=== PATIENT | female | born 1940 | race Hispanic/Latino ===

== ENCOUNTER 2018-02-18 05:11 | Emergency (ER) | payer OTHER ==
[2018-02-18 05:54] LABS: Absolute Lymphocytes (CBC) 2.6 K/uL (0.7-4.9); Absolute Monocytes 0.5 K/uL (0.1-1.3); Absolute Neutrophil 3.9 K/uL (1.8-8.0); Basophils % 0.2 % (0-1.3); Eosinophils % 3.9 % (0-4.4); Hematocrit 33.7 % (36.0-45.0); Lymphocytes % 35.8 % (15.3-44.8); MCV 85.7 fL (80-100); Monocytes % 6.2 % (3.3-12.3); RBC Red Blood Cell Count 3.93 M/uL (3.86-4.86)
[2018-02-18] MEDS ORDERED: NA CHLORIDE 0.9% 1,000 ML ONE ×3 (06:04→08:18)
[2018-02-18 06:11] LABS: Albumin 2.6 g/dL (3.4-5.0); Bilirubin Direct 0.1 mg/dL (0-0.2); Bilirubin Total 0.5 mg/dL (0.2-1.0); Protein, Total 6.5 g/dL (6.4-8.2)
[2018-02-18] MEDS ORDERED: METRONIDAZOLE 500mg IVPB 500 MG/100 ML BAG IV ONE (08:18)
[2018-02-18] MEDS ORDERED: CIPROFLOXACIN 400mg IV 400 MG/200 ML BAG IV ONE (08:18)
[2018-02-18 08:41] LABS: Protime INR 1.24
--- NOTE | 2018-02-18 08:41 | EDPHYS ---
Physician Documentation [facility] Name: Mackenzie Cutler Age: 77 yrs Sex: Female : 1940 Arrival Date: 02/18/2018 Time: 05:11 Bed 7 Private MD: ED Physician Corey Mccullough HPI: 02/18 06:03 This 77 yrs old Female presents to ER via EMS with complaints of Rectal kb Bleeding, Syncope. 06:03 The patient presents to the emergency department with bleeding from the rectum/anus, kb that is moderate. Onset: The symptoms/episode began/occurred this morning, at 01:00. Context: the patient has no known special context relating to the rectal area complaint(s). Modifying factors: The symptoms are alleviated by nothing, The symptoms are aggravated by bowel movement. Associate signs and symptoms: Pertinent positives: lower GI bleeding, bright red, Pertinent negatives: abdominal pain, constipation, diarrhea, dysuria, fever, vomiting. The patient has experienced a previous episode. The patient has not recently seen a physician. Pt states she has had 4 bowel movements since 0100 with bright red blood in the toilet afterwards. Sees Dr Granados for GI. PCP is Grzegorz. Historical: - Allergies: 05:27 No Known Allergies; tl2 - Home Meds: 05:34 lisinopril 20 mg Oral tab 1 tab once daily [Active]; aspirin 81 mg Oral TbEC 1 tab once bb daily [Active]; Boniva oral oral [Active]; - PMHx: 05:27 Hypertension; Osteoporosis; tl2 - PSHx: 05:34 Cholecystectomy; Hysterectomy; "vaginal mesh"; bb - Immunization history:: Adult Immunizations up to date. - Social history:: Smoking status: Patient/guardian denies using tobacco. - Ebola Screening: : No symptoms or risks identified at this time. ROS: 06:05 Constitutional: Negative for fever, chills, and weight loss, Cardiovascular: Negative kb for chest pain, palpitations, and edema, Respiratory: Negative for shortness of breath, cough, wheezing, and pleuritic chest pain, MS/Extremity: Negative for injury and deformity, Skin: Negative for injury, rash, and discoloration, Neuro: Negative for headache, weakness, numbness, tingling, and seizure. 06:05 Abdomen/GI: Positive for rectal bleeding, Negative for abdominal pain, nausea, vomiting, and diarrhea, constipation, abdominal cramps, abdominal distension, anorexia. Exam: 06:05 Constitutional: This is a well developed, well nourished patient who is awake, alert, kb and in no acute distress. Head/Face: Normocephalic, atraumatic. Chest/axilla: Normal chest wall appearance and motion. Nontender with no deformity. No lesions are appreciated. Cardiovascular: Regular rate and rhythm with a normal S1 and S2. No gallops, murmurs, or rubs. Normal PMI, no JVD. No pulse deficits. Respiratory: Lungs have equal breath sounds bilaterally, clear to auscultation and percussion. No rales, rhonchi or wheezes noted. No increased work of breathing, no retractions or nasal flaring. Abdomen/GI: Soft, non-tender, with normal bowel sounds. No distension or tympany. No guarding or rebound. No evidence of tenderness throughout. Skin: Warm, dry with normal turgor. Normal color with no rashes, no lesions, and no evidence of cellulitis. MS/ Extremity: Pulses equal, no cyanosis. Neurovascular intact. Full, normal range of motion. Neuro: Awake and alert, GCS 15, oriented to person, place, time, and situation. Cranial nerves II-XII grossly intact. Motor strength 5/5 in all extremities. Sensory grossly intact. Cerebellar exam normal. Normal gait. 06:13 Abdomen/GI: gross blood noted . kb Vital Signs: 05:27 BP 116 / 49; Pulse 75; Resp 16; Temp 97.8(O); Pulse Ox 97% on R/A; Weight 70.31 kg; tl2 Height 5 ft. 2 in. (157.48 cm); Pain 0/10; 06:03 BP 105 / 51 Supine; Pulse 72; Resp 18; bb 06:04 BP 111 / 54; Pulse 73; bb 06:06 BP 96 / 44; Pulse 76; bb 07:54 BP 98 / 40; Pulse 78; Resp 18; Pulse Ox 98% on R/A; jb1 08:39 BP 140 / 67; Pulse 87; Resp 16; Pulse Ox 98% ; jl7 09:14 BP 122 / 67; Pulse 83; Resp 17; Pulse Ox 100% on R/A; jb1 10:15 BP 118 / 56; Pulse 87; Resp 16; Pulse Ox 97% ; jl7 11:15 BP 109 / 53; Pulse 78; Resp 16; Pulse Ox 97% ; jl7 12:36 BP 104 / 84; Pulse 79; Resp 16; Pulse Ox 97% ; jl7 05:27 Body Mass Index 28.35 (70.31 kg, 157.48 cm) tl2 MDM: 05:59 Patient medically screened. kb 06:05 Data reviewed: vital signs, nurses notes. Data interpreted: Pulse oximetry: on room air kb is 97 %. Interpretation: normal. 06:15 ED course: Pt became lightheaded upon standing for orthostatic blood pressure. kb Orthostatic positive. 08:02 Physician consultation: Song Granados MD was called at 07:50, left message . kb 08:22 Physician consultation: Song Granados MD Called at 0805 and 0820 with no answer. Will kb initiate transfer. 08:40 Counseling: I had a detailed discussion with the patient and/or guardian regarding: the kb historical points, exam findings, and any diagnostic results supporting the discharge/admit diagnosis, lab results, radiology results, the need to transfer to another facility, [facility] does not immediately have the required specialist. 02/18 05:39 Order name: Amylase, Serum; Complete Time: 06:12 bb 02/18 05:39 Order name: Basic Metabolic Panel; Complete Time: 06:12 bb 02/18 05:39 Order name: CBC with Diff; Complete Time: 05:59 bb 02/18 05:39 Order name: Creatinine for Radiology; Complete Time: 06:12 bb 02/18 05:39 Order name: Hepatic Function; Complete Time: 06:12 bb 02/18 05:39 Order name: Lipase; Complete Time: 06:12 bb 02/18 05:39 Order name: Type And Screen; Complete Time: 10:39 bb 02/18 08:08 Order name: Bb Add On bd 02/18 08:09 Order name: PT-INR; Complete Time: 08:51 kb 02/18 08:09 Order name: Ptt, Activated; Complete Time: 08:51 kb 02/18 08:09 Order name: Troponin (emerg Dept Use Only); Complete Time: 08:51 kb 02/18 08:24 Order name: ABO rpt EDMS 02/18 05:39 Order name: IV Saline Lock; Complete Time: 05:39 bb 02/18 05:39 Order name: Labs collected and sent; Complete Time: 05:39 bb 02/18 07:43 Order name: Vital Signs; Complete Time: 08:39 kb 02/18 08:09 Order name: Cardiac monitoring; Complete Time: 08:38 kb 02/18 08:09 Order name: EKG; Complete Time: 08:09 kb 02/18 08:09 Order name: EKG - Nurse/Tech; Complete Time: 10:11 kb Administered Medications: 06:14 Drug: NS 0.9% 1000 ml Route: IV; Rate: 1000 ml; Site: right antecubital; bb 07:15 Follow up: IV Status: Completed infusion jl7 08:25 Drug: Cipro 400 mg Volume: 200 ml; Route: IVPB; Infused Over: 60 mins; Site: right jl7 antecubital; 09:25 Follow up: Response: No adverse reaction; IV Status: Completed infusion jl7 08:30 Drug: NS 0.9% 1000 ml Route: IV; Rate: 125 ml/hr; Site: right antecubital; jl7 12:39 Follow up: IV Status: Infusion continued upon transfer jl7 08:38 Drug: Flagyl 500 mg Volume: 100 ml; Route: IVPB; Rate: 200 ml/hr; Infused Over: 30 jl7 mins; Site: right antecubital; 09:08 Follow up: Response: No adverse reaction; IV Status: Completed infusion jl7 Disposition: 02/18/18 08:41 Transfer ordered to [facility]. Diagnosis is Gastrointestinal hemorrhage, unspecified. - Reason for transfer: Higher level of care. - Accepting physician is Mary. - Condition is Stable. - Problem is new. - Symptoms are unchanged. Addendum: 03/05/2018 19:00 Co-signature as Attending Physician, Corey Mccullough MD. lindsey frazier Signatures: Dispatcher [employer] EDNasrin Cabrales, CURRENCY EXAMINER-C CURRENCY EXAMINER-Corey Brewster MD MD pkl Ballard, Brenda, RN RN Taylor Villarreal, RN RN tl2 Tigre Pisano RN RN jl7 Corrections: (The following items were deleted from the chart) 02/18 06:12 06:03 Pt states she has had 4 bowel movements since 0100 with bright red blood in the kb toilet afterwards. . kb 06:41 06:03 Pt states she has had 4 bowel movements since 0100 with bright red blood in the kb toilet afterwards. Sees Dr Granados for GI. kb 10:31 08:24 Packed RBCs (Additional Unit) ordered. EDMS EDMS 12:38 08:41 02/18/2018 08:41 Transfer ordered to [facility]. Diagnosis is jl7 Gastrointestinal hemorrhage, unspecified. Reason for transfer: Higher level of care. Accepting physician is Mary. Condition is Stable. Problem is new. Symptoms are unchanged. kb
--- NOTE | 2018-02-18 08:41 | ER ---
Nurse's Notes [facility] Name: Mackenzie Cutler Age: 77 yrs Sex: Female : 1940 Arrival Date: 02/18/2018 Time: 05:11 Bed 7 Private MD: Diagnosis: Gastrointestinal hemorrhage, unspecified Presentation: 02/18 05:25 Presenting complaint: Patient states: woke up this morning and had 4-5 episodes of tl2 bright red stool. Pt reports feeling dizzy and weak. Transition of care: patient was not received from another setting of care. Onset of symptoms was February 18, 2018 at 04:30. Risk Assessment: Do you want to hurt yourself or someone else? Patient reports no desire to harm self or others. Initial Sepsis Screen: Does the patient meet any 2 criteria? No. Patient's initial sepsis screen is negative. Does the patient have a suspected source of infection? No. Patient's initial sepsis screen is negative. Care prior to arrival: None. 05:25 Method Of Arrival: EMS: [facility] tl2 05:25 Acuity: KAREN 3 tl2 Historical: - Allergies: 05:27 No Known Allergies; tl2 - Home Meds: 05:34 lisinopril 20 mg Oral tab 1 tab once daily [Active]; aspirin 81 mg Oral TbEC 1 tab once bb daily [Active]; Boniva oral oral [Active]; - PMHx: 05:27 Hypertension; Osteoporosis; tl2 - PSHx: 05:34 Cholecystectomy; Hysterectomy; "vaginal mesh"; bb - Immunization history:: Adult Immunizations up to date. - Social history:: Smoking status: Patient/guardian denies using tobacco. - Ebola Screening: : No symptoms or risks identified at this time. Screenin:28 Abuse screen: Denies threats or abuse. Nutritional screening: No deficits noted. tl2 Tuberculosis screening: No symptoms or risk factors identified. Fall Risk Gait- Weak (10 pts.). Assessment: 05:36 General: Appears in no apparent distress. Behavior is calm, cooperative. Pain: Denies bb pain. Neuro: Level of Consciousness is awake, alert, obeys commands, Oriented to person, place, time, situation. Cardiovascular: Heart tones S1 S2 present Capillary refill < 3 seconds Patient's skin is warm and dry. Pulses are all present. Edema is absent. Rhythm is sinus rhythm. Respiratory: Respiratory effort is even, unlabored, Respiratory pattern is regular, Breath sounds are clear bilaterally. GI: Abdomen is non-distended, Bowel sounds present X 4 quads. Abd is soft and non tender X 4 quads. Reports rectal bleeding. : No signs and/or symptoms were reported regarding the genitourinary system. Derm: Skin is dry, Skin is normal, Skin temperature is warm. Musculoskeletal: Circulation, motion, and sensation intact. 06:25 Reassessment: Patient and/or family updated on plan of care and expected duration. Pain bb level reassessed. Patient is alert, oriented x 3, equal unlabored respirations, skin warm/dry/pink. 07:30 Reassessment: Patient and/or family updated on plan of care and expected duration. Pain jl7 level reassessed. Patient is alert, oriented x 3, equal unlabored respirations, skin warm/dry/pink. 08:30 Reassessment: Patient and/or family updated on plan of care and expected duration. Pain jl7 level reassessed. Patient is alert, oriented x 3, equal unlabored respirations, skin warm/dry/pink. ERP at bedside discussing plan of care. 08:59 Reassessment: ERIK Galvez at [facility] is unable to take report at this jl7 time and will call to get report. 09:30 Reassessment: Report given to ERIK Galvez. jl 10:30 Reassessment: Awaiting EMS transportation to return from another transfer, Pt and jl7 family updated. 11:30 Reassessment: Patient and/or family updated on plan of care and expected duration. Pain jl7 level reassessed. Patient is alert, oriented x 3, equal unlabored respirations, skin warm/dry/pink. 12:37 Reassessment: [facility] at bedside to transfer pt. jl7 Vital Signs: 05:27 BP 116 / 49; Pulse 75; Resp 16; Temp 97.8(O); Pulse Ox 97% on R/A; Weight 70.31 kg; tl2 Height 5 ft. 2 in. (157.48 cm); Pain 0/10; 06:03 BP 105 / 51 Supine; Pulse 72; Resp 18; bb 06:04 BP 111 / 54; Pulse 73; bb 06:06 BP 96 / 44; Pulse 76; bb 07:54 BP 98 / 40; Pulse 78; Resp 18; Pulse Ox 98% on R/A; jb1 08:39 BP 140 / 67; Pulse 87; Resp 16; Pulse Ox 98% ; jl7 09:14 BP 122 / 67; Pulse 83; Resp 17; Pulse Ox 100% on R/A; jb1 10:15 BP 118 / 56; Pulse 87; Resp 16; Pulse Ox 97% ; jl7 11:15 BP 109 / 53; Pulse 78; Resp 16; Pulse Ox 97% ; jl7 12:36 BP 104 / 84; Pulse 79; Resp 16; Pulse Ox 97% ; jl7 05:27 Body Mass Index 28.35 (70.31 kg, 157.48 cm) tl2 ED Course: 05:11 Patient arrived in ED. ds1 05:26 Triage completed. tl2 05:27 Arm band placed on right wrist. tl2 05:28 Patient has correct armband on for positive identification. Placed in gown. Bed in low tl2 position. Call light in reach. Side rails up X2. 05:28 Inserted saline lock: 20 gauge in right antecubital area, using aseptic technique. tl2 Blood collected. placed by ERIK Galeana. 05:36 Warm blanket given. bb 05:45 Initial lab(s) drawn, by [facility], sent to lab. T\\T\\S collected, blood band applied to patient. bb 05:51 Susana Mota RN is Primary Nurse. ea 05:58 Nasrin Matos FNP-C is PHCP. kb 05:58 Croey Mccullough MD is Attending Physician. kb 08:30 Inserted saline lock: 20 gauge in left forearm, using aseptic technique. jl7 08:30 No provider procedures requiring assistance completed. Patient transferred, IV remains jl7 in place. intact, No redness/swelling at site. 08:39 Primary Nurse role handed off by Susana Mota RN jl7 08:39 Tigre Pisano RN is Primary Nurse. jl7 09:45 Assisted to bedside commode. jl7 11:00 transfer transportation to receiving facility. jl7 11:53 Assisted to bedside commode. jl7 Administered Medications: 06:14 Drug: NS 0.9% 1000 ml Route: IV; Rate: 1000 ml; Site: right antecubital; bb 07:15 Follow up: IV Status: Completed infusion jl7 08:25 Drug: Cipro 400 mg Volume: 200 ml; Route: IVPB; Infused Over: 60 mins; Site: right jl7 antecubital; 09:25 Follow up: Response: No adverse reaction; IV Status: Completed infusion jl7 08:30 Drug: NS 0.9% 1000 ml Route: IV; Rate: 125 ml/hr; Site: right antecubital; jl7 12:39 Follow up: IV Status: Infusion continued upon transfer jl7 08:38 Drug: Flagyl 500 mg Volume: 100 ml; Route: IVPB; Rate: 200 ml/hr; Infused Over: 30 jl7 mins; Site: right antecubital; 09:08 Follow up: Response: No adverse reaction; IV Status: Completed infusion jl7 Outcome: 08:41 ER care complete, transfer ordered by MD. muhammad 12:35 Transferred by ground EMS to [facility], Transfer form completed. jl7 X-rays sent w/ patient. 12:35 Condition: stable 12:35 Discharge instructions given to patient, family, Instructed on the need for transfer, Demonstrated understanding of instructions. 12:38 Patient left the ED. jl7 Signatures: Chucky Atwood1 Nasrin Matos, COMMUNITY SPECIALIST-C COMMUNITY SPECIALIST-Britney Carlton ds1 Lissett Tomas RN RN bb Taylor Mendez RN RN tl2 Tigre Pisano RN RN jl7 Susana Mota RN RN ea
--- NOTE | 2018-02-19 07:51 | EKG ---
Test Date: 2018-02-18 Test Time: 10:07:15 Parking Lot Spotter: COLT MEASUREMENT RESULTS: Intervals: Rate: 86 KS: 172 QRSD: 86 QT: 414 QTc: 495 [place]: P: 55 KS: 172 QRS: 58 T: 35 INTERPRETIVE STATEMENTS: Normal sinus rhythm Prolonged QT Abnormal ECG Compared to ECG 08/22/2017 23:03:32 Prolonged QT interval now present ST (T wave) deviation no longer present Electronically Signed On 02-19-18 07:50:41 CDT by Enrico Morocho
== END 2018-02-18 12:38 | disposition short-term general hospital (02) ==
LOC: ER 05:11
DX: K92.2 Gastrointestinal hemorrhage, unspecified (principal); I10 Essential (primary) hypertension; M81.0 Age-related osteoporosis without current pathological fracture
CPT/HCPCS: 36415; 80048; 80076; 82150; 83690; 84484; 85025; 85610; 85730; 86850; 86900; 86901; 93005; J0744; J7030 ×3; 96361; 96365; 99285

== ENCOUNTER 2019-07-14 12:58 | Emergency (ER) | payer OTHER ==
--- OUTSIDE RECORDS SUMMARY | 2019-07-14 13:00 | XMS REPORT ---
:1940 [facility] Address [address] [place] [address] Care Team Providers Name Role Phone RACHELLE BURT Unavailable Unavailable Problems This patient has no known problems. Allergies, Adverse Reactions, Alerts This patient has no known allergies or adverse reactions. Medications This patient has no known medications. 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 Signing Pathologist Direct Phone Line: [phone] signed by Shashank Francis MD on 02/20/2018 at 3:34 [id number] bleedingA. Appendiceal orifice polyp. B. Hepatic flexure polyp. C. Sigmoid colon polyp Specimen A: Received in formalin labeled "polyp", description "appendiceal orifice polyp" are three fragments measuring 0.6 x 0.6 x 0.1 cm in aggregate. Specimen is entirely submitted in A1. Specimen B: Received in formalin labeled "polyp, colon hepatic flexure" is a single fragment measuring 0.5 cm in greatest dimension. Specimen is entirely submitted in B1.Specimen C: Received in formalin labeled "polyp, colon sigmoid" is a single fragment measuring 0.5 cm in greatest dimension. Specimen is entirely submitted in C1. DB/ew PERFORMED. FERRITIN 2018-02-20 13:42:00 Test Item Value Reference Range Comments FERRITIN (BEAKER) (test wsyo=533) 23 ng/mL 5-275 IRON, TIBC, % SAT. (WITHOUT FERRITIN)2018-02-20 13:22:00 Test Item Value Reference Range Comments IRON (BEAKER) (test ggly=186) 22 ug/dL 40-160 TOTAL IRON BINDING CAPACITY (BEAKER) (test 263 ug/dL 250-450 kzpc=550) IRON % SATURATION (2) (BEAKER) (test aljg=8649) 8 % 20-55 HEMOGLOBIN AND [id number] 12:16:00 Test Item Value Reference Range Comments HEMOGLOBIN (BEAKER) (test jvtn=317) 7.3 GM/DL 11.2-15.7 HEMATOCRIT (BEAKER) (test vjhc=029) 22.7 % 34.1-44.9 HEMOGLOBIN AND [id number] 04:48:00 Test Item Value Reference Range Comments HEMOGLOBIN (BEAKER) (test gfvx=317) 7.4 GM/DL 11.2-15.7 HEMATOCRIT (BEAKER) (test bmvz=379) 22.7 % 34.1-44.9 HEMOGLOBIN AND [id number] 18:18:00 Test Item Value Reference Range Comments HEMOGLOBIN (BEAKER) (test mpap=550) 8.9 GM/DL 11.2-15.7 HEMATOCRIT (BEAKER) (test fysc=542) 27.8 % 34.1-44.9 HEMOGLOBIN AND [id number] 12:13:00 Test Item Value Reference Range Comments HEMOGLOBIN (BEAKER) (test jgzm=944) 6.5 GM/DL 11.2-15.7 HEMATOCRIT (BEAKER) (test bggt=393) 20.2 % 34.1-44.9 [id number] 03:43:00 Test Item Value Reference Range Comments MAGNESIUM (BEAKER) (test ohrl=492) 2.2 mg/dL 1.6-2.6 BASIC METABOLIC [id number] 03:43:00 Test Item Value Reference Range Comments SODIUM (BEAKER) (test 141 meq/L 136-145 scni=224) POTASSIUM (BEAKER) (test 3.9 meq/L 3.5-5.1 vfuu=564) CHLORIDE (BEAKER) (test 113 meq/L 98-107 khfq=058) CO2 (BEAKER) (test 22 meq/L 22-29 wyvb=217) BLOOD UREA NITROGEN 29 mg/dL 7-21 (BEAKER) (test eahw=733) CREATININE (BEAKER) (test 0.77 mg/dL 0.57-1.25 anpj=058) GLUCOSE RANDOM (BEAKER) 147 mg/dL 70-105 (test dozb=856) CALCIUM (BEAKER) (test 8.5 mg/dL 8.4-10.2 zbfa=364) EGFR (BEAKER) (test 73 mL/min/1.73 sq m ESTIMATED GFR IS NOT qhhw=8997) ACCURATE CREATININE CLEARANCE IN PREDICTING GLOMERULAR FILTRATION RATE. ESTIMATED GFR IS NOT APPLICABLE FOR DIALYSIS PATIENTS. HEMOGLOBIN AND [id number] 03:24:00 Test Item Value Reference Range Comments HEMOGLOBIN (BEAKER) (test dbud=376) 7.5 GM/DL 11.2-15.7 HEMATOCRIT (BEAKER) (test mtga=344) 23.6 % 34.1-44.9 CBC W/PLT COUNT & AUTO [id number] 03:24:00 Test Item Value Reference Range Comments WHITE BLOOD CELL COUNT (BEAKER) (test qaxi=408) 8.7 K/ L 3.5-10.5 RED BLOOD CELL COUNT (BEAKER) (test jsbz=540) 2.65 M/ L 3.93-5.22 HEMOGLOBIN (BEAKER) (test uvoe=658) 7.5 GM/DL 11.2-15.7 HEMATOCRIT (BEAKER) (test abeq=420) 23.6 % 34.1-44.9 MEAN CORPUSCULAR VOLUME (BEAKER) (test vrhm=064) 89.1 fL 79.4-94.8 MEAN CORPUSCULAR HEMOGLOBIN (BEAKER) (test 28.3 pg 25.6-32.2 ynjb=737) MEAN CORPUSCULAR HEMOGLOBIN CONC (BEAKER) (test 31.8 GM/DL 32.2-35.5 txtv=142) RED CELL DISTRIBUTION WIDTH (BEAKER) (test 15.4 % 11.7-14.4 gmid=408) PLATELET COUNT (BEAKER) (test pzwv=383) 126 K/CU MM 150-450 MEAN PLATELET VOLUME (BEAKER) (test pavd=681) 11.8 fL 9.4-12.3 NUCLEATED RED BLOOD CELLS (BEAKER) (test 0 /100 WBC 0-0 kzkf=187) NEUTROPHILS RELATIVE PERCENT (BEAKER) (test 68 % petn=181) LYMPHOCYTES RELATIVE PERCENT (BEAKER) (test 24 % ntdc=802) MONOCYTES RELATIVE PERCENT (BEAKER) (test 6 % lzeu=133) EOSINOPHILS RELATIVE PERCENT (BEAKER) (test 1 % ufoy=369) BASOPHILS RELATIVE PERCENT (BEAKER) (test 0 % oygb=969) NEUTROPHILS ABSOLUTE COUNT (BEAKER) (test 5.95 K/ L 1.56-6.13 brue=189) LYMPHOCYTES ABSOLUTE COUNT (BEAKER) (test 2.13 K/ L 1.18-3.74 ydis=761) MONOCYTES ABSOLUTE COUNT (BEAKER) (test 0.53 K/ L 0.24-0.36 dnyk=546) EOSINOPHILS ABSOLUTE COUNT (BEAKER) (test 0.04 K/ L 0.04-0.36 bppq=234) BASOPHILS ABSOLUTE COUNT (BEAKER) (test 0.01 K/ L 0.01-0.08 bafz=722) IMMATURE GRANULOCYTES-RELATIVE PERCENT (BEAKER) 1 % 0-1 (test rdsn=3946) HEMOGLOBIN AND [id number] 23:21:00 Test Item Value Reference Range Comments HEMOGLOBIN (BEAKER) (test jais=043) 8.0 GM/DL 11.2-15.7 HEMATOCRIT (BEAKER) (test ycyt=006) 24.6 % 34.1-44.9 [id number] 18:18:00 Test Item Value Reference Range Comments MAGNESIUM (BEAKER) (test aozz=469) 1.6 mg/dL 1.6-2.6 BASIC METABOLIC [id number] 18:18:00 Test Item Value Reference Range Comments SODIUM (BEAKER) (test 139 meq/L 136-145 gnnp=705) POTASSIUM (BEAKER) (test 4.1 meq/L 3.5-5.1 yojq=262) CHLORIDE (BEAKER) (test 112 meq/L 98-107 yffy=867) CO2 (BEAKER) (test 24 meq/L 22-29 eafo=279) BLOOD UREA NITROGEN 27 mg/dL 7-21 (BEAKER) (test rjpn=066) CREATININE (BEAKER) (test 0.73 mg/dL 0.57-1.25 tcev=271) GLUCOSE RANDOM (BEAKER) 119 mg/dL 70-105 (test ycok=810) CALCIUM (BEAKER) (test 8.8 mg/dL 8.4-10.2 guvz=405) EGFR (BEAKER) (test 77 mL/min/1.73 sq m ESTIMATED GFR IS NOT tstb=8875) ACCURATE CREATININE CLEARANCE IN PREDICTING GLOMERULAR FILTRATION RATE. ESTIMATED GFR IS NOT APPLICABLE FOR DIALYSIS PATIENTS. [id number] 18:06:00 Test Item Value Reference Range Comments PROTIME (BEAKER) (test doai=057) 17.5 seconds 11.7-14.7 INR (BEAKER) (test ilok=988) 1.4 <=5.9 PARTIAL THROMBOPLASTIN TIME (BEAKER) (test 34.1 seconds 22.5-36.0 offf=388) RECOMMENDED COUMADIN/WARFARIN INR THERAPY RANGESSTANDARD DOSE: 2.0 - 3.0 Includes: PROPHYLAXIS forvenous thrombosis, systemic embolization; TREATMENT for venous thrombosis and/or pulmonary embolus.HIGH RISK: Target INR is 2.5-3.5 for patients with mechanical heart valves.CBC W/PLT COUNT & AUTO [id number] 17:58:00 Test Item Value Reference Range Comments WHITE BLOOD CELL COUNT (BEAKER) (test ouey=952) 8.5 K/ L 3.5-10.5 RED BLOOD CELL COUNT (BEAKER) (test jeus=034) 3.09 M/ L 3.93-5.22 HEMOGLOBIN (BEAKER) (test djty=968) 8.8 GM/DL 11.2-15.7 HEMATOCRIT (BEAKER) (test sjnx=433) 27.5 % 34.1-44.9 MEAN CORPUSCULAR VOLUME (BEAKER) (test xsck=577) 89.0 fL 79.4-94.8 MEAN CORPUSCULAR HEMOGLOBIN (BEAKER) (test 28.5 pg 25.6-32.2 emsk=301) MEAN CORPUSCULAR HEMOGLOBIN CONC (BEAKER) (test 32.0 GM/DL 32.2-35.5 khcr=896) RED CELL DISTRIBUTION WIDTH (BEAKER) (test 15.0 % 11.7-14.4 ktri=519) PLATELET COUNT (BEAKER) (test kfps=517) 122 K/CU MM 150-450 MEAN PLATELET VOLUME (BEAKER) (test leyx=250) 11.2 fL 9.4-12.3 NUCLEATED RED BLOOD CELLS (BEAKER) (test 0 /100 WBC 0-0 cgba=331) NEUTROPHILS RELATIVE PERCENT (BEAKER) (test 66 % rqqi=571) LYMPHOCYTES RELATIVE PERCENT (BEAKER) (test 26 % acwl=579) MONOCYTES RELATIVE PERCENT (BEAKER) (test 7 % tlze=614) EOSINOPHILS RELATIVE PERCENT (BEAKER) (test 1 % tiqb=610) BASOPHILS RELATIVE PERCENT (BEAKER) (test 0 % jpjd=520) NEUTROPHILS ABSOLUTE COUNT (BEAKER) (test 5.60 K/ L 1.56-6.13 mqie=720) LYMPHOCYTES ABSOLUTE COUNT (BEAKER) (test 2.18 K/ L 1.18-3.74 dwnr=871) MONOCYTES ABSOLUTE COUNT (BEAKER) (test 0.58 K/ L 0.24-0.36 kbgy=218) EOSINOPHILS ABSOLUTE COUNT (BEAKER) (test 0.06 K/ L 0.04-0.36 uxvv=452) BASOPHILS ABSOLUTE COUNT (BEAKER) (test 0.02 K/ L 0.01-0.08 rlhk=572) IMMATURE GRANULOCYTES-RELATIVE PERCENT (BEAKER) 0 % 0-1 (test ntas=5626) RAD, CHEST, 1 VIEW, NON [id number] 17:41:00Reason for exam:->coughShould this be performed at the bedside?->YesFINAL REPORT Comparison: None TECHNIQUE: Single view of the chest FINDINGS: There is atelectasis in the lung bases. Otherwise lungs are clear. Cardiac silhouette is within normallimits. Aortic calcifications are seen. No acute skeletal abnormality. Signed: Antonella Tomlinson Verified Date/Time: 02/18/2018 17:41: 25 Reading Location: [address] Reading Room
[2019-07-14] MEDS ORDERED: HYDROCODONE/APAP 5/325 MG TAB ONE (14:10)
[2019-07-14 14:28] LABS: Absolute Lymphocytes (CBC) 1.7 K/uL (0.7-4.9); Basophils % 0.5 % (0-1.3); Hematocrit 43.2 % (36.0-45.0); MPV 10.5 fL (7.6-11.3); RBC Red Blood Cell Count 4.78 M/uL (3.86-4.86)
[2019-07-14 14:41] LABS: BUN Blood Urea Nitrogen 17 mg/dL (7-18); Bicarbonate 28 mmol/L (21-32); Glucose Level 122 mg/dL (74-106); Potassium 3.8 mmol/L (3.5-5.1); Sodium Level 144 mmol/L (136-145); Troponin (Emerg Dept Use Only) < 0.02 ng/mL (0.0-0.045)
--- NOTE | 2019-07-14 15:16 | RAD REPORT ---
EXAM DESCRIPTION: RAD - Chest Single View - 07/14/2019 2:08 pm CLINICAL HISTORY: mid scapular pain Chest pain. COMPARISON: Chest Single View dated 08/22/2017 FINDINGS: Portable technique limits examination quality. The lungs are grossly clear. The heart is mildly enlarged in size. Chronic blunting the left costophr enic angle noted. IMPRESSION: Stable chest since 08/22/2017.
--- NOTE | 2019-07-14 15:52 | RAD REPORT ---
EXAM DESCRIPTION: CT - Angio Aorta For Dissection - 07/14/2019 3:37 pm CLINICAL HISTORY: Chest pain radiating to the back. HTN, mid scapular pain COMPARISON: LUMBAR SPINE 3 VIEWS dated 08/27/2015 TECHNIQUE: CT angiography of the aorta was performed with MIPs. All CT scans are performed using dose optimization technique as appropriate and may include automated exposure control or mA/KV adjustment according to patient size. FINDINGS: A left aortic arch is present with bovine branching pattern of the great vessels.No aortic dissection is seen. A small infrarenal abdominal aortic aneurysm is present measuring 3.2 cm in ante rior-posterior dimension. No flow-limiting stenosis. The celiac axis, SMA, SAÚL and renal arteries ar e patent with prominent atherosclerosis noted. Moderate soft plaque is present narrowing the SMA mode rately. . No evidence of pulmonary embolism. Linear atelectasis is present in both lung bases. No focal infiltrate is evident. Mild liver cirrhosis pattern is seen with nodular contour. Small hiatal hernia. Spleen is mildly enla rged.Pancreas, adrenal glands and kidneys show no acute process. No bowel obstruction, free fluid or abscess.Prominent sigmoid diverticulosis coli without diverticuli tis. The appendix is normal.No pathologic enlarged lymphadenopathy identified.Small bilateral fat con taining inguinal hernia. High-grade T11 compression fractures seen, likely chronic. IMPRESSION: No acute aortic finding is demonstrated. Mild cirrhosis. Prominent diverticulosis coli involving the sigmoid colon without diverticulitis.
--- NOTE | 2019-07-14 16:07 | ER ---
Nurse's Notes [facility] Name: Mackenzie Cutler Age: 78 yrs Sex: Female : 1940 Arrival Date: 07/14/2019 Time: 13:00 Bed 7 Private MD: Diagnosis: Muscle spasm of back;Abdominal aortic aneurysm, without rupture Presentation: 07/14 13:07 Presenting complaint: Child states: "This morning at 5:30 they called EMS because her aj1 blood pressure was really high but she didn't want to come in. But now her blood pressure was 201/95 and she has chest pressure that goes all the way to her back". Transition of care: patient was not received from another setting of care. Onset of symptoms was July 14, 2019. Risk Assessment: Do you want to hurt yourself or someone else? Patient reports no desire to harm self or others. Initial Sepsis Screen: Does the patient meet any 2 criteria? No. Patient's initial sepsis screen is negative. Does the patient have a suspected source of infection? No. Patient's initial sepsis screen is negative. Care prior to arrival: None. 13:07 Method Of Arrival: Ambulatory aj 13:07 Acuity: KAREN 3 aj1 Triage Assessment: 13:09 General: Appears in no apparent distress. comfortable, Behavior is calm, cooperative, aj1 appropriate for age. Pain: Complains of pain in chest Pain radiates to back Pain currently is 8 out of 10 on a pain scale. Neuro: Level of Consciousness is awake, alert, obeys commands. Cardiovascular: Patient's skin is warm and dry. Respiratory: Airway is patent Respiratory effort is even, unlabored, Respiratory pattern is regular, symmetrical. Historical: - Allergies: 13:09 No Known Allergies; aj1 - Home Meds: 13:09 lisinopril 20 mg Oral tab 1 tab once daily [Active]; aj1 - PMHx: 13:09 Hypertension; Osteoporosis; aj1 - Immunization history:: Flu vaccine is up to date. - Social history:: Smoking status: Patient/guardian denies using tobacco. - Ebola Screening: : Patient denies travel to an Ebola-affected area in the 21 days before illness onset. - Family history:: not pertinent. - Hospitalizations: : No recent hospitalization is reported. Assessment: 13:30 General: Appears in no apparent distress. well groomed, well developed, well nourished, sg Behavior is calm, cooperative, appropriate for age. Pain: Complains of pain in back Quality of pain is described as aching, dull. Neuro: Level of Consciousness is awake, alert, obeys commands, Oriented to person, place, time, Barber Tool Sharpener are equal bilaterally Moves all extremities. Speech is normal, Facial symmetry appears normal. Cardiovascular: Capillary refill is brisk in bilateral fingers Patient's skin is warm and dry. Chest pain is denied. Respiratory: Airway is patent Respiratory effort is even, unlabored, Respiratory pattern is regular, symmetrical. GI: Abdomen is round non-distended, Reports normal bowel habits, tolerance of fluids, tolerance of food. : No signs and/or symptoms were reported regarding the genitourinary system. EENT: No signs and/or symptoms were reported regarding the EENT system. Derm: Skin is pink, warm \\T\\ dry. Musculoskeletal: Circulation, motion, and sensation intact. Range of motion: intact in all extremities. Vital Signs: 13:09 BP 150 / 83; Pulse 86; Resp 18; Temp 98.2; Pulse Ox 98% on R/A; Weight 68.04 kg (R); aj1 Height 5 ft. 2 in. (157.48 cm) (R); 14:59 Pulse 72; Resp 17 S; Temp 98.2; Pulse Ox 96% on R/A; sg 14:59 BP 153 / 70; sg 13:09 Body Mass Index 27.44 (68.04 kg, 157.48 cm) aj1 ED Course: 13:00 Patient arrived in ED. as 13:08 Triage completed. aj1 13:09 Arm band placed on Patient placed in an exam room. aj1 13:13 Marcus Leon, RN is Primary Nurse. sg 13:21 Linden Díaz MD is Attending Physician. rn 14:08 XRAY Chest (1 view) In Process Unspecified. EDMS 14:16 Initial lab(s) drawn, by me, sent to lab. Inserted saline lock: 20 gauge in right em1 antecubital area, using aseptic technique. Blood collected. 15:37 CT Aorta for Dissection In Process Unspecified. EDMS 15:37 CT completed. Patient tolerated procedure well. Patient moved back from CT. bq Administered Medications: 14:19 Drug: [place] 5 mg-325 mg 1 tabs Route: PO; 15:01 Follow up: Response: No adverse reaction sg Outcome: 16:06 Discharge ordered by MD. ponce 16:31 Patient left the ED. sg Signatures: Dispatcher [employer] EDIwona Flowers RN RN aj1 Marcus Leon RN RN sg Quilty, Betty bq Martinez, Amelia as Nieto, Roman, MD MD rn Martinez, Mat 1
--- NOTE | 2019-07-14 16:07 | EDPHYS ---
Physician Documentation [facility] Name: Mackenzie Cutler Age: 78 yrs Sex: Female : 1940 Arrival Date: 07/14/2019 Time: 13:00 Bed 7 Private MD: ED Physician Linden Díaz HPI: 07/14 13:43 This 78 yrs old Female presents to ER via Ambulatory with complaints of High rn Blood Pressure. 13:43 This 78 yrs old Female presents to ER via Ambulatory with complaints of High rn Blood Pressure, back pain. 13:43 The patient has elevated blood pressure and discovered this at home. rn 13:44 The patient presents with pain that is acute. The symptoms are located in the mid rn scapular pain. Onset: The symptoms/episode began/occurred today. The pain does not radiate. Associated signs and symptoms: The patient has no apparent associated signs or symptoms, Pertinent negatives: chest pain, fever, hematuria, incontinence, nausea, numbness, tingling, urinary retention, vomiting, weakness. Modifying factors: The patient symptoms are alleviated by nothing, the patient symptoms are aggravated by movement. Severity of symptoms: At their worst the symptoms were mild, in the emergency department the symptoms are unchanged. The patient has not experienced similar symptoms in the past. Reports has been climbing up and down to take down lucrecia decorations, now having mid scapular pain that comes and goes, lasts only for seconds, no radiation, no direct trauma. No fever/cough/sob. Seen earlier by EMS and cleared, so stayed home.. Historical: - Allergies: 13:09 No Known Allergies; aj1 - Home Meds: 13:09 lisinopril 20 mg Oral tab 1 tab once daily [Active]; aj1 - PMHx: 13:09 Hypertension; Osteoporosis; aj1 - Immunization history:: Flu vaccine is up to date. - Social history:: Smoking status: Patient/guardian denies using tobacco. - Ebola Screening: : Patient denies travel to an Ebola-affected area in the 21 days before illness onset. - Family history:: not pertinent. - Hospitalizations: : No recent hospitalization is reported. ROS: 13:44 Constitutional: Negative for fever, chills, and weight loss, Eyes: Negative for injury, rn pain, redness, and discharge, Neck: Negative for injury, pain, and swelling, Cardiovascular: Negative for chest pain, palpitations, and edema, Respiratory: Negative for shortness of breath, cough, wheezing, and pleuritic chest pain, Abdomen/GI: Negative for abdominal pain, nausea, vomiting, diarrhea, and constipation, Back: + mid scapular pain MS/Extremity: Negative for injury and deformity, Skin: Negative for injury, rash, and discoloration, Neuro: Negative for headache, weakness, numbness, tingling, and seizure. Exam: 13:44 Constitutional: This is a well developed, well nourished patient who is awake, alert, rn and in no acute distress. Sitting on edge of bed. Neck: Trachea midline, no thyromegaly or masses palpated, and no cervical lymphadenopathy. Supple, full range of motion without nuchal rigidity, or vertebral point tenderness. No Meningismus. Cardiovascular: Regular rate and rhythm. No pulse deficits. Respiratory: No increased work of breathing, no retractions or nasal flaring. Abdomen/GI: soft, non-tender Back: No spinal tenderness, + midscapular reproducible pain with palpation MS/ Extremity: Pulses equal, no cyanosis. Neurovascular intact. Full, normal range of motion. Equal circumference. Neuro: Awake and alert, GCS 15, oriented to person, place, time, and situation. Cranial nerves II-XII grossly intact. Motor strength 5/5 in all extremities. Sensory grossly intact. Cerebellar exam normal. Normal gait. Vital Signs: 13:09 BP 150 / 83; Pulse 86; Resp 18; Temp 98.2; Pulse Ox 98% on R/A; Weight 68.04 kg (R); aj1 Height 5 ft. 2 in. (157.48 cm) (R); 14:59 Pulse 72; Resp 17 S; Temp 98.2; Pulse Ox 96% on R/A; sg 14:59 BP 153 / 70; sg 13:09 Body Mass Index 27.44 (68.04 kg, 157.48 cm) aj1 MDM: 13:21 Patient medically screened. rn 16:02 Differential diagnosis: arthritis, muscle spasm, aortic aneurysm, cardiac radiation. rn Data reviewed: vital signs, nurses notes, lab test result(s), EKG, radiologic studies, CT scan, plain films, and as a result, I will discharge patient. Counseling: I had a detailed discussion with the patient and/or guardian regarding: the historical points, exam findings, and any diagnostic results supporting the discharge/admit diagnosis, lab results, radiology results, the need for outpatient follow up, to return to the emergency department if symptoms worsen or persist or if there are any questions or concerns that arise at home. Response to treatment: the patient's symptoms have mildly improved after treatment, and as a result, I will discharge patient. Special discussion: I discussed with the patient/guardian in detail that at this point there is no indication for admission to the hospital. It is understood, however, that if the symptoms persist or worsen the patient needs to return immediately for re-evaluation. ED course: No acute findings, neg trop, no aortic dissection, found incidental possible cirrhosis, AAA, and old compression fracture of T11. Pt will f/u with GI, and told her to f/u with pcp for good BP control and serial u/s and evaluation of AAA. Knows about old compression fracture.. 07/14 13:42 Order name: CBC with Diff; Complete Time: 15:01 rn 07/14 13:42 Order name: Basic Metabolic Panel; Complete Time: 15:01 rn 07/14 13:42 Order name: Troponin (emerg Dept Use Only); Complete Time: 15:01 rn 07/14 13:42 Order name: XRAY Chest (1 view); Complete Time: 15:54 rn 07/14 15:03 Order name: CT Aorta for Dissection; Complete Time: 15:54 rn 07/14 13:42 Order name: IV Start; Complete Time: 14:16 rn 07/14 13:42 Order name: EKG - Nurse/Tech; Complete Time: 14:32 rn Administered Medications: 14:19 Drug: [place] 5 mg-325 mg 1 tabs Route: PO; sg 15:01 Follow up: Response: No adverse reaction sg Disposition: 07/14/19 16:06 Discharged to Home. Impression: Muscle spasm of back, Abdominal aortic aneurysm, without rupture. - Condition is Stable. - Discharge Instructions: Abdominal Aortic Aneurysm, Muscle Cramps and Spasms, Back Exercises, Vwce-vt-[id number], Heat Therapy. - Prescriptions for Cyclobenzaprine 10 mg Oral Tablet - take 1 tablet by ORAL route every 8 hours As needed; 20 tablet. - Medication Reconciliation Form, Thank You Letter, Antibiotic Education, Prescription Opioid Use form. - Follow up: Private Physician; When: As needed; Reason: Recheck today's complaints, Re-evaluation by your physician. - Problem is new. - Symptoms have improved. Signatures: Dispatcher [employer] EDIwona Flowers RN RN aj1 Macrus Leon RN RN sg Linden Díaz MD MD furniture servicer: (The following items were deleted from the chart) 16:31 16:06 07/14/2019 16:06 Discharged to Home. Impression: Muscle spasm of back; Abdominal sg aortic aneurysm, without rupture. Condition is Stable. Forms are Medication Reconciliation Form, Thank You Letter, Antibiotic Education, Prescription Opioid Use. Follow up: Private Physician; When: As needed; Reason: Recheck today's complaints, Re-evaluation by your physician. Problem is new. Symptoms have improved. rn
[2019-07-14 17:14] VITALS: TEMP 98.2
[2019-07-14 17:15] VITALS: BP 153/70; O2SAT 96
== END 2019-07-14 16:31 | disposition home or self-care (01) ==
LOC: ER 12:58
DX: M62.830 Muscle spasm of back (principal); I71.4 Abdominal aortic aneurysm, without rupture; I10 Essential (primary) hypertension
CPT/HCPCS: 85025; 80048; 36415; 84484; 71275; 74175; 71045; 99284; Q9967

== ENCOUNTER 2019-07-25 02:34 | Inpatient (IN) | payer OTHER ==
--- OUTSIDE RECORDS SUMMARY | 2019-07-25 02:38 | XMS REPORT ---
:1940 Author Organization [facility] Address [address] [place] [address] Care Team Providers Name Role Phone RACHELLE BURT Unavailable Unavailable Problems This patient has no known problems. Allergies, Adverse Reactions, Alerts This patient has no known allergies or adverse reactions. Medications This patient has no known medications. Results Test Description Test Time Test Comments Text Results Atomic Results Result Comments TISSUE EXAM 2018-02-20 15:34:00 Surgical Pathology Report Case: [id number] Authorizing Provider: Lay Elizalde MD Collected: 02/19/2018 1637 Ordering Location: [address] Received: 02/20/2018 0812 Service Pathologist: Shashank [...] BIOPSY:TUBULAR ADENOMA. Signing Pathologist Direct Phone Line: [phone] signed by Shashank Francis MD on 02/20/2018 at 3:34 [id number] bleedingA. Appendiceal orifice polyp. B. Hepatic flexure [...] Value Reference Range Comments FERRITIN (BEAKER) (test pwio=035) 23 ng/mL 5-275 IRON, TIBC, % SAT. (WITHOUT FERRITIN)2018-02-20 13:22:00 Test Item Value Reference Range Comments IRON (BEAKER) (test zsrr=123) 22 ug/dL 40-160 TOTAL IRON BINDING CAPACITY (BEAKER) (test 263 ug/dL 250-450 feff=769) IRON % SATURATION (2) (BEAKER) (test swve=3147) 8 % 20-55 HEMOGLOBIN AND [id number] 12:16:00 Test Item Value Reference Range Comments HEMOGLOBIN (BEAKER) (test aepl=593) 7.3 GM/DL 11.2-15.7 HEMATOCRIT (BEAKER) (test sxph=775) 22.7 % 34.1-44.9 HEMOGLOBIN AND [id number] 04:48:00 Test Item Value Reference Range Comments HEMOGLOBIN (BEAKER) (test htkb=319) 7.4 GM/DL 11.2-15.7 HEMATOCRIT (BEAKER) (test przp=074) 22.7 % 34.1-44.9 HEMOGLOBIN AND [id number] 18:18:00 Test Item Value Reference Range Comments HEMOGLOBIN (BEAKER) (test sqok=016) 8.9 GM/DL 11.2-15.7 HEMATOCRIT (BEAKER) (test ludx=844) 27.8 % 34.1-44.9 HEMOGLOBIN AND [id number] 12:13:00 Test Item Value Reference Range Comments HEMOGLOBIN (BEAKER) (test vfzh=648) 6.5 GM/DL 11.2-15.7 HEMATOCRIT (BEAKER) (test tjob=245) 20.2 % 34.1-44.9 [id number] 03:43:00 Test Item Value Reference Range Comments MAGNESIUM (BEAKER) (test hghd=661) 2.2 mg/dL 1.6-2.6 BASIC METABOLIC [id number] 03:43:00 Test Item Value Reference Range Comments SODIUM (BEAKER) (test 141 meq/L 136-145 cxno=672) POTASSIUM (BEAKER) (test 3.9 meq/L 3.5-5.1 nktm=950) CHLORIDE (BEAKER) (test 113 meq/L 98-107 cuaw=818) CO2 (BEAKER) (test 22 meq/L 22-29 rrfv=640) BLOOD UREA NITROGEN 29 mg/dL 7-21 (BEAKER) (test ybsx=609) CREATININE (BEAKER) (test 0.77 mg/dL 0.57-1.25 vtib=770) GLUCOSE RANDOM (BEAKER) 147 mg/dL 70-105 (test gpsc=723) CALCIUM (BEAKER) (test 8.5 mg/dL 8.4-10.2 ofdx=643) EGFR (BEAKER) (test 73 mL/min/1.73 sq m ESTIMATED GFR IS NOT ibly=0283) ACCURATE CREATININE CLEARANCE IN PREDICTING GLOMERULAR FILTRATION RATE. ESTIMATED GFR IS NOT APPLICABLE FOR DIALYSIS PATIENTS. HEMOGLOBIN AND [id number] 03:24:00 Test Item Value Reference Range Comments HEMOGLOBIN (BEAKER) (test ppdf=540) 7.5 GM/DL 11.2-15.7 HEMATOCRIT (BEAKER) (test vlea=510) 23.6 % 34.1-44.9 CBC W/PLT COUNT & AUTO [id number] 03:24:00 Test Item Value Reference Range Comments WHITE BLOOD CELL COUNT (BEAKER) (test irzr=047) 8.7 K/ L 3.5-10.5 RED BLOOD CELL COUNT (BEAKER) (test foug=821) 2.65 M/ L 3.93-5.22 HEMOGLOBIN (BEAKER) (test eflf=386) 7.5 GM/DL 11.2-15.7 HEMATOCRIT (BEAKER) (test bpef=300) 23.6 % 34.1-44.9 MEAN CORPUSCULAR VOLUME (BEAKER) (test fjdf=316) 89.1 fL 79.4-94.8 MEAN CORPUSCULAR HEMOGLOBIN (BEAKER) (test 28.3 pg 25.6-32.2 ncyv=118) MEAN CORPUSCULAR HEMOGLOBIN CONC (BEAKER) (test 31.8 GM/DL 32.2-35.5 fhop=990) RED CELL DISTRIBUTION WIDTH (BEAKER) (test 15.4 % 11.7-14.4 hlib=495) PLATELET COUNT (BEAKER) (test terk=246) 126 K/CU MM 150-450 MEAN PLATELET VOLUME (BEAKER) (test zqho=944) 11.8 fL 9.4-12.3 NUCLEATED RED BLOOD CELLS (BEAKER) (test 0 /100 WBC 0-0 gune=921) NEUTROPHILS RELATIVE PERCENT (BEAKER) (test 68 % ikys=016) LYMPHOCYTES RELATIVE PERCENT (BEAKER) (test 24 % bcgc=931) MONOCYTES RELATIVE PERCENT (BEAKER) (test 6 % ebby=496) EOSINOPHILS RELATIVE PERCENT (BEAKER) (test 1 % rwrj=810) BASOPHILS RELATIVE PERCENT (BEAKER) (test 0 % wows=124) NEUTROPHILS ABSOLUTE COUNT (BEAKER) (test 5.95 K/ L 1.56-6.13 tkit=373) LYMPHOCYTES ABSOLUTE COUNT (BEAKER) (test 2.13 K/ L 1.18-3.74 bzyo=153) MONOCYTES ABSOLUTE COUNT (BEAKER) (test 0.53 K/ L 0.24-0.36 vmph=784) EOSINOPHILS ABSOLUTE COUNT (BEAKER) (test 0.04 K/ L 0.04-0.36 jxrp=572) BASOPHILS ABSOLUTE COUNT (BEAKER) (test 0.01 K/ L 0.01-0.08 gkpr=591) IMMATURE GRANULOCYTES-RELATIVE PERCENT (BEAKER) 1 % 0-1 (test ergy=7645) HEMOGLOBIN AND [id number] 23:21:00 Test Item Value Reference Range Comments HEMOGLOBIN (BEAKER) (test kjlx=103) 8.0 GM/DL 11.2-15.7 HEMATOCRIT (BEAKER) (test mgkw=153) 24.6 % 34.1-44.9 [id number] 18:18:00 Test Item Value Reference Range Comments MAGNESIUM (BEAKER) (test dsls=242) 1.6 mg/dL 1.6-2.6 BASIC METABOLIC [id number] 18:18:00 Test Item Value Reference Range Comments SODIUM (BEAKER) (test 139 meq/L 136-145 jodm=627) POTASSIUM (BEAKER) (test 4.1 meq/L 3.5-5.1 zmra=805) CHLORIDE (BEAKER) (test 112 meq/L 98-107 jwjj=857) CO2 (BEAKER) (test 24 meq/L 22-29 qxoy=067) BLOOD UREA NITROGEN 27 mg/dL 7-21 (BEAKER) (test epmg=344) CREATININE (BEAKER) (test 0.73 mg/dL 0.57-1.25 gypv=036) GLUCOSE RANDOM (BEAKER) 119 mg/dL 70-105 (test unxg=865) CALCIUM (BEAKER) (test 8.8 mg/dL 8.4-10.2 zlln=576) EGFR (BEAKER) (test 77 mL/min/1.73 sq m ESTIMATED GFR IS NOT holi=7060) ACCURATE CREATININE CLEARANCE IN PREDICTING GLOMERULAR FILTRATION RATE. ESTIMATED GFR IS NOT APPLICABLE FOR DIALYSIS PATIENTS. [id number] 18:06:00 Test Item Value Reference Range Comments PROTIME (BEAKER) (test xfpq=895) 17.5 seconds 11.7-14.7 INR (BEAKER) (test dmrs=297) 1.4 <=5.9 PARTIAL THROMBOPLASTIN TIME (BEAKER) (test 34.1 seconds 22.5-36.0 lpid=547) RECOMMENDED COUMADIN/WARFARIN INR THERAPY RANGESSTANDARD DOSE: 2.0 - 3.0 Includes: PROPHYLAXIS forvenous thrombosis, systemic embolization; TREATMENT for venous thrombosis and/or pulmonary embolus.HIGH RISK: Target INR is 2.5-3.5 for patients with mechanical heart valves.CBC W/PLT COUNT & AUTO [id number] 17:58:00 Test Item Value Reference Range Comments WHITE BLOOD CELL COUNT (BEAKER) (test arxl=220) 8.5 K/ L 3.5-10.5 RED BLOOD CELL COUNT (BEAKER) (test mwap=010) 3.09 M/ L 3.93-5.22 HEMOGLOBIN (BEAKER) (test rxkj=431) 8.8 GM/DL 11.2-15.7 HEMATOCRIT (BEAKER) (test dssn=080) 27.5 % 34.1-44.9 MEAN CORPUSCULAR VOLUME (BEAKER) (test jvem=426) 89.0 fL 79.4-94.8 MEAN CORPUSCULAR HEMOGLOBIN (BEAKER) (test 28.5 pg 25.6-32.2 szje=978) MEAN CORPUSCULAR HEMOGLOBIN CONC (BEAKER) (test 32.0 GM/DL 32.2-35.5 srvy=343) RED CELL DISTRIBUTION WIDTH (BEAKER) (test 15.0 % 11.7-14.4 qjml=912) PLATELET COUNT (BEAKER) (test vfnc=488) 122 K/CU MM 150-450 MEAN PLATELET VOLUME (BEAKER) (test hmtp=453) 11.2 fL 9.4-12.3 NUCLEATED RED BLOOD CELLS (BEAKER) (test 0 /100 WBC 0-0 lazb=696) NEUTROPHILS RELATIVE PERCENT (BEAKER) (test 66 % ckvi=194) LYMPHOCYTES RELATIVE PERCENT (BEAKER) (test 26 % atwd=465) MONOCYTES RELATIVE PERCENT (BEAKER) (test 7 % yzyx=073) EOSINOPHILS RELATIVE PERCENT (BEAKER) (test 1 % pucs=973) BASOPHILS RELATIVE PERCENT (BEAKER) (test 0 % yqmq=444) NEUTROPHILS ABSOLUTE COUNT (BEAKER) (test 5.60 K/ L 1.56-6.13 fjay=331) LYMPHOCYTES ABSOLUTE COUNT (BEAKER) (test 2.18 K/ L 1.18-3.74 pvdq=544) MONOCYTES ABSOLUTE COUNT (BEAKER) (test 0.58 K/ L 0.24-0.36 ywnh=555) EOSINOPHILS ABSOLUTE COUNT (BEAKER) (test 0.06 K/ L 0.04-0.36 mtky=449) BASOPHILS ABSOLUTE COUNT (BEAKER) (test 0.02 K/ L 0.01-0.08 fmti=564) IMMATURE GRANULOCYTES-RELATIVE PERCENT (BEAKER) 0 % 0-1 (test qxnt=0222) RAD, CHEST, 1 VIEW, NON [id number] 17:41:00Reason for exam:->coughShould this be performed at the bedside?->YesFINAL REPORT Comparison: None TECHNIQUE: Single view of the chest FINDINGS: There is atelectasis in the lung bases. Otherwise lungs are clear. Cardiac silhouette is within normallimits. Aortic calcifications are seen. No acute skeletal abnormality. Signed: Antonella Tomlinson Verified Date/Time: 02/18/2018 17:41: 25 Reading Location: [address] Reading Room
[2019-07-25 03:39] LABS: Absolute Lymphocytes (CBC) 2.1 K/uL (0.7-4.9); Basophils % 0.6 % (0-1.3); Hematocrit 40.8 % (36.0-45.0); Lymphocytes % 44.8 % (15.3-44.8); MPV 10.9 fL (7.6-11.3); RBC Red Blood Cell Count 4.42 M/uL (3.86-4.86)
[2019-07-25 03:40] LABS: Protime INR 1.22
[2019-07-25 04:11] LABS: Albumin 2.8 g/dL (3.4-5.0); Bilirubin Direct 0.2 mg/dL (0-0.2); Bilirubin Total 0.5 mg/dL (0.2-1.0); Potassium 4.4 mmol/L (3.5-5.1); Protein, Total 6.8 g/dL (6.4-8.2)
--- NOTE | 2019-07-25 04:23 | EDPHYS ---
Physician Documentation [facility] Name: Mackenzie Cutler Age: 78 yrs Sex: Female : 1940 Arrival Date: 07/25/2019 Time: 02:38 Bed 18 Private MD: ED Physician Vick Aquino HPI: 07/25 04:23 This 78 yrs old Female presents to ER via Ambulatory with complaints of Rectal tw4 Bleeding. 04:23 The patient presents to the emergency department with bleeding from the rectum/anus, tw4 that is moderate. Onset: The symptoms/episode began/occurred this morning. Context: the patient has no known special context relating to the rectal area complaint(s). Modifying factors: The symptoms are alleviated by nothing, The symptoms are aggravated by nothing. Associate signs and symptoms: The patient has no apparent associated signs or symptoms. The patient has not experienced similar symptoms in the past. Historical: - Allergies: 03:12 No Known Allergies; ea - Home Meds: 03:12 lisinopril 20 mg Oral tab 1 tab once daily [Active]; ea - PMHx: 03:12 Osteoporosis; Hypertension; ea - PSHx: 03:12 rectal surgery 3 years ago; ea - Immunization history:: Adult Immunizations up to date. - Social history:: Smoking status: Patient denies any tobacco usage or history of. - Ebola Screening: : No symptoms or risks identified at this time. ROS: 04:23 Constitutional: Negative for fever, chills, and weight loss, Eyes: Negative for injury, tw4 pain, redness, and discharge, Cardiovascular: Negative for chest pain, palpitations, and edema, Respiratory: Negative for shortness of breath, cough, wheezing, and pleuritic chest pain. 04:23 Back: Negative for injury and pain, MS/Extremity: Negative for injury and deformity, Skin: Negative for injury, rash, and discoloration. 04:23 Abdomen/GI: Positive for rectal bleeding, Negative for abdominal pain, nausea and vomiting, nausea, vomiting, and diarrhea, nausea, vomiting, diarrhea, constipation, abdominal cramps, abdominal distension, anorexia, dysphagia. Exam: 04:23 Constitutional: This is a well developed, well nourished patient who is awake, alert, tw4 and in no acute distress. Head/Face: Normocephalic, atraumatic. Chest/axilla: Normal chest wall appearance and motion. Nontender with no deformity. No lesions are appreciated. Cardiovascular: Regular rate and rhythm with a normal S1 and S2. No gallops, murmurs, or rubs. Normal PMI, no JVD. No pulse deficits. Respiratory: Lungs have equal breath sounds bilaterally, clear to auscultation and percussion. No rales, rhonchi or wheezes noted. No increased work of breathing, no retractions or nasal flaring. Back: No spinal tenderness. No costovertebral tenderness. Full range of motion. Skin: Warm, dry with normal turgor. Normal color with no rashes, no lesions, and no evidence of cellulitis. MS/ Extremity: Pulses equal, no cyanosis. Neurovascular intact. Full, normal range of motion. Neuro: Awake and alert, GCS 15, oriented to person, place, time, and situation. Cranial nerves II-XII grossly intact. Motor strength 5/5 in all extremities. Sensory grossly intact. Cerebellar exam normal. Normal gait. 04:23 Abdomen/GI: Inspection: abdomen appears normal, Bowel sounds: normal, Palpation: abdomen is soft and non-tender, Rectal exam: Stool: grossly bloody, hemorrhoid(s), internal, without bleeding, without inflammation, without thrombosis. Vital Signs: 02:55 BP 126 / 78; Pulse 90; Resp 18; Temp 97.6; Pulse Ox 96% on R/A; Weight 65.77 kg; Height ea 5 ft. 3 in. (160.02 cm); 04:20 BP 143 / 65; Pulse 77; Resp 18; Pulse Ox 97% on R/A; ea 04:35 BP 130 / 72; Pulse 81; Resp 18; Pulse Ox 99% on R/A; ea 06:20 BP 156 / 76; Pulse 82; Resp 18; Temp 97.8; Pulse Ox 99% on R/A; ea 02:55 Body Mass Index 25.69 (65.77 kg, 160.02 cm) ea MDM: 02:44 Patient medically screened. tw4 04:23 Differential diagnosis: hemorrhoids. Data reviewed: vital signs, nurses notes. Data tw4 interpreted: Pulse oximetry: Interpretation: normal. Counseling: I had a detailed discussion with the patient and/or guardian regarding: the historical points, exam findings, and any diagnostic results supporting the discharge/admit diagnosis. Physician consultation: Gali Mac MD was contacted at 04:20, regarding admission, to the telemetry unit. patient's condition, and will see patient in ED. 04:26 Other consultation: D/W Dr Geller [phone] from will see in the am agrees with treatment plan and admission. 07/25 02:52 Order name: Basic Metabolic Panel; Complete Time: 04:13 07/25 04:13 Interpretation: Normal except: CL 113; BUN 20; GFR 58; GLUC 134. 07/25 02:52 Order name: CBC with Diff 07/25 04:13 Interpretation: Normal except: PLT 127. 07/25 02:52 Order name: Creatinine for Radiology; Complete Time: 04:13 07/25 04:13 Interpretation: Within normal limits: CRE 0.87. 07/25 02:52 Order name: Hepatic Function; Complete Time: 04:13 07/25 04:13 Interpretation: Normal except: AST 47; ALB 2.8; GLOB 4.0; A/G 0.7. 07/25 02:52 Order name: Lipase; Complete Time: 04:13 07/25 04:13 Interpretation: Within normal limits: LIP 147. 07/25 02:52 Order name: PT-INR; Complete Time: 04:13 07/25 04:13 Interpretation: Normal except: PT 14.3. 07/25 02:52 Order name: Ptt, Activated; Complete Time: 04:13 07/25 04:13 Interpretation: Within normal limits: PTT 35.7. 07/25 03:41 Order name: Manual Differential EDAL 07/25 05:25 Order name: Vitamin B12 Level EDAL 07/25 05:25 Order name: Ferritin EDAL 07/25 05:25 Order name: Folic Acid, RBC EDAL 07/25 05:25 Order name: Haptoglobin EDAL 07/25 05:25 Order name: Hemoglobin A1c [facility] 07/25 05:25 Order name: Iron [facility] 07/25 02:52 Order name: IV Saline Lock; Complete Time: 03:13 07/25 02:52 Order name: Labs collected and sent; Complete Time: 03:13 07/25 05:06 Order name: CT Abd/Pelvis - IV Contrast Only tw4 07/25 05:25 Order name: CONS Pharmacy Consult EDMS 07/25 05:25 Order name: NPO EDMS 07/25 05:25 Order name: Lactic Dehydrogenase EDMS 07/25 05:25 Order name: Retic Count EDMS 07/25 05:25 Order name: Type and Screen EDMS 07/25 05:25 Order name: Thyroid Stimulating Hormone EDMS 07/25 05:25 Order name: CBC with Automated Diff EDMS 07/25 05:26 Order name: Hemoglobin EDMS 07/25 05:26 Order name: Hemoglobin EDMS 07/25 05:26 Order name: Hemoglobin EDMS Administered Medications: No medications were administered Disposition: 07/25/19 04:23 Hospitalization ordered by Gali Mac for Inpatient Admission. Preliminary diagnosis are Gastrointestinal hemorrhage, unspecified, Thrombocytopenia, unspecified. - Bed requested for Telemetry/MedSurg (Inpatient). - Status is Inpatient Admission. ea - Condition is Stable. - Problem is new. - Symptoms have improved. UTI on Admission? No Signatures: Dispatcher [employer] EDAL Jennifer Hoyt RN RN tl1 Susana Mota RN RN ea Vick Aquino MD MD tw4 Corrections: (The following items were deleted from the chart) 05:38 04:23 Hospitalization Ordered by Gali Mac MD for Inpatient Admission. Preliminary tl1 diagnosis is Gastrointestinal hemorrhage, unspecified; Thrombocytopenia, unspecified. Bed requested for Telemetry/MedSurg (Inpatient). Status is Inpatient Admission. Condition is Stable. Problem is new. Symptoms have improved. UTI on Admission? No. tw4 06:20 05:38 07/25/2019 04:23 Hospitalization Ordered by Gali Mac MD for Inpatient ea Admission. Preliminary diagnosis is Gastrointestinal hemorrhage, unspecified; Thrombocytopenia, unspecified. Bed requested for Telemetry/MedSurg (Inpatient). Status is Inpatient Admission. Condition is Stable. Problem is new. Symptoms have improved. UTI on Admission? No. tl1
--- NOTE | 2019-07-25 04:23 | ER ---
Nurse's Notes [facility] Name: Mackenzie Cutler Age: 78 yrs Sex: Female : 1940 Arrival Date: 07/25/2019 Time: 02:38 Bed 18 Private MD: Diagnosis: Gastrointestinal hemorrhage, unspecified;Thrombocytopenia, unspecified Presentation: 07/25 02:52 Presenting complaint: Patient states: Reports rectal bleeding that started tonight, ea denies pain, constipation,n/v/d. Reports she is also feeling dizzy since the bleeding started. Daughter states "she has had colon tears in the past and had colon surgery at [facility] in the [facility]". Transition of care: patient was not received from another setting of care. Onset of symptoms was July 25, 2019. Risk Assessment: Do you want to hurt yourself or someone else? Patient reports no desire to harm self or others. Initial Sepsis Screen: Does the patient meet any 2 criteria? No. Patient's initial sepsis screen is negative. Does the patient have a suspected source of infection? No. Patient's initial sepsis screen is negative. Care prior to arrival: None. 02:52 Method Of Arrival: Ambulatory ea 02:52 Acuity: KAREN 3 ea Historical: - Allergies: 03:12 No Known Allergies; ea - Home Meds: 03:12 lisinopril 20 mg Oral tab 1 tab once daily [Active]; ea - PMHx: 03:12 Osteoporosis; Hypertension; ea - PSHx: 03:12 rectal surgery 3 years ago; ea - Immunization history:: Adult Immunizations up to date. - Social history:: Smoking status: Patient denies any tobacco usage or history of. - Ebola Screening: : No symptoms or risks identified at this time. Screenin:11 Abuse screen: Denies threats or abuse. Nutritional screening: No deficits noted. ea Tuberculosis screening: No symptoms or risk factors identified. Fall Risk IV access (20 points). Assessment: 03:13 General: Appears uncomfortable, Behavior is appropriate for age. Pain: Complains of ea pain in abdomen. Neuro: Level of Consciousness is awake, alert, obeys commands, Oriented to person, place, time, situation. Cardiovascular: Patient's skin is warm and dry. Respiratory: Airway is patent Respiratory effort is even, unlabored, Respiratory pattern is regular, symmetrical. GI: Parent/caregiver reports the patient having rectal bleeding x 1 this AM. Derm: Skin is pink, warm \\T\\ dry. 04:20 Reassessment: Patient and/or family updated on plan of care and expected duration. Pain ea level reassessed. Patient is alert, oriented x 3, equal unlabored respirations, skin warm/dry/pink. 05:50 Reassessment: Patient and/or family updated on plan of care and expected duration. Pain ea level reassessed. Patient is alert, oriented x 3, equal unlabored respirations, skin warm/dry/pink. Report called to receiving nurse on fourth floor. 06:19 Reassessment: Patient and/or family updated on plan of care and expected duration. Pain ea level reassessed. Patient is alert, oriented x 3, equal unlabored respirations, skin warm/dry/pink. Pt admitted to fourth floor. Left ED via wheelchair per tech, pt tolerating well. No s/s of pain or discomfort noted at this time. Vital Signs: 02:55 BP 126 / 78; Pulse 90; Resp 18; Temp 97.6; Pulse Ox 96% on R/A; Weight 65.77 kg; Height ea 5 ft. 3 in. (160.02 cm); 04:20 BP 143 / 65; Pulse 77; Resp 18; Pulse Ox 97% on R/A; ea 04:35 BP 130 / 72; Pulse 81; Resp 18; Pulse Ox 99% on R/A; ea 06:20 BP 156 / 76; Pulse 82; Resp 18; Temp 97.8; Pulse Ox 99% on R/A; ea 02:55 Body Mass Index 25.69 (65.77 kg, 160.02 cm) ea ED Course: 02:38 Patient arrived in ED. cf2 02:44 Vick Aquino MD is Attending Physician. tw4 02:52 Susana Mota, ERIK is Primary Nurse. ea 02:55 Triage completed. ea 03:06 Arm band placed on right wrist. Patient placed in an exam room, on a stretcher, on ea pulse oximetry. 03:11 Inserted saline lock: 20 gauge in right antecubital area, using aseptic technique. ea Blood collected. 03:12 Patient has correct armband on for positive identification. Bed in low position. Call ea light in reach. Side rails up X2. Adult w/ patient. 04:22 Gali Mac MD is Hospitalizing Provider. tw4 05:53 No provider procedures requiring assistance completed. Patient admitted, IV remains in ea place. 05:56 CT completed. Patient tolerated procedure well. Patient moved to CT via stretcher. Patient moved back from CT. 06:04 CT Abd/Pelvis - IV Contrast Only In Process Unspecified. EDMS Administered Medications: No medications were administered Outcome: 04:23 Decision to Hospitalize by Provider. tw4 06:18 Admitted to Med/surg accompanied by tech, room 428, Report called to Receiving nurse ea on fourth floor 06:18 Condition: stable 06:18 Instructed on the need for admit, Demonstrated understanding of instructions. 06:20 Patient left the ED. ea Signatures: Dispatcher [employer] EDJohn Martinez Elena, RN RN Vick Spears MD MD tw4 Trinidad Rodriges 2
[2019-07-25 05:22] LABS: Blood Morphology Comment NOT SEEN (NOT SEEN); Platelet Estimate ADEQ
[2019-07-25] MEDS ORDERED: ONDANSETRON 4 MG/2 ML VIAL IV PRN (05:23)
[2019-07-25] MEDS ORDERED: CIPROFLOXACIN 400mg IV 400 MG/200 ML BAG IV ONE (05:23)
--- NOTE | 2019-07-25 05:36 | P.HP ---
Certification for Inpatient Patient admitted to: Inpatient With expected LOS: >2 Midnights Practitioner: I am a practitioner with admitting privileges, knowledge of patient current condition, hospital course, and medical plan of care. Services: Services provided to patient in accordance with Admission requirements found in Title 42 Section 412.3 of the Code of Federal Regulations Patient History Date of Service: 07/25/19 History of Present Illness: ronnie gamboa is a 78yoF w/ pmhx of HTN who presents to the ED w/ bright red blood per rectum. she reports hx of GIB 3 years ago where she was diagnosed w/ intestinal tear resulting in surgical repair. she was recently seen in the ED 2 weeks ago for CP and had a CTA w/ noted liver cirrhosis and diverticulosis. in the ED she has HTN no tachycardia and a bloody BM in the ER. she reports waking up to use the restroom with the urge to defecate and noting blood in the toilet. she reports associated dizziness but no syncopal episodes. she denies fever, chills, DOTSON, cp, sob, n/v, abd pain, LE swelling, bloating. Allergies NKDA Allergy (Uncoded 08/14/15 12:29) Unknown No Known Allergies Allergy (Uncoded 08/23/17 00:08) Unknown Home Medications: levoFLOXacin [Levaquin] 500 mg PO DAILY #14 tab 08/14/15 - Past Medical/Surgical History Diabetic: No -: HTN -: hysterectomy -: cholecystectomy -: bladder sx - Family History Brother -: Diabetes - Social History Alcohol use: No CD- Drugs: No Caffeine use: Yes Review of Systems General: Malaise Eyes: Unremarkable ENT: Unremarkable Respiratory: Unremarkable Cardiovascular: Unremarkable Gastrointestinal: Hematochezia Genitourinary: Unremarkable Musculoskeletal: Unremarkable Integumentary: Unremarkable Neurological: Weakness, Other (dizziness), As per HPI Physical Examination - Physical Exam General: Alert, In no apparent distress, Oriented x3, Cooperative, Cachectic, Other (tinted skin) HEENT: Atraumatic Neck: Supple Respiratory: Clear to auscultation bilaterally, Normal air movement Cardiovascular: No edema, Normal pulses, Regular rate/rhythm, No murmurs Capillary refill: <2 Seconds Gastrointestinal: Soft and benign, Non-distended, No tenderness, No guarding, Hyperactive Musculoskeletal: No clubbing Integumentary: No rashes, No breakdown, No significant lesion Neurological: Normal speech External genitalia: Deferred Rectal: Deferred - Studies Laboratory Data (last 24 hrs) 07/25/19 03:05: PT 14.3 H, INR 1.22, APTT 35.7 07/25/19 03:05: Creatinine 0.87 07/25/19 03:05: WBC 4.7, Hgb 13.7, Hct 40.8, Plt Count 127 L 07/25/19 03:05: Sodium 144, Potassium 4.4, BUN 20 H, Creatinine 0.94, Glucose 134 H, Total Bilirubin 0.5, AST 47 H, ALT 36, Alkaline Phosphatase 98, Lipase 147 Assessment and Plan - Plan 78yoF admitted w/ Lower GI bleed w/ BRBPR - 2nd episode will start on tele obtain a1c and tsh start IVF, start on broad spectrum abx GI consulted from the ED trend H/H keep NPO w/ ice chips anemia - likely 2/2 chronic disease anemia w/u, type and screen trend H/H mild cirrhosis - per CT scan on 07/14 - pt denies any hx of liver abnormalities- cirrhosis not noted in CT in 2016 will obtain hepatitis w/u f/u w/ GI eval HTN - currently elevated will monitor and add PRN antiHTN meds as needed dvt ppx - SCD 2/2 bleeding - Advance Directives Does patient have a Living Will: No Does patient have a Durable POA for Healthcare: No
[2019-07-25] MEDS ORDERED: NA CHLORIDE 0.9% 250 ML IV SCH (06:00)
[2019-07-25 06:39] VITALS: BMI 28.5
[2019-07-25 06:45] LABS: RBC Red Blood Cell Count 4.47 M/uL (3.86-4.86)
[2019-07-25 07:24] LABS: Ferritin 24.6 ng/mL (8-388); Thyroid Stimulating Hormone 1.03 uIU/mL (0.360-3.740)
[2019-07-25] MEDS: METRONIDAZOLE 500mg IVPB 500 MG/100 ML BAG IV SCH ×2 (07:39→16:04)
[2019-07-25] MEDS: NA CHLORIDE 0.9% 1,000 ML IV SCH ×2 (07:39→16:00)
--- NOTE | 2019-07-25 10:01 | RAD REPORT ---
EXAM DESCRIPTION: CT - Abdomen Pelvis W Contrast - 07/25/2019 7:02 am CLINICAL HISTORY: 78-year-old female with rectal bleeding TECHNIQUE: Axial CT imaging of the abdomen and pelvis was performed following the administration of intravenous contrast.. Sagittal and coronal reconstructed images were then performed. The CT stud y is performed according to ALARA (as low as reasonably achievable) or ALARA/IMAGE GENTLY, with autom atic adjustment of mA and/or kV according to patient size. Performed on: 07/25/2019 at 5:53 AM. COMPARISON: Prior CT angiogram of the aorta performed on 07/14/2019 FINDINGS: Lung bases: The lung bases are clear. There is minimal bibasilar atelectasis and/or fibros is. Liver: The liver is top normal in size. No focal hepatic abnormalities are identified. There is a mil dly nodular contour of the liver which could indicate underlying cirrhosis. Liver attenuation is with in normal limits. Spleen: The spleen is top normal in size. No focal splenic abnormalities are identified. There are pr ominent splenorenal varices. Gallbladder and bile duct: The gallbladder is surgically absent. There is a dilated common bile fausto t which is likely physiologic in nature following a cholecystectomy. Pancreas: The pancreas is grossly normal in size and configuration. Adrenal Glands: The adrenal glands are normal in size and configuration. Kidneys: The kidneys are normal in size and configuration. There is no evidence of hydronephrosis. Th ere is no evidence of nephrolithiasis. No definite solid or cystic renal mass lesions are identified. Stomach: The stomach is grossly normal. There is no definite hiatal hernia. Bowel: The bowel gas pattern is non specific and non obstructive. Again demonstrated is colonic diver ticulosis. No definite acute diverticulitis is appreciated. Appendix: The appendix is normal. Free air: There is no evidence of free air. Free fluid: There is no evidence of free fluid. Vasculature: There are atherosclerotic calcifications along the abdominal aorta which demonstrates mi ld tortuosity. The inferior vena cava is grossly unremarkable. Lymphadenopathy: No pathologic lymphadenopathy is identified. Bladder: The bladder is well distended and smooth in contour. There are mildly prominent varices martín g the anterior surface of the bladder. Reproductive: The uterus is surgically absent. Bones: No acute osseous abnormalities are identified. There is a chronic moderate to severe compressi on fracture of T11. There are degenerative changes throughout the visualized thoracolumbar spine. Soft tissues: There are fat-containing bilateral inguinal hernias as noted previously. IMPRESSION: 1. Colonic diverticulosis without definite acute diverticulitis. 2. No evidence of bowel obstruction. 3. Borderline hepatosplenomegaly. There are prominent splenorenal varices in the left upper quadrant. Nodular contour of the liver which could indicate underlying cirrhosis. 4. Remote cholecystectomy and hysterectomy. There is dilatation of the common bile duct likely physio logic in nature following cholecystectomy. 5. There are mildly prominent varices along the anterior surface of the bladder. 6. Grossly stable bilateral fat-containing inguinal hernias. Electronically signed by: Sagrario Leger DO 07/25/2019 6:31 AM COMPUTER PROGRAMMING SUPERVISOR Due to temporary technical issues with the PACS/Fluency reporting system, reports are being signed by the in house radiologist as a courtesy to ensure prompt reporting. The interpreting radiologist is f ully responsible for the content of the report.
[2019-07-25] MEDS ORDERED: NA CHLORIDE 0.9% 500 ML IV ONE (11:42)
[2019-07-25] MEDS: MORPHINE 2 MG/ML SYR IV PRN (19:35)
[2019-07-26] MEDS: METRONIDAZOLE 500mg IVPB 500 MG/100 ML BAG IV SCH ×3 (01:33→16:54)
[2019-07-26] MEDS: NA CHLORIDE 0.9% 1,000 ML IV SCH ×4 (01:33→21:03)
[2019-07-26 06:06] LABS: Protime INR 1.33
[2019-07-26 06:30] LABS: Absolute Lymphocytes (CBC) 1.8 K/uL (0.7-4.9); Basophils % 0.3 % (0-1.3); Hematocrit 32.5 % (36.0-45.0); Lymphocytes % 38.1 % (15.3-44.8); MPV 10.9 fL (7.6-11.3); RBC Red Blood Cell Count 3.54 M/uL (3.86-4.86)
[2019-07-26 07:36] LABS: Albumin 2.5 g/dL (3.4-5.0); Bilirubin Total 0.5 mg/dL (0.2-1.0); Ferritin 21.4 ng/mL (8-388); Potassium 3.9 mmol/L (3.5-5.1); Protein, Total 5.6 g/dL (6.4-8.2)
[2019-07-26 09:31] LABS: Hematocrit 32.4 % (36.0-45.0)
[2019-07-26] MEDS: MORPHINE 2 MG/ML SYR IV PRN (10:11)
[2019-07-26] MEDS ORDERED: GOLYTELY 4000 ML PO SCH ×2 (10:44→11:00)
[2019-07-26] MEDS ORDERED: ONDANSETRON 4 MG/2 ML VIAL IV ONE (13:18)
--- NOTE | 2019-07-26 14:09 | CON ---
Reason For Consultation: Lower GI bleed. History Of Presenting Illness: The patient is a 78-year-old woman with past medical history of hyper tension, came to the ER with rectal bleeding. She does have a history of rectal bleeding in 2018, wh en she was transferred to [facility], but unclear what the colonoscopy had shown. Due to that, there w as some polyps also removed. Imaging had revealed evidence of cirrhosis. GI consultation was reques derian. The patient denies any history of any liver disease, that was known. Did have some dizziness, but no syncope during last episode of bleeding, but she had 6 bowel movements with blood and after th at, none further. Allergies: NO KNOWN DRUG ALLERGIES. Home Medications: As in the chart. Past Medical History: Hypertension. Past Surgical History: History of hysterectomy, cholecystectomy, bladder surgery. Family History: Noncontributory. Social History: Denies toxic habits. No history of alcohol use. Review of Systems: GI: As in HPI. Otherwise, negative. Remainder of 10-point review of systems is negative. Physical Examination: HEENT: Head is atraumatic, normocephalic. Pupils equally reactive. Neck: Supple. Chest: Clear to auscultation bilaterally. Abdomen: Soft, nontender, nondistended. Bowel sounds present. Extremities: No pedal edema. Laboratory Data: Reviewed. Hemoglobin of around 12.6, platelets of 127. INR 1.2. Chemistry panel revealed mild elevation of AST. Imaging Data: Reviewed. As mentioned above, evidence of cirrhosis and multiple varices in various p arts of the abdomen, diverticulosis. Impression: A 78-year-old woman with several episodes of bright red bleeding per rectum. Given the presentation may be related to diverticular bleed as such they wound anticipate the hemoglobin to mc p further; however, she seems to have stopped bleeding at this time, which we will continue to monito r. Additionally, evidence of cirrhosis. The differential is broad including nonalcoholic steatohepa titis, viral hepatitis with autoimmune liver disease. Plan: Continue current management. We will start her on clear liquid diet, advance as tolerated. M onitor H and H. Obtain her record of last colonoscopy from 2018. There is no persistent drop in H a nd H. The patient probably will be able to be discharged and follow up with GI as an outpatient for this at which time we will follow up with on the labs for the liver workup that has been requested. However, there is recurrence of the skin bleeding, may need inpatient workup. US/MODL Voice ID: [id number] Report ID: [id number]
--- NOTE | 2019-07-26 14:29 | P.PN ---
Subjective Date of Service: 07/26/19 Large BM this morning with bright red blood. Total of 8 episodes of significant hematochezia. Family at bedside. Physical Examination - Vital Signs Temperature: 97.7 F Blood Pressure: 156/70 Pulse: 87 Respirations: 16 Pulse Ox (%): 95 - Physical Exam General: Alert, In no apparent distress, Other (weak) HEENT: Atraumatic, PERRLA, EOMI Neck: Supple, JVD not distended Respiratory: Clear to auscultation bilaterally, Normal air movement Cardiovascular: Regular rate/rhythm, Normal S1 S2 Gastrointestinal: Normal bowel sounds, Tenderness Musculoskeletal: No tenderness Integumentary: No rashes Neurological: Normal speech, Normal tone, Normal affect Lymphatics: No axilla or inguinal lymphadenopathy Assessment And Plan - Plan 78 yoF admitted w/ #Hematochezia - total of 8 episodes. Likely diverticular bleed. rule out other etiologies. -Bleeding continues, dw GI. Plan for EGD and colonscopy today. Will keep npo. golytely ordered. -continue telemonitoring -H&H trending down, will continue serial monitoring and transfuse prbc if hgb<8 or if HD unstable. -prior h/o GI bleedin. -on abx empirically #Acute on chronic anemia - due to acute blood loss anemia -type and screen -close monting. #Mild cirrhosis - per CT scan on 07/14 - pt denies any hx of liver abnormalities - cirrhosis not noted in CT in 2016 -Thorough evaluation per GI on going. Planned for EGD today as well. -Thrombocytopenia. -Monitor for stigmata of disease. #HTN- currently elevated; hold long acting antihypertension will monitor and utilize PRN antiHTN meds dvt ppx - SCD 2/2 bleeding
[2019-07-26] MEDS ORDERED: Ringers Lactate 1,000 ML IV ONE (15:04)
[2019-07-26] MEDS ORDERED: EPINEPHRINE/PF 1 MG/ML AMP ONE (15:04)
[2019-07-26] MEDS ORDERED: propofoL 200 MG/20 ML VIAL IV ONE (15:07)
[2019-07-26] MEDS ORDERED: LIDOCAINE 1% MPF 2 ML AMPULE ONE (15:08)
[2019-07-26] MEDS ORDERED: SODIUM CHLORIDE 0.9% 10ML INJ IV PRN (16:27)
[2019-07-26] MEDS: PANTOPRAZOLE 40 MG INJ IVP SCH ×2 (16:56→21:00)
[2019-07-26] MEDS ORDERED: CIPROFLOXACIN 400mg IV 400 MG/200 ML BAG IV SCH (21:00)
[2019-07-27] MEDS: METRONIDAZOLE 500mg IVPB 500 MG/100 ML BAG IV SCH (00:17)
[2019-07-27 01:02] VITALS: O2SAT 94
--- NOTE | 2019-07-27 02:18 | OP ---
Surgeon: Chencho Geller MD Procedure Performed: Esophagogastroduodenoscopy and colonoscopy. Indication For Procedure: GI bleed. Plan For Anesthesia: Monitored anesthesia care. Complexity: High due to nature of the procedure. Technique: After obtaining informed consent from the patient and explaining risks and complications which include, but are not limited to bleeding, infection, perforation, anesthesia complications, pat ient was placed in a left lateral position. Sedation was given and endoscopy was performed. Scope w as inserted into the mouth and carefully guided up until the second portion of the duodenum. No evid ence of active bleeding was seen. Then the scope was gradually withdrawn while carefully examining t he mucosa. Findings: Esophagus: No gross lesions seen in the esophagus, small hiatal hernia. Stomach: Mild patchy erythema seen. A small angiodysplasia was seen. This was ablated. Duodenum: Duodenum was normal. Subsequently the patient was turned and colonoscopy was performed. The exam revealed fresh blood in the rectum. Scope was inserted into the rectum and carefully was guided up until the terminal ilium. Subsequently scope withdrawal while carefully examining the colon as much as possible. Scope withd sandro time was 12 minutes initially and then 7 minutes in the subsequent reinsertion. Quality of pre p was inadequate. This was due to presence of fresh blood and clots in the whole length of the colon . Findings: In the terminal ileum, no fresh blood was seen. Altered blood and clots were seen in the whole colon, but primarily on the left side, several polyps were seen scattered throughout the colon, but were not removed. A lipoma was also seen in the ascending colon. In regard to the bleeding, we washed and suctioned blood off the borders starting from the cecum and proceeding distally up until we reached the rectum. Numerous small to medium-sized diverticula were seen in the whole colon, but most of them were concentrated in the sigmoid and descending. I could not make out if there was any active bleeding from 1 particular diverticula, however, after the first pass I reinserted the scope t o reach to the cecum again, this time around there did not seem to be any collection or pooling of ne w blood, but it was difficult to evaluate given the numerous diverticula. I suspect the bleeding is coming from either the sigmoid or the descending colon diverticula. Retroflexion revealed grade 1 to 2 internal hemorrhoids. No significant lesion was found in the rectum. Complications: None. Tolerance To Anesthesia: Excellent. Postoperative Diagnosis: For the endoscopy; small hiatal hernia, gastritis, gastric AVM status post ablation. For the colon; numerous diverticula likely source of bleeding, colonic polyps, colon lipoma. Plan: Await pathology result, PPI. In regard to the diverticular bleed I did have a brief discussio n with General Surgery. The next step would be interventional radiology for possible IR embolization , however, it is difficult to evaluate if there is ongoing bleeding right now. If her hemoglobin con tinues to drop or there appears to be continuation of the bleeding, she would immediately need to be transferred to a higher level of care. If not, we can still initiate the process right now as we wou ld not want to delay in case of further bleeding or even if the bleeding has been consistent. /BILLIE Voice ID: [id number] Report ID: [id number]
[2019-07-27 02:19] VITALS: BP 139/60; TEMP 97.3
[2019-07-31 19:44] LABS: HBsAG Nonreactive (Nonreactive)
[2019-07-31 20:37] LABS: Alpha Fetoprotein-Tumor Marker 2.4 ng/mL (<6.1)
== END 2019-07-27 01:45 | disposition short-term general hospital (02) | DRG 378 ==
LOC: ER 02:34 → 4TH 06:10
PROVIDERS: ADMIT Internal Medicine; ATTEND Internal Medicine
PROC: 0DJD8ZZ Inspection of Lower Intestinal Tract, Via Natural or Artificial Opening Endoscopic (ICD-10-PCS; principal; 2019-07-26 15:00)
PROC: 0DB68ZX Excision of Stomach, Via Natural or Artificial Opening Endoscopic, Diagnostic (ICD-10-PCS; 2019-07-26 15:00)
DX: K57.31 Diverticulosis of large intestine without perforation or abscess with bleeding (principal); D62 Acute posthemorrhagic anemia; Q27.39 Arteriovenous malformation, other site; K31.811 Angiodysplasia of stomach and duodenum with bleeding; K29.71 Gastritis, unspecified, with bleeding; K92.1 Melena; K74.60 Unspecified cirrhosis of liver; I10 Essential (primary) hypertension; K44.9 Diaphragmatic hernia without obstruction or gangrene; K63.5 Polyp of colon; D17.79 Benign lipomatous neoplasm of other sites; K64.8 Other hemorrhoids
CPT/HCPCS: 36415; 74177; 80048; 80053; 80061; 80074; 80076; 82103; 82105; 82390; 82607; 82728; 82747; 83010; 83036; 83540; 83615; 83690; 83735; 84443; 84466; 85014; 85018; 85025; 85044; 85610; 85730; 86038; 86255; 86850; 86900; 86901; 88305; 88312; 99285; C9113; J0171; J0744; J2001; J2270; J2405; J2704; J7030; J7040; J7120; Q9967

== ENCOUNTER 2021-03-23 22:46 | Emergency (ER) | payer OTHER ==
[2021-03-24] MEDS ORDERED: AMLODIPINE 10 MG TAB ONE (00:22)
[2021-03-24] MEDS ORDERED: LOSARTAN POTASSIUM 50 MG TABLET ONE (00:22)
[2021-03-24 01:09] LABS: Absolute Lymphocytes (CBC) 1.7 K/uL (0.7-4.9); Basophils % 1.1 % (0-1.3); Hematocrit 35.1 % (36.0-45.0); Lymphocytes % 35.3 % (15.3-44.8); MPV 9.7 fL (7.6-11.3); Protime INR 1.26; RBC Red Blood Cell Count 3.97 M/uL (3.86-4.86)
[2021-03-24 01:26] LABS: ALT/SGPT 24 U/L (12-78); AST/SGOT 36 U/L (15-37); Albumin 2.7 g/dL (3.4-5.0); Alkaline Phosphatase 165 U/L (45-117); BUN Blood Urea Nitrogen 11 mg/dL (7-18); Bicarbonate 28 mmol/L (21-32); Bilirubin Direct 0.2 mg/dL (0-0.2); Bilirubin Total 0.5 mg/dL (0.2-1.0); Glucose Level 114 mg/dL (74-106); Magnesium 2.2 mg/dL (1.8-2.4); NT PRO-BNP 331 pg/mL (<450); Potassium 3.9 mmol/L (3.5-5.1); Protein, Total 7.4 g/dL (6.4-8.2); Sodium Level 145 mmol/L (136-145); Troponin (Emerg Dept Use Only) < 0.02 ng/mL (0.0-0.045)
--- NOTE | 2021-03-24 01:51 | ER ---
Nurse's Notes [facility] Name: Mackenzie Cutler Age: 80 yrs Sex: Female : 1940 Arrival Date: 03/23/2021 Time: 23:02 Bed 27 Private MD: Diagnosis: Essential (primary) hypertension Presentation: 03/23 22:45 Coronavirus screen: Vaccine status: Patient reports receiving the 2nd dose of the covid cc4 vaccine. Date October 01, 2020 Client denies travel out of the [place] in the last 14 days. The client reports previous COVID testing was negative. Date of collection: March 03, 2021. 22:45 Method Of Arrival: EMS cc4 22:45 Acuity: KAREN 4 cc4 22:45 Ebola Screen: Patient negative for fever greater than or equal to 101.5 degrees cc4 Fahrenheit, and additional compatible Ebola Virus Disease symptoms. Initial Sepsis Screen: Does the patient meet any 2 criteria? No. Patient's initial sepsis screen is negative. Risk Assessment: Do you want to hurt yourself or someone else? Patient reports no desire to harm self or others. Onset of symptoms was March 23, 2021. 22:45 Chief complaint: Patient states: States, "my granddaughter sent me here for my blood cc4 pressure"; reports having had surgery of left hip fracture 3 weeks ago; small amount edema noted left lower leg; hpertensive. 03/24 02:00 Initial Sepsis Screen: Does the patient have a suspected source of infection?. Initial dc2 Sepsis Screen: Does the patient have a suspected source of infection? No. Patient's initial sepsis screen is negative. Triage Assessment: 03/23 23:21 General: Appears in no apparent distress. General: Behavior is calm, cooperative. Pain: cc4 Denies pain. Neuro: No deficits noted. Level of Consciousness is awake, alert, obeys commands, Oriented to person, place, time, situation. - Immunization history:: Adult Immunizations up to date, Client reports receiving the 2nd dose of the Covid vaccine, Pneumococcal vaccine is up to date. - Social history:: Patient/guardian denies using alcohol, street drugs, Smoking status: unknown. - Family history:: not pertinent. Screenin:45 Abuse screen: Denies threats or abuse. cc4 22:45 Nutritional screening: No deficits noted. Tuberculosis screening: No symptoms or risk cc4 factors identified. Fall Risk Fall in past 12 months (25 points). Assessment: 03/24 00:30 Reassessment: #22 Gauge IV inserted to Left AC. Pt tolerate well. Labs drawn and sent dc2 to lab at this time. VSS. 01:50 Reassessment: Patient appears in no apparent distress at this time. Patient states cc4 feeling better. Patient states symptoms have improved. Vital Signs: 03/23 22:45 BP 200 / 97; Pulse 90; Resp 16; Temp 98.4; Pulse Ox 95% on R/A; cc4 22:45 BP 200 / 97; Pulse 90; Resp 16; Temp 98.4(O); Pulse Ox 95% on R/A; cc4 03/24 00:00 BP 192 / 85; Pulse 88; Resp 20; Pulse Ox 100% on R/A; cc4 01:50 BP 158 / 70; Pulse 84; Resp 20; Temp 98.7(O); cc4 ED Course: 03/23 22:45 Arm band placed on. cc4 22:45 Patient has correct armband on for positive identification. Side rails up X2. Adult w/ cc4 patient. enterprise solutions architect on. Pulse ox on. NIBP on. 23:02 Patient arrived in ED. mw2 23:02 Filomena Green is Primary Nurse. cc4 23:14 Hawk Alberts MD is Attending Physician. dariel 23:21 Triage completed. cc4 23:43 X-ray completed. Portable x-ray completed in exam room. md1 23:46 XRAY Chest (1 view) In Process Unspecified. EDMS 03/24 00:30 Inserted saline lock: 22 gauge in left antecubital area, using aseptic technique. Blood dc2 collected. 01:37 Basic Metabolic Panel Sent. dc2 01:38 CBC with Diff Sent. dc2 01:38 LFT's Sent. dc2 01:50 Dominick Giron MD is Referral Physician. dariel 02:00 No provider procedures requiring assistance completed. IV discontinued, intact, dc2 bleeding controlled, No redness/swelling at site. Pressure dressing applied. Administered Medications: 03/23 23:53 Drug: Norvasc (amlodipine) 10 mg Route: PO; cc4 03/24 03:19 Follow up: Response: No adverse reaction; Blood pressure is lowered [facility] 03/23 23:53 Drug: Losartan 50 mg Route: PO; 4 03/24 03:19 Follow up: Response: No adverse reaction; Blood pressure is lowered [facility] Outcome: 03/23 22:45 Condition: stable [facility] 03/24 01:50 Discharge ordered by . dariel 02:00 Discharged to home via wheelchair. dc2 02:00 Condition: stable 02:00 Discharge instructions given to patient, family. 02:50 Patient left the ED. 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 [facility]
--- NOTE | 2021-03-24 01:51 | EDPHYS ---
Physician Documentation [facility] Name: Mackenzie Cutler Age: 80 yrs Sex: Female : 1940 Arrival Date: 03/23/2021 Time: 23:02 Bed 27 Private MD: ED Physician Hawk Alberts HPI: 03/24 00:06 This 80 yrs old Female presents to ER via EMS with complaints of high bloood dariel pressure. 00:06 no cp, no sob , no symptoms. Onset: The symptoms/episode began/occurred 2 day(s) ago. dariel Severity of symptoms: At their worst the symptoms were mild in the emergency department the symptoms are unchanged. The patient has experienced similar episodes in the past, a few times. - Immunization history:: Adult Immunizations up to date, Client reports receiving the 2nd dose of the Covid vaccine, Pneumococcal vaccine is up to date. - Social history:: Patient/guardian denies using alcohol, street drugs, Smoking status: unknown. - Family history:: not pertinent. ROS: 00:06 Constitutional: Negative for fever, chills, and weight loss, Eyes: Negative for injury, dariel pain, redness, and discharge, ENT: Negative for injury, pain, and discharge, Neck: Negative for injury, pain, and swelling, Cardiovascular: Negative for chest pain, palpitations, and edema, Respiratory: Negative for shortness of breath, cough, wheezing, and pleuritic chest pain, Abdomen/GI: Negative for abdominal pain, nausea, vomiting, diarrhea, and constipation, Back: Negative for injury and pain, : Negative for injury, bleeding, discharge, and swelling, MS/Extremity: Negative for injury and deformity, Skin: Negative for injury, rash, and discoloration, Neuro: Negative for headache, weakness, numbness, tingling, and seizure, Psych: Negative for depression, anxiety, suicide ideation, homicidal ideation, and hallucinations, Allergy/Immunology: Negative for hives, rash, and allergies, Endocrine: Negative for neck swelling, polydipsia, polyuria, polyphagia, and marked weight changes, Hematologic/Lymphatic: Negative for swollen nodes, abnormal bleeding, and unusual bruising. Exam: 00:06 Constitutional: This is a well developed, well nourished patient who is awake, alert, dariel and in no acute distress. Head/Face: Normocephalic, atraumatic. Eyes: Pupils equal round and reactive to light, extra-ocular motions intact. Lids and lashes normal. Conjunctiva and sclera are non-icteric and not injected. Cornea within normal limits. Periorbital areas with no swelling, redness, or edema. ENT: Nares patent. No nasal discharge, no septal abnormalities noted. Tympanic membranes are normal and external auditory canals are clear. Oropharynx with no redness, swelling, or masses, exudates, or evidence of obstruction, uvula midline. Mucous membranes moist. Neck: Trachea midline, no thyromegaly or masses palpated, and no cervical lymphadenopathy. Supple, full range of motion without nuchal rigidity, or vertebral point tenderness. No Meningismus. Chest/axilla: Normal chest wall appearance and motion. Nontender with no deformity. No lesions are appreciated. Cardiovascular: Regular rate and rhythm with a normal S1 and S2. No gallops, murmurs, or rubs. Normal PMI, no JVD. No pulse deficits. Respiratory: Lungs have equal breath sounds bilaterally, clear to auscultation and percussion. No rales, rhonchi or wheezes noted. No increased work of breathing, no retractions or nasal flaring. Abdomen/GI: Soft, non-tender, with normal bowel sounds. No distension or tympany. No guarding or rebound. No evidence of tenderness throughout. Back: No spinal tenderness. No costovertebral tenderness. Full range of motion. Female : Normal external genitalia. Skin: Warm, dry with normal turgor. Normal color with no rashes, no lesions, and no evidence of cellulitis. MS/ Extremity: Pulses equal, no cyanosis. Neurovascular intact. Full, normal range of motion. Neuro: Awake and alert, GCS 15, oriented to person, place, time, and situation. Cranial nerves II-XII grossly intact. Motor strength 5/5 in all extremities. Sensory grossly intact. Cerebellar exam normal. Normal gait. Psych: Awake, alert, with orientation to person, place and time. Behavior, mood, and affect are within normal limits. 00:16 ECG was reviewed by the Attending Physician. [facility] Vital Signs: 03/23 22:45 BP 200 / 97; Pulse 90; Resp 16; Temp 98.4; Pulse Ox 95% on R/A; cc4 22:45 BP 200 / 97; Pulse 90; Resp 16; Temp 98.4(O); Pulse Ox 95% on R/A; cc4 03/24 00:00 BP 192 / 85; Pulse 88; Resp 20; Pulse Ox 100% on R/A; cc4 01:50 BP 158 / 70; Pulse 84; Resp 20; Temp 98.7(O); cc4 MDM: 03/23 23:14 Patient medically screened. [facility] 03/24 00:08 Data reviewed: vital signs, nurses notes, lab test result(s), EKG, radiologic studies, dariel plain films. Data interpreted: threat monitoring analyst: rate is 90 beats/min, rhythm is regular, Pulse oximetry: on room air is 95 %. Test interpretation: by ED physician or midlevel provider: ECG, plain radiologic studies. Counseling: I had a detailed discussion with the patient and/or guardian regarding: the historical points, exam findings, and any diagnostic results supporting the discharge/admit diagnosis, lab results, radiology results, the need for further work-up and treatment in the hospital. 03/23 23:16 Order name: Basic Metabolic Panel [facility] 03/23 23:16 Order name: CBC with Diff [facility] 03/23 23:16 Order name: LFT's [facility] 03/23 23:16 Order name: Magnesium; Complete Time: 01:50 [facility] 03/23 23:16 Order name: NT PRO-BNP; Complete Time: 01:50 [facility] 03/23 23:16 Order name: PT-INR; Complete Time: 01:50 [facility] 03/23 23:16 Order name: Troponin (emerg Dept Use Only); Complete Time: 01:50 [facility] 03/23 23:16 Order name: XRAY Chest (1 view) [facility] 03/23 23:16 Order name: EKG; Complete Time: 23:17 [facility] 03/23 23:17 Order name: Basic Metabolic Panel; Complete Time: 01:50 [facility] 03/23 23:17 Order name: CBC with Automated Diff; Complete Time: 01:50 [facility] 03/23 23:17 Order name: Liver (Hepatic) Function; Complete Time: 01:50 [facility] 03/23 23:16 Order name: Cardiac monitoring [facility] 03/23 23:16 Order name: EKG - Nurse/Tech; Complete Time: 01:37 [facility] 03/23 23:16 Order name: IV Saline Lock; Complete Time: 01:37 [facility] 03/23 23:16 Order name: Labs collected and sent; Complete Time: : [facility] 03/23 23:16 Order name: O2 Per Protocol; Complete Time: [facility] 03/23 23:16 Order name: O2 Sat Monitoring; Complete Time: : [facility] EC:16 Rate is 86 beats/min. Rhythm is regular. QRS [place] is Normal. [place] interval is normal. QRS dariel interval is normal. QT interval is normal. No Q waves. T waves are Normal. No ST changes noted. Clinical impression: NSR w/ Non-specific ST/T Changes and No evidence of ischemia. Interpreted by me. Reviewed by me. Administered Medications: 03/23 23:53 Drug: Norvasc (amlodipine) 10 mg Route: PO; cc4 03/24 03:19 Follow up: Response: No adverse reaction; Blood pressure is lowered cc4 03/23 23:53 Drug: Losartan 50 mg Route: PO; cc4 03/24 03:19 Follow up: Response: No adverse reaction; Blood pressure is lowered cc4 Disposition Summary: 03/24/21 01:50 Discharge Ordered Location: Home dariel Problem: new dariel Symptoms: have improved dariel Condition: Stable dariel Diagnosis - Essential (primary) hypertension dariel Followup: dariel - With: Private Physician - When: 2 - 3 days - Reason: Recheck today's complaints, Continuance of care, Re-evaluation by your physician Followup: dariel - With: - When: 2 - 3 days - Reason: Recheck today's complaints, Re-evaluation by your physician Discharge Instructions: - Discharge Summary Sheet darile - Hypertension, Adult dariel - Hypertension, Adult, [id number] dariel - How to Take Your Blood Pressure, [id number] dariel - Aspirin and Your Heart dariel - Managing Your Hypertension dariel Forms: - Medication Reconciliation Form dariel - Thank You Letter dariel - Antibiotic Education dariel - Prescription Opioid Use dariel Prescriptions: - losartan 50 mg Oral tablet - take 1 tablet by ORAL route once daily; 30 tablet; Refills: 0, Product dariel Selection Permitted - Norvasc 5 mg Oral Tablet - take 1 tablet by ORAL route once daily; 20 tablet; Refills: 0, Product dariel Selection Permitted Signatures: Dispatcher [employer] Hawk Ivy MD MD cha Cooper, Christie cc4 Allison Bauer, RN RN dc2 Corrections: (The following items were deleted from the chart) 03/23 23:16 22:45 PMHx: Hypertension; cc4 cc4 22:45 PMHx: Osteoporosis; cc4 cc4
[2021-03-24 04:34] VITALS: BP 192/85; O2SAT 100
--- NOTE | 2021-03-24 08:39 | RAD REPORT ---
EXAM DESCRIPTION: RAD - Chest Single View - 03/23/2021 11:46 pm CLINICAL HISTORY: CHEST PAIN Chest pain. COMPARISON: Chest Single View dated 07/14/2019; Chest Single View dated 08/22/2017 FINDINGS: Portable technique limits examination quality. Mild interstitial pulmonary edema seen. The heart is moderately enlarged in size with a tortuous thor acic aorta. No displaced fractures. IMPRESSION: Mild CHF.
--- NOTE | 2021-03-24 12:42 | EKG ---
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
== END 2021-03-24 02:50 | disposition home or self-care (01) ==
LOC: ER 22:46
DX: I10 Essential (primary) hypertension (principal)
CPT/HCPCS: 36415; 71045; 80048; 80076; 83735; 83880; 84484; 85025; 85610; 93005; 99284

== ENCOUNTER 2021-06-15 15:03 | Inpatient (IN) | payer OTHER ==
--- OUTSIDE RECORDS SUMMARY | 2021-06-15 15:08 | XMS REPORT | Continuity of Care Document ---
:1940 Author Organization [facility] t Address [address] [place] [address] Care Team Providers Name Role Phone Veronica Pruitt Primary Care Physician James Merchant MD Attending Clinician Gogo GOLDMAN Attending Clinician Unavailable Susi DAVIS, S Attending Clinician COLT ALBA Attending Clinician Unavailable Delia BURT Attending Clinician Unavailable GREG Admitting Clinician Unavailable Delia BURT Admitting Clinician Unavailable Payers Payer Name Policy Type Policy Number Effective Date Expiration Date S ource Problems Condition Condition Condition Status Onset Resolution Last Treating Co mments Source Name Details Category Date Date Treatment Clinician Date Dizziness Dizziness Disease Active Uni vers 8-16 ity of 00:00: [address] Essential Essential Disease Active Uni vers hypertensi hypertensi 8-16 it y of on on 00:00: [address] UTI UTI Disease Active Univers (urinary (urinary 8-16 ity of tract tract 00:00: [place] infection) infection) 00 Me dical Branch Closed Closed Disease Active Univers left hip left hip 8-15 ity of fracture, fracture, 00:00: [place] initial initial 00 Medical encounter encounter Chacorta cardoza Allergies, Adverse Reactions, Alerts Allergy Allergy Status Severity Reaction(s) Onset Inactive Treating Comm ents Source Name Type Date Date Clinician NO KNOWN Drug Active Univers ALLERGIE Class ity of S [facility] NO KNOWN Allergy Active [facility] ALLERGCONRAD S Social History Social Habit Start Date Stop Date Quantity Comments Source Exposure to Not sure [facility]-CoV-2 [facility] (event) Branch Alcohol intake 2021-04-05 2021-04-[address] [facility] 00:00:00 00:00:00 (finding) [facility] Tobacco use and 2021-02-14 2021-02-14 Never used Universit y of exposure 00:00:00 00:00:00 [facility] Sex Assigned At [birth year] Universit y of 00:00:00 00:00:00 [facility] Smoking Status Start Date Stop Date Source Never smoker [facility] Medications Ordered Filled Start Stop Current Ordering Indication Dosage Frequency Signature Comments Components Source Medication Medication Date Date Medication? Clinician (SIG) Name Name memantine Yes 10mg Take 10 mg Un deborah 10 mg 8-18 by mouth 2 ity of tablet 18:23: (two) [place] [id number] times Medical daily. Branch losartan 50 Yes 50mg Take 50 mg Univers mg tablet 8-18 by mouth ity of 18:23: daily. [address] PARoxetine Yes 10mg Take 10 mg U nivers 10 mg 8-18 by mouth ity of tablet 18:23: daily. [address] memantine Yes 10mg Take 10 mg Un deborah 10 mg 8-18 by mouth 2 ity of tablet 18:23: (two) [address] Medical daily. Branch losartan 50 Yes 50mg Take 50 mg Univers mg tablet 8-18 by mouth ity of 18:23: daily. [address] PARoxetine Yes 10mg Take 10 mg U nivers 10 mg 8-18 by mouth ity of tablet 18:23: daily. [address] memantine Yes 10mg Take 10 mg Un deborah 10 mg 8-18 by mouth 2 ity of tablet 18:23: (two) [address] Medical daily. Branch losartan 50 Yes 50mg Take 50 mg Univers mg tablet 8-18 by mouth ity of 18:23: daily. [address] PARoxetine Yes 10mg Take 10 mg U nivers 10 mg 8-18 by mouth ity of tablet 18:23: daily. [address] Vital Signs Vital Name Observation Time Observation Value Comments Source Body height 2021-04-05 19:30:00 160 cm [facility] Body weight 2021-04-05 19:30:00 75.751 kg [facility] BMI 2021-04-05 19:30:00 29.58 kg/m2 [facility] Procedures This patient has no known procedures. Encounters Start End Encounter Admission Attending Care Care Encounter Source Date/Time Date/Time Type Type Clinicians Facility Department ID 2021-04-19 2021-04-19 Telephone Shonda [facility] [id number] Univers 00:00:00 00:00:00 Boy Ramirez [employer] [id number] it y of [place] [id number] Forrest as Teodoro?Blea [id number] [place] eloydavid mejia [address] [place] [address] Medical Office [facility] 2021-04-05 2021-04-05 Outpatient Brea GOLDMAN [facility] [id number] Univers 16:15:00 16:15:00 MORIS [facility] 2021-04-05 2021-04-05 Office Boy Merchant [facility] [id number] Univers 14:14:04 15:04:03 Visit Moris Goldman [facility] [id number] ity of [place] [id number] Forrest as Teodoro?Blea [id number] [place] eloydavid mejia [address] [place] [address] Medical Office [facility] 2021-04-05 2021-04-05 Outpatient SUSI [facility] [id number] Univers 13:30:00 13:30:00 MORIS [id number] [facility] 2021-04-05 2021-04-05 Outpatient R SUSI [facility] [id number] Univers 13:30:00 13:30:00 MORIS [facility] 2021-04-05 2021-04-05 Telephone Shonda [facility] [id number] Univers 00:00:00 00:00:00 Boy [facility] [id number] it y of [place] [id number] Forrest as Teodoro?Blea [phone] N[place] dical kney [address] [place] [address] Building 2021-03-05 2021-03-05 Outpatient Brea GOLDMAN [facility] [id number] Univers 08:00:00 08:00:00 [facility] 2021-03-03 2021-03-03 Outpatient Brea GOLDMAN [facility] [id number] Univers 13:00:00 13:00:00 [facility] 2021-02-14 2021-02-14 Emergency X [facility] ERT [id number] Univers 15:57:00 15:57:00 [facility] 2019-09-09 2019-09-09 Outpatient [facility] [id number] [facility] 00:00:00 00:00:00 [id number] Results Test Description Test Time Test Comments Results Result Comments Source BLOOD CULTURE 2019-08-03 18:00:00 Test Item Value Reference Range Interpretation Comme nts CULTURE (BEAKER) (test code = 1095) No growth in 5 days BLOOD [id number] 18:00:00 Test Item Value Reference Range Interpretation Comments CULTURE (BEAKER) (test No growth in 5 days code = 1095) CBC W/PLT COUNT & AUTO [id number] 05:40:00 Test Item Value Reference Range Interpretation Comments WHITE BLOOD CELL COUNT (BEAKER) 4.2 K/ L 3.5-10.5 (test code = 775) RED BLOOD CELL COUNT (BEAKER) 2.74 M/ L 3.93-5.22 L (test code = 761) HEMOGLOBIN (BEAKER) (test code = 8.2 GM/DL 11.2-15.7 L 410) HEMATOCRIT (BEAKER) (test code = 25.2 % 34.1-44.9 L 411) MEAN CORPUSCULAR VOLUME (BEAKER) 92.0 fL 79.4-94.8 (test code = 753) MEAN CORPUSCULAR HEMOGLOBIN 29.9 pg 25.6-32.2 (BEAKER) (test code = 751) MEAN CORPUSCULAR HEMOGLOBIN CONC 32.5 GM/DL 32.2-35.5 (BEAKER) (test code = 752) RED CELL DISTRIBUTION WIDTH 16.8 % 11.7-14.4 H (BEAKER) (test code = 412) PLATELET COUNT (BEAKER) (test 131 K/CU MM 150-450 L code = 756) MEAN PLATELET VOLUME (BEAKER) 12.0 fL 9.4-12.3 (test code = 754) NUCLEATED RED BLOOD CELLS 0 /100 WBC 0-0 (BEAKER) (test code = 413) NEUTROPHILS RELATIVE PERCENT 47 % (BEAKER) (test code = 429) LYMPHOCYTES RELATIVE PERCENT 36 % (BEAKER) (test code = 430) MONOCYTES RELATIVE PERCENT 10 % (BEAKER) (test code = 431) EOSINOPHILS RELATIVE PERCENT 7 % (BEAKER) (test code = 432) BASOPHILS RELATIVE PERCENT 0 % (BEAKER) (test code = 437) NEUTROPHILS ABSOLUTE COUNT 1.96 K/ L 1.56-6.13 (BEAKER) (test code = 670) LYMPHOCYTES ABSOLUTE COUNT 1.50 K/ L 1.18-3.74 (BEAKER) (test code = 414) MONOCYTES ABSOLUTE COUNT (BEAKER) 0.43 K/ L 0.24-0.36 H (test code = 415) EOSINOPHILS ABSOLUTE COUNT 0.28 K/ L 0.04-0.36 (BEAKER) (test code = 416) BASOPHILS ABSOLUTE COUNT (BEAKER) 0.01 K/ L 0.01-0.08 (test code = 417) IMMATURE GRANULOCYTES-RELATIVE 0 % 0-1 PERCENT (BEAKER) (test code = 2801) RAD, CHEST, 1 VIEW, NON [id number] 13:49:00Reason for exam:->feverShould this be performed at the bedside?->YesFINAL REPORT RAD, CHEST, 1 VIEW, NON DEPT INDICATION: fever COMPARISON: February 18, 2018 FINDINGS: Portable frontal view of the chest. IMPRESSION: Support Lines: None. Lungs and pleura: Basilar subsegmental atelectasis. Trace left effusion. No pneumothorax.Heart and mediastinum: Stable contours. Additional findings: None. Signed: JR Walsh Robert MDReport Verified Date/Time: 07/30/2019 13:49:45 Reading Location: [facility] Radiology Reading Room Electronicallysigned by: DENISE WALSH on 07/30/2019 01:49 PMURINALYSIS W/ REFLEX URINE [id number] 09:47:00 Test Item Value Reference Range Interpretation Comments COLOR (BEAKER) (test code = 470) Yellow CLARITY (BEAKER) (test code = 469) Hazy SPECIFIC GRAVITY UA (BEAKER) (test 1.009 1.001-1.035 code = 468) PH UA (BEAKER) (test code = 467) 6.0 5.0-8.0 PROTEIN UA (BEAKER) (test code = Negative Negative 464) GLUCOSE UA (BEAKER) (test code = Negative Negative 365) KETONES UA (BEAKER) (test code = Negative Negative 371) BILIRUBIN UA (BEAKER) (test code = Negative Negative 462) BLOOD UA (BEAKER) (test code = Negative Negative 461) NITRITE UA (BEAKER) (test code = Negative Negative 465) LEUKOCYTE ESTERASE UA (BEAKER) Negative Negative (test code = 466) UROBILINOGEN UA (BEAKER) (test 0.2 mg/dL 0.2-1.0 code = 463) RBC UA (BEAKER) (test code = 519) 0 /HPF WBC UA (BEAKER) (test code = 520) 2 /HPF BACTERIA (BEAKER) (test code = Occasional 517) MUCUS (BEAKER) (test code = 1574) Few SQUAMOUS EPITHELIAL (BEAKER) (test 4 /HPF code = 516) SOURCE(BEAKER) (test code = 2795) Yarn Dumper ID - [auto]Yarn Dumper ID - hankHEMOGLOBIN AND [id number] 04:38:00 Test Item Value Reference Range Interpretation Comments HEMOGLOBIN (BEAKER) (test code = 7.1 GM/DL 11.2-15.7 L 410) HEMATOCRIT (BEAKER) (test code = 21.5 % 34.1-44.9 L 411) Yarn Dumper ID - [id number] W/PLT COUNT & AUTO [id number] 06:47:00 Test Item Value Reference Range Interpretation Comments WHITE BLOOD CELL COUNT (BEAKER) 5.0 K/ L 3.5-10.5 (test code = 775) RED BLOOD CELL COUNT (BEAKER) 2.31 M/ L 3.93-5.22 L (test code = 761) HEMOGLOBIN (BEAKER) (test code = 7.2 GM/DL 11.2-15.7 L 410) HEMATOCRIT (BEAKER) (test code = 22.1 % 34.1-44.9 L 411) MEAN CORPUSCULAR VOLUME (BEAKER) 95.7 fL 79.4-94.8 H (test code = 753) MEAN CORPUSCULAR HEMOGLOBIN 31.2 pg 25.6-32.2 (BEAKER) (test code = 751) MEAN CORPUSCULAR HEMOGLOBIN CONC 32.6 GM/DL 32.2-35.5 (BEAKER) (test code = 752) RED CELL DISTRIBUTION WIDTH 14.1 % 11.7-14.4 (BEAKER) (test code = 412) PLATELET COUNT (BEAKER) (test 104 K/CU MM 150-450 L code = 756) MEAN PLATELET VOLUME (BEAKER) 11.4 fL 9.4-12.3 (test code = 754) NUCLEATED RED BLOOD CELLS 0 /100 WBC 0-0 (BEAKER) (test code = 413) NEUTROPHILS RELATIVE PERCENT 44 % (BEAKER) (test code = 429) LYMPHOCYTES RELATIVE PERCENT 40 % (BEAKER) (test code = 430) MONOCYTES RELATIVE PERCENT 10 % (BEAKER) (test code = 431) EOSINOPHILS RELATIVE PERCENT 5 % (BEAKER) (test code = 432) BASOPHILS RELATIVE PERCENT 0 % (BEAKER) (test code = 437) NEUTROPHILS ABSOLUTE COUNT 2.21 K/ L 1.56-6.13 (BEAKER) (test code = 670) LYMPHOCYTES ABSOLUTE COUNT 2.00 K/ L 1.18-3.74 (BEAKER) (test code = 414) MONOCYTES ABSOLUTE COUNT (BEAKER) 0.48 K/ L 0.24-0.36 H (test code = 415) EOSINOPHILS ABSOLUTE COUNT 0.27 K/ L 0.04-0.36 (BEAKER) (test code = 416) BASOPHILS ABSOLUTE COUNT (BEAKER) 0.01 K/ L 0.01-0.08 (test code = 417) IMMATURE GRANULOCYTES-RELATIVE 0 % 0-1 PERCENT (BEAKER) (test code = 2801) HEPATIC FUNCTION [id number] 06:37:00 Test Item Value Reference Range Interpretation Comments TOTAL PROTEIN (BEAKER) (test code = 4.8 gm/dL 6.0-8.3 L 770) ALBUMIN (BEAKER) (test code = 1145) 2.4 g/dL 3.5-5.0 L BILIRUBIN TOTAL (BEAKER) (test code 0.5 mg/dL 0.2-1.2 = 377) BILIRUBIN DIRECT (BEAKER) (test 0.3 mg/dL 0.1-0.5 code = 706) ALKALINE PHOSPHATASE (BEAKER) (test 68 U/L 40-150 code = 346) AST (SGOT) (BEAKER) (test code = 28 U/L 5-34 353) ALT (SGPT) (BEAKER) (test code = 18 U/L 6-55 347) Yarn Dumper ID Jacky BENITEZ WBASIC METABOLIC [id number] 06:37:00 Test Item Value Reference Range Interpretation Comments SODIUM (BEAKER) 138 meq/L 136-145 (test code = 381) POTASSIUM (BEAKER) 3.8 meq/L 3.5-5.1 (test code = 379) CHLORIDE (BEAKER) 112 meq/L 98-107 H (test code = 382) CO2 (BEAKER) (test 25 meq/L 22-29 code = 355) BLOOD UREA NITROGEN 9 mg/dL 7-21 (BEAKER) (test code = 354) CREATININE (BEAKER) 0.72 mg/dL 0.57-1.25 (test code = 358) GLUCOSE RANDOM 98 mg/dL 70-105 (BEAKER) (test code = 652) CALCIUM (BEAKER) 8.3 mg/dL 8.4-10.2 L (test code = 697) EGFR (BEAKER) (test 78 mL/min/1.73 ESTIMA WANG GFR IS code = 1092) sq m NOT ACCURATE CREATININE CLEARANCE IN PREDICTING GLOMERULAR FILTRATION RATE . ESTIMATED GFR I S NOT APPLICABLE FOR DIALYSIS PATIEN TS. Yarn Dumper ID Jacky BENITEZ WHEPATIC FUNCTION [id number] 16:45:00 Test Item Value Reference Range Interpretation Comments TOTAL PROTEIN (BEAKER) (test code = 5.0 gm/dL 6.0-8.3 L 770) ALBUMIN (BEAKER) (test code = 1145) 2.4 g/dL 3.5-5.0 L BILIRUBIN TOTAL (BEAKER) (test code 0.4 mg/dL 0.2-1.2 = 377) BILIRUBIN DIRECT (BEAKER) (test 0.2 mg/dL 0.1-0.5 code = 706) ALKALINE PHOSPHATASE (BEAKER) (test 70 U/L 40-150 code = 346) AST (SGOT) (BEAKER) (test code = 37 U/L 5-34 H 353) ALT (SGPT) (BEAKER) (test code = 18 U/L 6-55 347) Yarn Dumper JOSE CARLOS FERNANDEZ WBASIC METABOLIC [id number] 16:45:00 Test Item Value Reference Range Interpretation Comments SODIUM (BEAKER) 139 meq/L 136-145 (test code = 381) POTASSIUM (BEAKER) 3.8 meq/L 3.5-5.1 (test code = 379) CHLORIDE (BEAKER) 113 meq/L 98-107 H (test code = 382) CO2 (BEAKER) (test 23 meq/L 22-29 code = 355) BLOOD UREA NITROGEN 10 mg/dL 7-21 (BEAKER) (test code = 354) CREATININE (BEAKER) 0.73 mg/dL 0.57-1.25 (test code = 358) GLUCOSE RANDOM 166 mg/dL 70-105 H (BEAKER) (test code = 652) CALCIUM (BEAKER) 8.4 mg/dL 8.4-10.2 (test code = 697) EGFR (BEAKER) (test 77 mL/min/1.73 ESTIMA WANG GFR IS code = 1092) sq m NOT ACCURATE CREATININE CLEARANCE IN PREDICTING GLOMERULAR FILTRATION RATE . ESTIMATED GFR I S NOT APPLICABLE FOR DIALYSIS PATIEN TS. Yarn Dumper JOSE CARLOS FERNANDEZ WCBC W/PLT COUNT & AUTO [id number] 16:21:00 Test Item Value Reference Range Interpretation Comments WHITE BLOOD CELL COUNT (BEAKER) 6.0 K/ L 3.5-10.5 (test code = 775) RED BLOOD CELL COUNT (BEAKER) 2.34 M/ L 3.93-5.22 L (test code = 761) HEMOGLOBIN (BEAKER) (test code = 7.2 GM/DL 11.2-15.7 L 410) HEMATOCRIT (BEAKER) (test code = 22.1 % 34.1-44.9 L 411) MEAN CORPUSCULAR VOLUME (BEAKER) 94.4 fL 79.4-94.8 (test code = 753) MEAN CORPUSCULAR HEMOGLOBIN 30.8 pg 25.6-32.2 (BEAKER) (test code = 751) MEAN CORPUSCULAR HEMOGLOBIN CONC 32.6 GM/DL 32.2-35.5 (BEAKER) (test code = 752) RED CELL DISTRIBUTION WIDTH 14.3 % 11.7-14.4 (BEAKER) (test code = 412) PLATELET COUNT (BEAKER) (test 114 K/CU MM 150-450 L code = 756) MEAN PLATELET VOLUME (BEAKER) 11.4 fL 9.4-12.3 (test code = 754) NUCLEATED RED BLOOD CELLS 0 /100 WBC 0-0 (BEAKER) (test code = 413) NEUTROPHILS RELATIVE PERCENT 46 % (BEAKER) (test code = 429) LYMPHOCYTES RELATIVE PERCENT 37 % (BEAKER) (test code = 430) MONOCYTES RELATIVE PERCENT 10 % (BEAKER) (test code = 431) EOSINOPHILS RELATIVE PERCENT 6 % (BEAKER) (test code = 432) BASOPHILS RELATIVE PERCENT 0 % (BEAKER) (test code = 437) NEUTROPHILS ABSOLUTE COUNT 2.75 K/ L 1.56-6.13 (BEAKER) (test code = 670) LYMPHOCYTES ABSOLUTE COUNT 2.22 K/ L 1.18-3.74 (BEAKER) (test code = 414) MONOCYTES ABSOLUTE COUNT (BEAKER) 0.61 K/ L 0.24-0.36 H (test code = 415) EOSINOPHILS ABSOLUTE COUNT 0.35 K/ L 0.04-0.36 (BEAKER) (test code = 416) BASOPHILS ABSOLUTE COUNT (BEAKER) 0.01 K/ L 0.01-0.08 (test code = 417) IMMATURE GRANULOCYTES-RELATIVE 1 % 0-1 PERCENT (BEAKER) (test code = 2801) HEMOGLOBIN AND [id number] 19:00:00 Test Item Value Reference Range Interpretation Comments HEMOGLOBIN (BEAKER) (test code = 8.5 GM/DL 11.2-15.7 L 410) HEMATOCRIT (BEAKER) (test code = 25.9 % 34.1-44.9 L 411) Yarn Dumper ID - [id number], CTA [id number] 18:32:00FINAL REPORT EXAM: CT, CTA of the abdomen and pelvis, with and without contrast CLINICAL HISTORY: GI bleed. TECHNIQUE: CTA of the abdomen and pelvis was performed with and without intravenous contrast administration utilizing a GI bleeding protocol. 2-D and 3-D reformats were obtained. This exam was performed according to our departmental dose optimization program which includes automated exposure control, adjustment of the mA and/or kV according to patient's size and/or use of iterative reconstructive technique. COMPARISON: None FINDINGS: LOWER CHEST: Mild cardiomegaly. Atheromatous changes of the descending thoracic aorta with ulcerations as well as calcified and noncalcified mural plaque. Small hiatal hernia. Mild bibasilar atelectatic changes.HEPATOBILIARY: Cirrhotic morphology of the liver. Mild hepatomegaly. Status post cholecystectomy. Mild intrahepatic biliary ductal dilatation, nonspecific cholecystectomy. Common duct measures up to 15 mm in caliber with distaltapering. Biliary ductal dilatation is nonspecific given patient age and postcholecystectomy state. No radiopaque biliary stones.PANCREAS: Within normal limits.SPLEEN: Mild splenomegaly.ADRENALS: Within normal limits.KIDNEYS/URETERS: Subcentimeter bilateral renal hypodensities too small to characterize. No hydroureteronephrosis or radiopaque stones. URINARY BLADDER: Mild diffuse mural thickening may be due to underdistention.REPRODUCTIVE ORGANS: Status post hysterectomy. No adnexal mass. BOWEL/MESENTERY: No CT evidence of active GI bleeding. Colonic diverticulosis (extensive in the sigmoid colon) without acute diverticulitis. 1.2 cm submucosal lipoma in the ascending colon. No bowel obstruction orabnormal wall thickening. Nonvisualization of the appendix. PERITONEUM/RETROPERITONEUM: No free air,free fluid or fluid collection. VESSELS: Perisplenic and paraesophageal varices, abdominal collateral vessels as well as recanalization of the paraumbilical vein in keeping with portal venous hypertension. Atheromatous changes of the aorta and branches with ulcerations as well as calcified and noncalcified mural plaque. Saccular aneurysm of the infrarenal abdominal aorta measuring approximately 1.5 x1.1 x 1.3 cm. Patent origin of the celiac artery, SMA and SAÚL. 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 LYMPH NODES: No abdominal or pelvic lymphadenopathy. SOFT TISSUES: Small fat-containing bilateral inguinal hernias.BONES: Age-indeterminate severe compression fracture deformity of T11 without paraspinal hematoma or retropulsion. Mild grade 1 anterolisthesis at L3/L4. Multilevel degenerative changes of the visualized spine. IMPRESSION: No CT evidence of activeGI bleeding. Colonic diverticulosis without acute diverticulitis. Small ascending colon submucosal lipoma. Cirrhosis and evidence of portal venous hypertension. 1.5 x 1.1 x 1.3 cm saccular infrarenal abdominal aortic aneurysm. Vascular consultation is recommended. 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 Mild diffuse mural thickening of the urinary bladder may be due to underdistention however correlate with urinalysis to exclude infection. Mild cardiomegaly. Signed: Rebeka Malhotra MDReport Verified Date/Time: 07/27/2019 18:32:58 VITAMIN B12 AND [id number] 15:39:00 Test Item Value Reference Range Interpretation Comments VITAMIN B12 (BEAKER) (test code = < pg/mL 213-816 L 774) FOLATE (BEAKER) (test code = 362) 16.1 ng/mL >=7.0 Yarn Dumper ID - KELLY [id number] 15:30:00 Test Item Value Reference Range Interpretation Comments FERRITIN (BEAKER) (test code = 361) 22 ng/mL 5-275 Yarn Dumper ID - KELLY JAH, TIBC, % SAT. (WITHOUT FERRITIN)[id number] 14:55:00 Test Item Value Reference Range Interpretation Comments IRON (BEAKER) (test code = 547) 56.0 ug/dL 40.0-160.0 TOTAL IRON BINDING CAPACITY 260 ug/dL 250-450 (BEAKER) (test code = 769) IRON % SATURATION (2) (BEAKER) 22 % 20-55 (test code = 2590) Yarn Dumper ID - KELLY MHEPATIC FUNCTION [id number] 06:41:00 Test Item Value Reference Range Interpretation Comments TOTAL PROTEIN (BEAKER) (test code = 5.0 gm/dL 6.0-8.3 L 770) ALBUMIN (BEAKER) (test code = 1145) 2.5 g/dL 3.5-5.0 L BILIRUBIN TOTAL (BEAKER) (test code 0.6 mg/dL 0.2-1.2 = 377) BILIRUBIN DIRECT (BEAKER) (test 0.3 mg/dL 0.1-0.5 code = 706) ALKALINE PHOSPHATASE (BEAKER) (test 74 U/L 40-150 code = 346) AST (SGOT) (BEAKER) (test code = 31 U/L 5-34 353) ALT (SGPT) (BEAKER) (test code = 22 U/L 6-55 347) Yarn Dumper ID - KELLY MBASIC METABOLIC [id number] 06:41:00 Test Item Value Reference Range Interpretation Comments SODIUM (BEAKER) 141 meq/L 136-145 (test code = 381) POTASSIUM (BEAKER) 3.7 meq/L 3.5-5.1 (test code = 379) CHLORIDE (BEAKER) 114 meq/L 98-107 H (test code = 382) CO2 (BEAKER) (test 23 meq/L 22-29 code = 355) BLOOD UREA NITROGEN 12 mg/dL 7-21 (BEAKER) (test code = 354) CREATININE (BEAKER) 0.74 mg/dL 0.57-1.25 (test code = 358) GLUCOSE RANDOM 117 mg/dL 70-105 H (BEAKER) (test code = 652) CALCIUM (BEAKER) 8.1 mg/dL 8.4-10.2 L (test code = 697) EGFR (BEAKER) (test 76 mL/min/1.73 ESTIMA WANG GFR IS code = 1092) sq m NOT ACCURATE CREATININE CLEARANCE IN PREDICTING GLOMERULAR FILTRATION RATE . ESTIMATED GFR I S NOT APPLICABLE FOR DIALYSIS PATIEN TS. Yarn Dumper ID Jacky MENDOZA MHEPATITIS PANEL, [id number] 06:27:00 Test Item Value Reference Range Interpretation Comments HEPATITIS A IGM ANTIBODY (BEAKER) Nonreactive Nonreactive (test code = 498) HEPATITIS B CORE IGM ANTIBODY Nonreactive Nonreactive (BEAKER) (test code = 645) HEPATITIS C ANTIBODY (BEAKER) Nonreactive Nonreactive (test code = 367) HEPATITIS B SURFACE ANTIGEN (2) Nonreactive Nonreactive (BEAKER) (test code = 2585) Yarn Dumper ID - KELLY MPROTHROMBIN [id number] 05:50:00 Test Item Value Reference Range Interpretation Comments PROTIME (BEAKER) (test code = 17.7 seconds 11.9-14.2 H 759) INR (BEAKER) (test code = 370) 1.5 <=5.9 Effective 11/28/2018: PT Reference Range ChangeNew: 11.9-14.2 Previous: 11.7- 14.7RECOMMENDED COUMADIN/WARFARIN INR THERAPY RANGESSTANDARD DOSE: 2.0-3.0 Includes: PROPHYLAXIS for venous thrombosis, systemic embolization; TREATMENT for venous thrombosis and/or pulmonary embolus.HIGH RISK: Target INR is2.5-3.5 for patients wiht mechanical heart valves.CBC W/PLT COUNT & AUTO [id number] 05:40:00 Test Item Value Reference Range Interpretation Comments WHITE BLOOD CELL COUNT (BEAKER) 5.8 K/ L 3.5-10.5 (test code = 775) RED BLOOD CELL COUNT (BEAKER) 2.77 M/ L 3.93-5.22 L (test code = 761) HEMOGLOBIN (BEAKER) (test code = 8.6 GM/DL 11.2-15.7 L 410) HEMATOCRIT (BEAKER) (test code = 26.0 % 34.1-44.9 L 411) MEAN CORPUSCULAR VOLUME (BEAKER) 93.9 fL 79.4-94.8 (test code = 753) MEAN CORPUSCULAR HEMOGLOBIN 31.0 pg 25.6-32.2 (BEAKER) (test code = 751) MEAN CORPUSCULAR HEMOGLOBIN CONC 33.1 GM/DL 32.2-35.5 (BEAKER) (test code = 752) RED CELL DISTRIBUTION WIDTH 13.8 % 11.7-14.4 (BEAKER) (test code = 412) PLATELET COUNT (BEAKER) (test 110 K/CU MM 150-450 L code = 756) MEAN PLATELET VOLUME (BEAKER) 11.8 fL 9.4-12.3 (test code = 754) NUCLEATED RED BLOOD CELLS 0 /100 WBC 0-0 (BEAKER) (test code = 413) NEUTROPHILS RELATIVE PERCENT 53 % (BEAKER) (test code = 429) LYMPHOCYTES RELATIVE PERCENT 35 % (BEAKER) (test code = 430) MONOCYTES RELATIVE PERCENT 8 % (BEAKER) (test code = 431) EOSINOPHILS RELATIVE PERCENT 4 % (BEAKER) (test code = 432) BASOPHILS RELATIVE PERCENT 0 % (BEAKER) (test code = 437) NEUTROPHILS ABSOLUTE COUNT 3.07 K/ L 1.56-6.13 (BEAKER) (test code = 670) LYMPHOCYTES ABSOLUTE COUNT 2.02 K/ L 1.18-3.74 (BEAKER) (test code = 414) MONOCYTES ABSOLUTE COUNT (BEAKER) 0.46 K/ L 0.24-0.36 H (test code = 415) EOSINOPHILS ABSOLUTE COUNT 0.24 K/ L 0.04-0.36 (BEAKER) (test code = 416) BASOPHILS ABSOLUTE COUNT (BEAKER) 0.01 K/ L 0.01-0.08 (test code = 417) IMMATURE GRANULOCYTES-RELATIVE 1 % 0-1 PERCENT (BEAKER) (test code = 2801) TISSUE [id number] 15:34:00Surgical Pathology Report Case: [id number] Authorizing Provider: Lay Elizalde MD Collected: 02/19/2018 1637 Ordering Location: [address] Received: 02/20/2018 0812 Service Pathologist: Shashank Francis MD Specimens: A) - Polyp, NOS, Appendeceal orifice polyp with hot snare and Duraclip x1 B) -Polyp, Colon - Hepatic Flexure, Hepatic flexure polyp C) - Polyp, Colon - Sigmoid, Sigmoid colon polyp with hot snare and Duraclipx1 PART A APPENDICEAL ORIFICE BIOPSY FOR 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 Signing Pathologist Direct Phone Line: [phone] signed by Shashank Francis MD on 02/20/2018 at 3:34 [id number] bleedingA. Appendiceal orifice polyp. B. Hepatic flexure [...] Specimen is entirely submitted in C1. DB/ew PERFORMED.[id number] 13:42:00 Test Item Value Reference Range Interpretation Comments FERRITIN (BEAKER) (test code = 361) 23 ng/mL 5-275 IRON, TIBC, % SAT. (WITHOUT FERRITIN)2018-02-20 13:22:00 Test Item Value Reference Range Interpretation Comments IRON (BEAKER) (test code = 547) 22 ug/dL 40-160 L TOTAL IRON BINDING CAPACITY 263 ug/dL 250-450 (BEAKER) (test code = 769) IRON % SATURATION (2) (BEAKER) 8 % 20-55 L (test code = 2590) HEMOGLOBIN AND [id number] 12:16:00 Test Item Value Reference Range Interpretation Comments HEMOGLOBIN (BEAKER) (test code = 7.3 GM/DL 11.2-15.7 L 410) HEMATOCRIT (BEAKER) (test code = 22.7 % 34.1-44.9 L 411) HEMOGLOBIN AND [id number] 04:48:00 Test Item Value Reference Range Interpretation Comments HEMOGLOBIN (BEAKER) (test code = 7.4 GM/DL 11.2-15.7 L 410) HEMATOCRIT (BEAKER) (test code = 22.7 % 34.1-44.9 L 411) HEMOGLOBIN AND [id number] 18:18:00 Test Item Value Reference Range Interpretation Comments HEMOGLOBIN (BEAKER) (test code = 8.9 GM/DL 11.2-15.7 L 410) HEMATOCRIT (BEAKER) (test code = 27.8 % 34.1-44.9 L 411) HEMOGLOBIN AND [id number] 12:13:00 Test Item Value Reference Range Interpretation Comments HEMOGLOBIN (BEAKER) (test code = 6.5 GM/DL 11.2-15.7 L 410) HEMATOCRIT (BEAKER) (test code = 20.2 % 34.1-44.9 L 411) [id number] 03:43:00 Test Item Value Reference Range Interpretation Comments MAGNESIUM (BEAKER) (test code = 2.2 mg/dL 1.6-2.6 627) BASIC METABOLIC [id number] 03:43:00 Test Item Value Reference Range Interpretation Comments SODIUM (BEAKER) 141 meq/L 136-145 (test code = 381) POTASSIUM (BEAKER) 3.9 meq/L 3.5-5.1 (test code = 379) CHLORIDE (BEAKER) 113 meq/L 98-107 H (test code = 382) CO2 (BEAKER) (test 22 meq/L 22-29 code = 355) BLOOD UREA NITROGEN 29 mg/dL 7-21 H (BEAKER) (test code = 354) CREATININE (BEAKER) 0.77 mg/dL 0.57-1.25 (test code = 358) GLUCOSE RANDOM 147 mg/dL 70-105 H (BEAKER) (test code = 652) CALCIUM (BEAKER) 8.5 mg/dL 8.4-10.2 (test code = 697) EGFR (BEAKER) (test 73 mL/min/1.73 ESTIMA WANG GFR IS code = 1092) sq m NOT ACCURATE CREATININE CLEARANCE IN PREDICTING GLOMERULAR FILTRATION RATE . ESTIMATED GFR I S NOT APPLICABLE FOR DIALYSIS PATIEN TS. HEMOGLOBIN AND [id number] 03:24:00 Test Item Value Reference Range Interpretation Comments HEMOGLOBIN (BEAKER) (test code = 7.5 GM/DL 11.2-15.7 L 410) HEMATOCRIT (BEAKER) (test code = 23.6 % 34.1-44.9 L 411) CBC W/PLT COUNT & AUTO [id number] 03:24:00 Test Item Value Reference Range Interpretation Comments WHITE BLOOD CELL COUNT (BEAKER) 8.7 K/ L 3.5-10.5 (test code = 775) RED BLOOD CELL COUNT (BEAKER) 2.65 M/ L 3.93-5.22 L (test code = 761) HEMOGLOBIN (BEAKER) (test code = 7.5 GM/DL 11.2-15.7 L 410) HEMATOCRIT (BEAKER) (test code = 23.6 % 34.1-44.9 L 411) MEAN CORPUSCULAR VOLUME (BEAKER) 89.1 fL 79.4-94.8 (test code = 753) MEAN CORPUSCULAR HEMOGLOBIN 28.3 pg 25.6-32.2 (BEAKER) (test code = 751) MEAN CORPUSCULAR HEMOGLOBIN CONC 31.8 GM/DL 32.2-35.5 L (BEAKER) (test code = 752) RED CELL DISTRIBUTION WIDTH 15.4 % 11.7-14.4 H (BEAKER) (test code = 412) PLATELET COUNT (BEAKER) (test 126 K/CU MM 150-450 L code = 756) MEAN PLATELET VOLUME (BEAKER) 11.8 fL 9.4-12.3 (test code = 754) NUCLEATED RED BLOOD CELLS 0 /100 WBC 0-0 (BEAKER) (test code = 413) NEUTROPHILS RELATIVE PERCENT 68 % (BEAKER) (test code = 429) LYMPHOCYTES RELATIVE PERCENT 24 % (BEAKER) (test code = 430) MONOCYTES RELATIVE PERCENT 6 % (BEAKER) (test code = 431) EOSINOPHILS RELATIVE PERCENT 1 % (BEAKER) (test code = 432) BASOPHILS RELATIVE PERCENT 0 % (BEAKER) (test code = 437) NEUTROPHILS ABSOLUTE COUNT 5.95 K/ L 1.56-6.13 (BEAKER) (test code = 670) LYMPHOCYTES ABSOLUTE COUNT 2.13 K/ L 1.18-3.74 (BEAKER) (test code = 414) MONOCYTES ABSOLUTE COUNT (BEAKER) 0.53 K/ L 0.24-0.36 H (test code = 415) EOSINOPHILS ABSOLUTE COUNT 0.04 K/ L 0.04-0.36 (BEAKER) (test code = 416) BASOPHILS ABSOLUTE COUNT (BEAKER) 0.01 K/ L 0.01-0.08 (test code = 417) IMMATURE GRANULOCYTES-RELATIVE 1 % 0-1 PERCENT (BEAKER) (test code = 2801) HEMOGLOBIN AND [id number] 23:21:00 Test Item Value Reference Range Interpretation Comments HEMOGLOBIN (BEAKER) (test code = 8.0 GM/DL 11.2-15.7 L 410) HEMATOCRIT (BEAKER) (test code = 24.6 % 34.1-44.9 L 411) [id number] 18:18:00 Test Item Value Reference Range Interpretation Comments MAGNESIUM (BEAKER) (test code = 1.6 mg/dL 1.6-2.6 627) BASIC METABOLIC [id number] 18:18:00 Test Item Value Reference Range Interpretation Comments SODIUM (BEAKER) 139 meq/L 136-145 (test code = 381) POTASSIUM (BEAKER) 4.1 meq/L 3.5-5.1 (test code = 379) CHLORIDE (BEAKER) 112 meq/L 98-107 H (test code = 382) CO2 (BEAKER) (test 24 meq/L 22-29 code = 355) BLOOD UREA NITROGEN 27 mg/dL 7-21 H (BEAKER) (test code = 354) CREATININE (BEAKER) 0.73 mg/dL 0.57-1.25 (test code = 358) GLUCOSE RANDOM 119 mg/dL 70-105 H (BEAKER) (test code = 652) CALCIUM (BEAKER) 8.8 mg/dL 8.4-10.2 (test code = 697) EGFR (BEAKER) (test 77 mL/min/1.73 ESTIMA WANG GFR IS code = 1092) sq m NOT ACCURATE CREATININE CLEARANCE IN PREDICTING GLOMERULAR FILTRATION RATE . ESTIMATED GFR I S NOT APPLICABLE FOR DIALYSIS PATIEN TS. [id number] 18:06:00 Test Item Value Reference Range Interpretation Comments PROTIME (BEAKER) (test code = 17.5 seconds 11.7-14.7 H 759) INR (BEAKER) (test code = 370) 1.4 <=5.9 PARTIAL THROMBOPLASTIN TIME 34.1 seconds 22.5-36.0 (BEAKER) (test code = 760) RECOMMENDED COUMADIN/WARFARIN INR THERAPY RANGESSTANDARD DOSE: 2.0 - 3.0 Includes: PROPHYLAXIS forvenous thrombosis, systemic embolization; TREATMENT for venous thrombosis and/or pulmonary embolus.HIGH RISK: Target INR is 2.5-3.5 for patients with mechanical heart valves.CBC W/PLT COUNT & AUTO DIFFERENTIAL 2018-02-18 17:58:00 Test Item Value Reference Range Interpretation Comments WHITE BLOOD CELL COUNT (BEAKER) 8.5 K/ L 3.5-10.5 (test code = 775) RED BLOOD CELL COUNT (BEAKER) 3.09 M/ L 3.93-5.22 L (test code = 761) HEMOGLOBIN (BEAKER) (test code = 8.8 GM/DL 11.2-15.7 L 410) HEMATOCRIT (BEAKER) (test code = 27.5 % 34.1-44.9 L 411) MEAN CORPUSCULAR VOLUME (BEAKER) 89.0 fL 79.4-94.8 (test code = 753) MEAN CORPUSCULAR HEMOGLOBIN 28.5 pg 25.6-32.2 (BEAKER) (test code = 751) MEAN CORPUSCULAR HEMOGLOBIN CONC 32.0 GM/DL 32.2-35.5 L (BEAKER) (test code = 752) RED CELL DISTRIBUTION WIDTH 15.0 % 11.7-14.4 H (BEAKER) (test code = 412) PLATELET COUNT (BEAKER) (test 122 K/CU MM 150-450 L code = 756) MEAN PLATELET VOLUME (BEAKER) 11.2 fL 9.4-12.3 (test code = 754) NUCLEATED RED BLOOD CELLS 0 /100 WBC 0-0 (BEAKER) (test code = 413) NEUTROPHILS RELATIVE PERCENT 66 % (BEAKER) (test code = 429) LYMPHOCYTES RELATIVE PERCENT 26 % (BEAKER) (test code = 430) MONOCYTES RELATIVE PERCENT 7 % (BEAKER) (test code = 431) EOSINOPHILS RELATIVE PERCENT 1 % (BEAKER) (test code = 432) BASOPHILS RELATIVE PERCENT 0 % (BEAKER) (test code = 437) NEUTROPHILS ABSOLUTE COUNT 5.60 K/ L 1.56-6.13 (BEAKER) (test code = 670) LYMPHOCYTES ABSOLUTE COUNT 2.18 K/ L 1.18-3.74 (BEAKER) (test code = 414) MONOCYTES ABSOLUTE COUNT (BEAKER) 0.58 K/ L 0.24-0.36 H (test code = 415) EOSINOPHILS ABSOLUTE COUNT 0.06 K/ L 0.04-0.36 (BEAKER) (test code = 416) BASOPHILS ABSOLUTE COUNT (BEAKER) 0.02 K/ L 0.01-0.08 (test code = 417) IMMATURE GRANULOCYTES-RELATIVE 0 % 0-1 PERCENT (BEAKER) (test code = 2801) RAD, CHEST, 1 VIEW, NON [id number] 17:41:00Reason for exam:->coughShould this be performed at the bedside?->YesFINAL REPORT Comparison: None TECHNIQUE: Single view of the chest FINDINGS: There is atelectasis in the lung bases. Otherwise lungs are clear. Cardiac silhouette is within normallimits. Aortic calcifications are seen. No acute skeletal abnormality. Signed: Mumtaz Reyes Verified Date/Time: 02/18/2018 17:41:25 Reading Location: [address] Reading Room
[2021-06-15 15:45] LABS: Absolute Lymphocytes (CBC) 1.2 K/uL (0.7-4.9); Basophils % 0.2 % (0-1.3); Lymphocytes % 10.2 % (15.3-44.8); MPV 9.2 fL (7.6-11.3)
[2021-06-15] MEDS ORDERED: ONDANSETRON 4 MG/2 ML VIAL ONE (15:56)
[2021-06-15] MEDS ORDERED: NA CHLORIDE 0.9% 1,000 ML ONE (15:56)
[2021-06-15 16:00] LABS: Albumin 2.7 g/dL (3.4-5.0); Bilirubin Direct 0.4 mg/dL (0-0.2); Bilirubin Total 1.3 mg/dL (0.2-1.0); Potassium 3.9 mmol/L (3.5-5.1); Protein, Total 7.6 g/dL (6.4-8.2)
[2021-06-15 16:52] LABS: SARS-COV-2 RT PCR NEGATIVE (NEGATIVE)
--- NOTE | 2021-06-15 17:10 | RAD REPORT ---
EXAM DESCRIPTION: CTAbdomen Pelvis W Contrast - 06/15/2021 4:36 pm CLINICAL HISTORY: Abdominal pain. vomiting/diarrhea;Abd pain COMPARISON: Abdomen Pelvis W Contrast dated 07/25/2019; CT ABD PELVIS W CONTRAST dated 08/13/2015 TECHNIQUE: Biphasic CT imaging of the abdomen and pelvis was performed with 100 ml non-ionic IV cont rast. All CT scans are performed using dose optimization technique as appropriate and may include automated exposure control or mA/KV adjustment according to patient size. FINDINGS: Moderate opacities in both posterior lung bases compatible with atelectasis. Nodular appearance to the liver parenchyma is seen suggesting moderate cirrhosis. There is mild intra hepatic and common bile duct dilatation noted. The gallbladder appears absent. The spleen, pancreas and adrenal glands are within normal limits. The kidneys demonstrate no mass or hydronephrosis. Sever al left upper quadrant portal collaterals are present. Moderate fat containing ventral hernia. There is significant thickening of the colon wall present win suring up to 12 mm. Multiple diverticula are also present. There is moderate surrounding inflammation about the colon in the left upper quadrant and descending colon region. The appendix is normal. Mode rate fat containing inguinal hernias bilaterally. No evidence of significant lymphadenopathy. Hardware is noted in the proximal left femur. IMPRESSION: Significant colonic wall thickening and inflammation is present particularly in the left upper quadrant and descending colon compatible with moderate to severe colitis. Liver cirrhosis.
--- NOTE | 2021-06-15 17:11 | RAD REPORT ---
EXAM DESCRIPTION: RAD - Hip Left 2 View - 06/15/2021 5:06 pm CLINICAL HISTORY: PAIN COMPARISON: <Comparisons> FINDINGS: Prominent diffuse osteopenia is seen. Hardware is present in the proximal left femur witho ut evidence of loosening. No fracture evident.
--- NOTE | 2021-06-15 17:20 | EDPHYS ---
Physician Documentation [facility] Name: Mackenzie Cutler Age: 80 yrs Sex: Female : 1940 Arrival Date: 06/15/2021 Time: 15:08 Bed 6 Private MD: ED Physician Linden Díaz HPI: 06/15 16:04 This 80 yrs old Female presents to ER via EMS with complaints of abd pain, rn nausea/vomiting/diarrhea. 16:04 The patient presents to the emergency department with nausea, vomiting, diarrhea, rn abdominal pain. Onset: The symptoms/episode began/occurred 3 day(s) ago. Possible causes: unknown. The symptoms are aggravated by nothing. The symptoms are alleviated by nothing. Associated signs and symptoms: Pertinent positives: abdominal pain, diarrhea, nausea, vomiting, Pertinent negatives: fever. Severity of symptoms: At their worst the symptoms were moderate in the emergency department the symptoms are unchanged. The patient has not experienced similar symptoms in the past. The patient has not recently seen a physician. Family reports a few days of nausea vomiting and diarrhea, diffuse abdominal pain, went to the bathroom today and had large bowel movement, when stood up had syncopal episode. Reports pain to the abdomen and left hip region. Status post left hip surgery a few months ago. No fever. No sick contacts. Does have a history of diverticulitis.. Historical: - Allergies: 15:29 No Known Allergies; mk - Home Meds: 15:29 Myrbetriq 50 mg oral Tb24 1 tab once daily for bladder hyperactivity [Active]; quetiapine 50 mg oral tab 1 tab daily [Active]; amlodipine 10 mg tab 1 tab once daily for hypertension [Active]; memantine 10 mg oral tab 1 tab 2 times per day [Active]; oxybutynin chloride 5 mg/5 mL Oral syrp 5 mL 2 times per day [Active]; losartan 50 mg oral tab 2 tabs once daily [Active]; Vitamin D Oral 1.25 mg daily [Active]; - PMHx: 15:29 Hypertensive disorder; Diabetes mellitus; Dementia; mk - Immunization history:: Adult Immunizations up to date, . - Social history:: Smoking status: Patient denies any tobacco usage or history of. - Family history:: not pertinent. - Hospitalizations: : No recent hospitalization is reported. ROS: 16:04 Constitutional: Negative for fever, chills, and weight loss, Eyes: Negative for injury, rn pain, redness, and discharge, Neck: Negative for injury, pain, and swelling, Cardiovascular: Negative for chest pain, palpitations, and edema, Respiratory: Negative for shortness of breath, cough, wheezing, and pleuritic chest pain, Abdomen/GI: + abd pain, + nausea/vomiting Back: Negative for injury and pain, : Negative for injury, bleeding, discharge, and swelling, MS/Extremity: Negative for injury and deformity, Skin: Negative for injury, rash, and discoloration, Neuro: Negative for headache, numbness, tingling, and seizure. Exam: 16:04 Constitutional: This is a well developed, well nourished patient who is awake, alert, rn appears weak and dehydrated Head/Face: Normocephalic, atraumatic. Eyes: Periorbital areas with no swelling, redness, or edema. Cardiovascular: Regular rate and rhythm. No pulse deficits. Respiratory: No increased work of breathing, no retractions or nasal flaring. Abdomen/GI: soft, + tender LLQ/suprapubic/RLQ. Skin: Warm, dry MS/ Extremity: Pulses equal, no cyanosis. Neuro: Awake and alert, GCS 15, oriented to person, place, time, and situation. Cranial nerves II-XII grossly intact. Motor strength 4/5 in all extremities. Sensory grossly intact. Vital Signs: 15:19 BP 116 / 49; Pulse 99; Resp 16; Temp 98.4; Pulse Ox 99% on R/A; mk 16:02 BP 111 / 47; Pulse 97; Resp 18; Pulse Ox 97% on R/A; mk 16:30 BP 111 / 47; Pulse 68; Resp 18; Pulse Ox 98% on R/A; mk 17:02 BP 136 / 79; Pulse 78; Resp 18; Pulse Ox 99% on R/A; mk 17:30 BP 109 / 54; Pulse 74; Resp 18; Pulse Ox 99% on R/A; mk NIH Stroke Scale Scores: 16:38 NIHSS Score: 1 Judy Coma Score: 16:02 Eye Response: to voice(3). Verbal Response: confused(4). Motor Response: obeys commands(6). Total: 13. 16:30 Eye Response: spontaneous(4). Verbal Response: confused(4). Motor Response: obeys mk commands(6). Total: 14. 17:02 Eye Response: spontaneous(4). Verbal Response: confused(4). Motor Response: obeys mk commands(6). Total: 14. 17:30 Eye Response: spontaneous(4). Verbal Response: confused(4). Motor Response: obeys mk commands(6). Total: 14. MDM: 15:12 Patient medically screened. rn 17:17 Differential diagnosis: Nonspecific abd pain, diverticulitis, viral gastroenteritis, rn gastroenteritis, colitis, dehydration. Data reviewed: vital signs, nurses notes, lab test result(s), radiologic studies, CT scan, and as a result, I will admit patient. Counseling: I had a detailed discussion with the patient and/or guardian regarding: the historical points, exam findings, and any diagnostic results supporting the discharge/admit diagnosis, lab results, radiology results, the need for further work-up and treatment in the hospital. Response to treatment: the patient's symptoms have markedly improved after treatment, and as a result, I will admit patient. Admission orders: after a detailed discussion of the patient's condition and case, the admit orders are written by me. ED course: Pt with mod-severe colitis, much better after fluids, will admit to Dr. Martin. Hemoccult trace positive 2/2 inflammation but no gross blood and normal hemoglobin. Abx ordered. . 06/15 15:23 Order name: Basic Metabolic Panel; Complete Time: 16:09 rn 06/15 15:23 Order name: CBC with Diff; Complete Time: 16:09 rn 06/15 15:23 Order name: Hepatic Function; Complete Time: 16:09 rn 06/15 15:23 Order name: Lipase; Complete Time: 16:09 rn 06/15 15:23 Order name: CT Abd/Pelvis - IV Contrast Only; Complete Time: 17:14 rn 06/15 15:58 Order name: COVID-19/FLU A+B; Complete Time: 17:14 EDAK 06/15 16:20 Order name: XRAY Hip LEFT 2 view; Complete Time: 17:14 rn 06/15 15:23 Order name: IV Saline Lock; Complete Time: 15:52 rn 06/15 15:23 Order name: Labs collected and sent; Complete Time: 15:52 rn Administered Medications: 15:58 Drug: NS 0.9% 1000 ml Route: IV; Rate: 1000 ml; Site: right antecubital; vg1 17:44 Follow up: IV Status: Completed infusion; IV Intake: 1000ml 15:58 Drug: Zofran (Ondansetron) 4 mg Route: IVP; Site: right antecubital; vg1 17:43 Follow up: Response: No adverse reaction 17:32 Not Given (Duplicate Order): Flagyl (metroNIDAZOLE) 500 mg 100 ml IVPB at 200 ml/hr rn once over 30 mins 17:43 Drug: Cipro (ciprofloxacin) 400 mg Volume: 200 ml; Route: IVPB; Infused Over: 60 mins; Site: right antecubital; 17:43 Drug: Flagyl (metroNIDAZOLE) 500 mg Route: PO; Disposition Summary: 06/15/21 17:19 Hospitalization Ordered Hospitalization Status: Inpatient Admission rn Provider: Ted Martin rn Location: Telemetry/[facility] (Inpatient) rn Condition: Stable rn Problem: new rn Symptoms: have improved rn Bed/Room Type: Standard rn Room Assignment: 201(06/15/21 17:53) bd Diagnosis - Left sided colitis rn - Dehydration rn Forms: - Medication Reconciliation Form rn - SBAR form rn NIH Stroke Scale - NIH Stroke Score Date: 06/15/2021 Time: 16:38 Total Score = 1 1a. Level of Consciousness (LOC) - 1(Not Alert) 1b. Level of Consciousness (LOC) (Month \T\ Age) - 0(Both) 1c. LOC Commands (Open \T\ Closes Eyes/Electronic Parts Designer) - 0(Both) 2. Best Gaze (Lateral Gaze Paresis) - 0(Normal) 3. Visual Field Loss - 0(No visual loss) 4. Facial Palsy - 0(Normal) 5a. Left Arm: Motor (10-second hold) - 0(No drift) 5b. Right Arm: Motor (10-second hold) - 0(No drift) 6a. Left Leg: Motor (5-second hold - always test supine) - 0(No drift) 6b. Right Leg: Motor (5-second hold - always test supine) - 0(No drift) 7. Limb Ataxia (finger/nose \T\ heel/cunningham - test with eyes open) - 0(Absent) 8. Sensory Loss (pinprick arms/legs/face) - 0(Normal) 9. Best Language: Aphasia (description/naming/reading) - 0(No aphasia) 10. Dysarthria (speech clarity - read or repeat words) - 0(Normal) 11. Extinction and Inattention (visual/tactile/auditory/spatial/personal) - 0(No abnormality) Initials: mk Signatures: Dispatcher [employer] EDMS Megan Lucia Roman, MD MD rn Garcia, Haven RN RN 1 Yissel Vazquez RN RN mk Corrections: (The following items were deleted from the chart) 15:58 15:24 SARS-COV-2 RT PCR+MOL.LAB.BRZ ordered. EDMS EDMS 15:58 15:24 Influenza Screen (A \T\ B)+BA.LAB.BRZ ordered. EDMS EDMS 17:53 17:19 kris cox
--- NOTE | 2021-06-15 17:20 | ER ---
Nurse's Notes [facility] Name: Mackenzie Cutler Age: 80 yrs Sex: Female : 1940 Arrival Date: 06/15/2021 Time: 15:08 Bed 6 Private MD: Diagnosis: Left sided colitis;Dehydration Presentation: 06/15 15:19 Chief complaint: EMS states: EMS called by family as pt found on ground by toilet mk unconscious, pt disoriented when picked up by family. At time of triage, GCS 13, AOX3 (not to time). Ebola Screen: Patient negative for fever greater than or equal to 101.5 degrees Fahrenheit, and additional compatible Ebola Virus Disease symptoms. Initial Sepsis Screen: Does the patient meet any 2 criteria? No. Patient's initial sepsis screen is negative. Does the patient have a suspected source of infection? No. Patient's initial sepsis screen is negative. Risk Assessment: Do you want to hurt yourself or someone else? Patient reports no desire to harm self or others. Onset of symptoms was June 15, 2021. 15:19 Method Of Arrival: EMS: [facility] 15:19 Acuity: KAREN 3 15:19 Acuity: KAREN 3 17:47 Coronavirus screen: Vaccine status: Patient reports receiving the 2nd dose of the covid mk vaccine. just report has had second dose. Triage Assessment: 15:58 General: Appears uncomfortable, Behavior is restless. Pain: Denies pain. EENT: No mk deficits noted. No signs and/or symptoms were reported regarding the EENT system. Neuro: Level of Consciousness is obeys commands, confused, Oriented to person, place, situation, [employer] Intern[employer] are equal bilaterally. Cardiovascular: Reports lightheadedness, Denies chest pain, Heart tones S1 S2 present Capillary refill < 3 seconds fingers toes Patient's skin is warm and dry. Pulses are 2+ in right radial artery, right dorsalis pedis artery, left radial artery and left dorsalis pedis artery Rhythm is sinus tachycardia. Respiratory: Airway is patent Respiratory effort is even, unlabored, labored, Respiratory pattern is regular, Breath sounds are clear. GI: Abdomen is non-distended, Bowel sounds present X 4 quads. Abd is soft Abd is non tender Reports diarrhea, bloody stool, family reports diarrhea x2 days, x3 episodes of dark/tarry BMs today. : No signs and/or symptoms were reported regarding the genitourinary system. Derm: Skin is intact, is fragile. Musculoskeletal: No signs and/or symptoms reported regarding the musculoskeletal system. Musculoskeletal: Denies s/p fall no s/s of injuries. Historical: - Allergies: 15:29 No Known Allergies; mk - Home Meds: 15:29 Myrbetriq 50 mg oral Tb24 1 tab once daily for bladder hyperactivity [Active]; mk quetiapine 50 mg oral tab 1 tab daily [Active]; amlodipine 10 mg tab 1 tab once daily for hypertension [Active]; memantine 10 mg oral tab 1 tab 2 times per day [Active]; oxybutynin chloride 5 mg/5 mL Oral syrp 5 mL 2 times per day [Active]; losartan 50 mg oral tab 2 tabs once daily [Active]; Vitamin D Oral 1.25 mg daily [Active]; - PMHx: 15:29 Hypertensive disorder; Diabetes mellitus; Dementia; mk - Immunization history:: Adult Immunizations up to date, . - Social history:: Smoking status: Patient denies any tobacco usage or history of. - Family history:: not pertinent. - Hospitalizations: : No recent hospitalization is reported. Screenin:38 Abuse screen: Denies threats or abuse. Nutritional screening: No deficits noted. Tuberculosis screening: No symptoms or risk factors identified. Fall Risk Fall in past 12 months (25 points). No secondary diagnosis (0 pts). IV access (20 points). Ambulatory Aid- None/Bed Rest/Nurse Assist (0 pts). Gait- Weak (10 pts.). Mental Status- Overestimates/Forgets Limitations (15 pts.). Total Burger Fall Scale indicates High Risk Score (45 or more points). Fall prevention measures have been instituted. Side Rails Up X 2 Placed Close to Nursing Station Family Present and informed to notify staff if the need to leave the bedside As available patient and family educated on Fall Prevention Program and Strategies. Assessment: 16:20 Reassessment: No changes from previously documented assessment. Patient and/or family mk updated on plan of care and expected duration. Pain level reassessed. Patient states symptoms have improved. General: Appears in no apparent distress. Pain: Denies pain. Neuro: Level of Consciousness is alert, obeys commands, Oriented to person, place, situation. Cardiovascular: Denies Heart tones S1 S2 present Capillary refill < 3 seconds is > 3 seconds Pulses are 2+ in right radial artery, right dorsalis pedis artery, left radial artery and left dorsalis pedis artery Rhythm is sinus rhythm. Respiratory: Airway is patent Respiratory effort is even, unlabored, Respiratory pattern is regular, symmetrical. GI: Abdomen is flat, Bowel sounds Reports. Derm: No signs and/or symptoms reported regarding the dermatologic system. Skin is intact, Skin temperature is warm. 17:24 Reassessment: No changes from previously documented assessment. Patient and/or family mk updated on plan of care and expected duration. Pain level reassessed. Patient states symptoms have improved. A\T\Ox3 not to time. 18:20 Reassessment: Patient and/or family updated on plan of care and expected duration. Pain mk level reassessed. Patient states symptoms have improved. see triage assessment for ED assessment. General: Appears in no apparent distress. Behavior is calm, cooperative. Vital Signs: 15:19 BP 116 / 49; Pulse 99; Resp 16; Temp 98.4; Pulse Ox 99% on R/A; mk 16:02 BP 111 / 47; Pulse 97; Resp 18; Pulse Ox 97% on R/A; mk 16:30 BP 111 / 47; Pulse 68; Resp 18; Pulse Ox 98% on R/A; mk 17:02 BP 136 / 79; Pulse 78; Resp 18; Pulse Ox 99% on R/A; mk 17:30 BP 109 / 54; Pulse 74; Resp 18; Pulse Ox 99% on R/A; mk Judy Coma Score: 16:02 Eye Response: to voice(3). Verbal Response: confused(4). Motor Response: obeys mk commands(6). Total: 13. 16:30 Eye Response: spontaneous(4). Verbal Response: confused(4). Motor Response: obeys mk commands(6). Total: 14. 17:02 Eye Response: spontaneous(4). Verbal Response: confused(4). Motor Response: obeys mk commands(6). Total: 14. 17:30 Eye Response: spontaneous(4). Verbal Response: confused(4). Motor Response: obeys mk commands(6). Total: 14. NIH Stroke Scale Scores: 16:38 NIHSS Score: 1 mk ED Course: 15:08 Patient arrived in ED. am2 15:12 Linden Díaz MD is Attending Physician. rn 15:19 Yissel Vazquez, ERIK is Primary Nurse. 15:20 Initial lab(s) drawn, by me, sent to lab. Inserted saline lock: 22 gauge in right vg1 antecubital area, using aseptic technique. Blood collected. 15:28 Triage completed. 15:30 COVID swab sent to lab. Flu and/or RSV swab sent to lab. vg1 15:30 Pulse ox on. NIBP on. mk 16:35 CT Abd/Pelvis - IV Contrast Only In Process Unspecified. EDMS 17:06 XRAY Hip LEFT 2 view In Process Unspecified. EDLA 17:19 Ted Martin MD is Hospitalizing Provider. rn 17:44 Arm band placed on. 17:45 No provider procedures requiring assistance completed. Patient admitted, IV remains in mk place. 17:45 Placed in gown. Bed in low position. Call light in reach. Side rails up X2. Adult w/ mk patient. Family accompanied patient. Administered Medications: 15:58 Drug: NS 0.9% 1000 ml Route: IV; Rate: 1000 ml; Site: right antecubital; vg1 17:44 Follow up: IV Status: Completed infusion; IV Intake: 1000ml 15:58 Drug: Zofran (Ondansetron) 4 mg Route: IVP; Site: right antecubital; vg1 17:43 Follow up: Response: No adverse reaction 17:32 Not Given (Duplicate Order): Flagyl (metroNIDAZOLE) 500 mg 100 ml IVPB at 200 ml/hr rn once over 30 mins 17:43 Drug: Cipro (ciprofloxacin) 400 mg Volume: 200 ml; Route: IVPB; Infused Over: 60 mins; Site: right antecubital; 17:43 Drug: Flagyl (metroNIDAZOLE) 500 mg Route: PO; Intake: 17:44 IV: 1000ml; Total: 1000ml. Outcome: 17:19 Decision to Hospitalize by Provider. rn 18:55 Admitted to Med/surg accompanied by tech, room 201, with chart, Report called to receiving nurse 18:55 Condition: good 18:55 Instructed on the need for admit. 18:56 Patient left the ED. NIH Stroke Scale - NIH Stroke Score Date: 06/15/2021 Time: 16:38 Total Score = 1 1a. Level of Consciousness (LOC) - 1(Not Alert) 1b. Level of Consciousness (LOC) (Month \T\ Age) - 0(Both) 1c. LOC Commands (Open \T\ Closes Eyes/Check And Transfer Beader) - 0(Both) 2. Best Gaze (Lateral Gaze Paresis) - 0(Normal) 3. Visual Field Loss - 0(No visual loss) 4. Facial Palsy - 0(Normal) 5a. Left Arm: Motor (10-second hold) - 0(No drift) 5b. Right Arm: Motor (10-second hold) - 0(No drift) 6a. Left Leg: Motor (5-second hold - always test supine) - 0(No drift) 6b. Right Leg: Motor (5-second hold - always test supine) - 0(No drift) 7. Limb Ataxia (finger/nose \T\ heel/cunningham - test with eyes open) - 0(Absent) 8. Sensory Loss (pinprick arms/legs/face) - 0(Normal) 9. Best Language: Aphasia (description/naming/reading) - 0(No aphasia) 10. Dysarthria (speech clarity - read or repeat words) - 0(Normal) 11. Extinction and Inattention (visual/tactile/auditory/spatial/personal) - 0(No abnormality) Initials: omari Signatures: Dispatcher [employer] EDLinden Steven MD MD rn Moreno, Amanda am2 Garcia, Victoria, RN RN 1 Yissel Vazquez RN RN Corrections: (The following items were deleted from the chart) 18:28 18:24 Reassessment: [facility] 18:28 18:27 Reassessment: [facility]
[2021-06-15] MEDS ORDERED: CIPROFLOXACIN 400mg IV 400 MG/200 ML BAG IV ONE (17:27)
[2021-06-15] MEDS ORDERED: metroNIDAZOLE 500 MG TABLET ONE (17:34)
[2021-06-15] MEDS ORDERED: MORPHINE 2 MG/ML SYR IV PRN (18:30)
[2021-06-15] MEDS ORDERED: ONDANSETRON 4 MG/2 ML VIAL IV PRN (18:30)
[2021-06-15] MEDS ORDERED: ACETAMINOPHEN 500 MG TAB PO PRN (18:30)
[2021-06-15] MEDS: NA CHLORIDE 0.9% 1,000 ML IV SCH (19:54)
[2021-06-15 20:55] VITALS: O2SAT 91
[2021-06-15 23:07] VITALS: BMI 28.3
[2021-06-16 00:08] LABS: Urine Appearance CLOUDY (Clear); Urine Bilirubin NEGATIVE (Negative); Urine Blood NEGATIVE (Negative); Urine Color YELLOW (Yellow); Urine Glucose NEGATIVE (Negative); Urine Protein NEGATIVE (Negative); Urine Specific Gravity >=1.030 (1.005-1.030); Urine pH 5.5 (5.0-7.0)
[2021-06-16 00:09] LABS: Urine Microscopic Reflex ORDER UMIC
[2021-06-16] MEDS: PIPER TAZO 3.375 GM in NA CHLORIDE 0.9% 100 ML IV SCH ×2 (00:15→09:31)
[2021-06-16 00:33] LABS: Urine Bacteria >50 /HPF (<20)
[2021-06-16 00:34] LABS: Urine RBC <5 /HPF (NONE SEEN); Urine Urothelial Cells <5 /HPF (NONE SEEN)
[2021-06-16] MEDS: NA CHLORIDE 0.9% 1,000 ML IV SCH (05:49)
[2021-06-16 06:41] LABS: Absolute Lymphocytes (CBC) 2.6 K/uL (0.7-4.9); Basophils % 0.2 % (0-1.3); Hematocrit 31.4 % (36.0-45.0); Lymphocytes % 25.7 % (15.3-44.8); MPV 9.4 fL (7.6-11.3); RBC Red Blood Cell Count 3.53 M/uL (3.86-4.86)
[2021-06-16 06:57] LABS: Magnesium 2.2 mg/dL (1.8-2.4); Potassium 3.8 mmol/L (3.5-5.1)
[2021-06-16] MEDS ORDERED: PNEUMOCOCCAL VACCINE 0.5 ML IMVAC ONE (09:00)
[2021-06-16] MEDS ORDERED: INFLUENZA VACCINE (for 6+ mo) 0.5 ML DOSE IMVAC ONE (09:00)
[2021-06-16] MEDS ORDERED: LOSARTAN POTASSIUM 50 MG TABLET PO SCH (09:00)
[2021-06-16] MEDS ORDERED: MEMANTINE HCL 10 MG TABLET PO SCH (09:00)
[2021-06-16] MEDS ORDERED: PIPERACIL/TAZO 3.375 GM VIAL IV ONE (09:20)
[2021-06-16] MEDS ORDERED: NA CHLORIDE 0.9% 100 ML ONE (09:21)
[2021-06-16 10:33] VITALS: BP 127/60; TEMP 97.7
--- NOTE | 2021-06-16 13:08 | P.SSS ---
Patient History Date of Service: 06/16/21 Reason for admission: DIARRHEA FOR TWO DAYS History of Present Illness: RIAN HAS DIARRHEA. I SAW HER AND FAMILY STILL BROUGHT HER TO ER THEY SAW SOME BLOOD. ER DOCTOR DID NOT FIND ANY BLOOD. ON CT SCAN SHE HAS COLITIS. SHE IS COMFORTABLE AND HAS NO DIARRHEA TODAY. Allergies No Known Allergies Allergy (Verified 06/15/21 23:15) Home medications list reviewed: Yes Home Medications: Amlodipine [Norvasc] 10 mg PO DAILY 06/15/21 Ergocalciferol (Vitamin D2) [Vitamin D2] 1,250 mcg PO SEECOM 06/15/21 Losartan Potassium 100 mg PO DAILY 06/15/21 Memantine HCl 10 mg PO BID 06/15/21 Mirabegron [Myrbetriq] 50 mg PO SEECOM 06/15/21 Oxybutynin Chloride 5 mg PO SEECOM 06/15/21 Quetiapine Fumarate [Seroquel] 50 mg PO BEDTIME 06/15/21 - Past Medical/Surgical History Has patient received pneumonia vaccine in the past: No Diabetic: No -: Hypertension -: Osteoporosis -: Diverticulitis -: Dementia -: Hysterectomy -: Cholecystectomy -: Bladder surgery -: Rectal surgery - colon tear (2017) - Family History Brother -: Diabetes Sister -: Diabetes Father -: Heart disease Notes: Mother -: Heart disease Notes: - Social History Smoking Status: Never smoker Alcohol use: No CD- Drugs: No Caffeine use: No Place of Residence: Home Review of Systems 10-point ROS is otherwise unremarkable Gastrointestinal: Diarrhea Physical Examination - Vital Signs Temperature: 97.7 F Blood Pressure: 127/60 Pulse: 78 Respirations: 16 Pulse Ox (%): 92 - Physical Exam General: Alert, Mild distress HEENT: Atraumatic, PERRLA, Mucous membr. moist/pink, EOMI, Sclerae nonicteric Neck: Supple, 2+ carotid pulse no bruit, No LAD, Without JVD or thyroid abnormality Respiratory: Clear to auscultation bilaterally, Normal air movement Cardiovascular: Regular rate/rhythm, Normal S1 S2 Gastrointestinal: Normal bowel sounds, No tenderness Musculoskeletal: No tenderness Integumentary: No rashes Neurological: Normal gait, Normal speech, Normal strength at 5/5 x4 extr, Normal tone, Normal affect Lymphatics: No axilla or inguinal lymphadenopathy - Studies Laboratory Data (last 24 hrs) 06/15/21 15:20: WBC 11.40 H, Hgb 12.5, Hct 38.0, Plt Count 128 L 06/15/21 15:20: Sodium 143, Potassium 3.9, BUN 20 H, Creatinine 1.54 H, Glucose 176 H, Total Bilirubin 1.3 H, AST 27, ALT 30, Alkaline Phosphatase 188 H, Lipase 49 L - Diagnosis (Problem(s)) (1) Colitis Current Visit: Yes Status: Acute Plan: ER DOCTOR STARTED IV ZOSYN. I WILL CONTINUE THAT. CHECK STOOL FOR C DIFF BUT SHE HAS NO BM TODAY. I SAW HER LAST NIGHT AND SHE LOOKED COMFORTABLE. (2) Alzheimer disease Current Visit: Yes Status: Chronic Plan: STABLE ON MEDS. - Disposition Disposition: ROUTINE DISCHARGE
[2021-06-16] MEDS ORDERED: QUETIAPINE 25 MG TAB PO SCH (21:00)
[2021-06-17] MEDS ORDERED: HOME MED 1 EA UNK (Mirabegron [Myrbetriq] 50 MG Tab.Er.24h) PO SCH (09:00)
[2021-06-17] MEDS ORDERED: ENOXAPARIN 40 MG/0.4 ML SQ SCH (09:00)
[2021-06-20] MEDS ORDERED: DRISDOL (VITAMIN D=ERGOCALCIFEROL) 50000 UNIT CAP PO SCH (09:00)
== END 2021-06-16 16:20 | disposition home or self-care (01) | DRG 392 ==
LOC: ER 15:03 → ERHOLD 17:20 → 2ND 18:24
PROVIDERS: ADMIT Internal Medicine; ATTEND Internal Medicine
DX: K52.9 Noninfective gastroenteritis and colitis, unspecified (principal); I10 Essential (primary) hypertension; E11.9 Type 2 diabetes mellitus without complications; E86.0 Dehydration; G30.9 Alzheimer's disease, unspecified; F02.80 Dementia in other diseases classified elsewhere, unspecified severity, without behavioral disturbance, psychotic disturbance, mood disturbance, and anxiety; Z79.899 Other long term (current) drug therapy; Z90.710 Acquired absence of both cervix and uterus; Z90.49 Acquired absence of other specified parts of digestive tract; Z20.822 Contact with and (suspected) exposure to COVID-19; Z23 Encounter for immunization
CPT/HCPCS: 0240U; 36415; 74177; 80048; 80076; 81003; 81015; 83690; 83735; 85025; 87077; 87086; 87088; 87186; 90471; 90732; 96361; 96374; 96375; 99285; J0744; J2270; J2405; J2543; J7030; Q2035; Q9967

== ENCOUNTER 2022-08-12 16:47 | Observation (INO) | payer OTHER ==
--- OUTSIDE RECORDS SUMMARY | 2022-08-12 16:51 | XMS REPORT | Continuity of Care Document ---
:1940 Author Organization [facility] t Address [address] [place] [address] Care Team Providers Name Role Phone Ted Raines Primary Care Physician Boy Merchant MD Attending Clinician MORIS GOLDMAN Attending Clinician Unavailable Moris Deshpande Attending Clinician Doctor Unassigned, Tow Attending Clinician Unavailable Mary Lou Lan RN Attending Clinician Unavailable Carla Gottlieb Attending Clinician Shahzad Garber MD Attending Clinician NATHANIEL ALBA Attending Clinician Unavailable RACHELLE BURT Attending Clinician Unavailable Shahzad Garber MD Admitting Clinician YESSENIA GARZA Admitting Clinician Unavailable RACHELLE BURT Admitting Clinician Unavailable Payers Payer Name Policy Type Policy Number Effective Date Expiration Date S ource Problems Condition Condition Condition Status Onset Resolution Last Treating Co mments Source Name Details Category Date Date Treatment Clinician Date Dizziness Dizziness Disease Active Uni vers 8-16 ity of 00:00: [address] Essential Essential Disease Active Uni vers hypertensi hypertensi 8-16 it y of [place] on 00:00: [place] 00 Medical Branch UTI UTI Disease Active Univers (urinary (urinary 8-16 ity of tract tract 00:00: [place] infection) infection) 00 Co dical Branch Closed Closed Disease Active Univers left hip left hip 8-15 [place] fracture[place] 00 Medical encounter encounter Bran [facility] AAA AAA Disease Active [facility] (abdominal (abdominal 1-26 [facility] aortic aortic 00:00: Medical aneurysm) aneurysm) 00 Cent er Hematochez Hematochez Disease Active [facility]25 [facility] Obesity Obesity Disease [facility] Acute Acute Disease Active [facility] blood loss blood loss 8-19 [facility] anemia anemia 00:00: Medical 00 Center Hx of Hx of Disease Active [facility] gastrointe gastrointe 8-19 [facility] stinal stinal 00:00: Medical diverticul diverticul 00 Ce nter ar ar hemorrhage hemorrhage Acute Acute Disease Active [facility] gastrointe gastrointe 8-19 [facility] stinal stinal 00:00: Medical bleeding bleeding 00 Center Essential Essential Disease Active [facility] hypertensi hypertensi 8-19 [facility] on on 00:00: Medical 00 Center Allergies, Adverse Reactions, Alerts Allergy Allergy Status Severity Reaction(s) Onset Inactive Treating Comm ents Source Name Type Date Date Clinician NO KNOWN Drug Active Univers ALLERGIE Class ity of S [facility] NO KNOWN Allergy Active [facility] ALLERGIE S Social History Social Habit Start Date Stop Date Quantity Comments Source Exposure to Not sure [facility] SARS-CoV-2 [place] [facility] (event) Branch Alcohol intake 2018-02-19 2018-02-[address] [facility] [address] [facility] 00:00:00 00:00:00 non-drinker of Medical Ce nter alcohol (finding) Tobacco use and 2018-02-18 2018-02-[address] [facility] exposure 00:00:00 00:00:00 Medical Center Sex Assigned At [address] [facility] 00:00:00 00:00:00 Medical Center Smoking Status Start Date Stop Date Source Never smoker [facility] Medications Ordered Filled Start Stop Current Ordering Indication Dosage Frequency Signature Comments Components Source Medication Medication Date Date Medication? Clinician (SIG) Name Name memantine Yes 10mg Take 10 mg Un deborah 10 mg 8-18 by mouth 2 ity of tablet 18:23: (two) [place] [id number] times Medical daily. Branch losartan 50 Yes 50mg Take 50 mg Univers mg tablet 8-18 by mouth ity of 18:23: daily. [address] PARoxetine Yes 10mg Take 10 mg U nivers 10 mg 8-18 by mouth ity of tablet 18:23: daily. [address] memantine Yes 10mg Take 10 mg Un deborah 10 mg 8-18 by mouth 2 ity of tablet 18:23: (two) [address] daily. Branch losartan 50 Yes 50mg Take 50 mg Univers mg tablet 8-18 by mouth ity of 18:23: daily. [address] PARoxetine Yes 10mg Take 10 mg U nivers 10 mg 8-18 by mouth ity of tablet 18:23: daily. [address] memantine Yes 10mg Take 10 mg Un deborah 10 mg 8-18 by mouth 2 ity of tablet 18:23: (two) [address] daily. Branch losartan 50 Yes 50mg Take 50 mg Univers mg tablet 8-18 by mouth ity of 18:23: daily. [address] PARoxetine Yes 10mg Take 10 mg U nivers 10 mg 8-18 by mouth ity of tablet 18:23: daily. [address] lisinopril Yes 20mg QD Take [address] (PRINIVIL,Z 1-29 by mouth Luke s ESTRIL) 20 11:28: daily. Medic al MG tablet 17 Center ibandronate Yes 150mg Take [address] (BONIVA) 1-29 mg by [facility] 150 mg 11:28: mouth Medical tablet 17 every 30 Center (thirty) days Take in AM with glass of water prior to food, don't lie down for 30 minutes. . polyethylen Yes 17g Q.5D Take [address] e glycol 8-21 by mouth 2 [facility] (MIRALAX) 00:00: (two) Medical 17 00 times Center gram/dose daily. powder Vital Signs Vital Name Observation Time Observation Value Comments Source Body height 2021-04-05 19:30:00 160 cm [facility] Body weight 2021-04-05 19:30:00 75.751 kg [facility] BMI 2021-04-05 19:30:00 29.58 kg/m2 [facility] Procedures This patient has no known procedures. Plan of Care Planned Activity Planned Date Details Comments Source Future Scheduled 2022-07-[address] [facility] Test 00:00:00 (12+) [code = Medical Center DEPRESSION SCREENING (12+)] Future Scheduled 2022-07-03 FALLS RISK SCREENING [facility] Test 00:00:00 [code = FALLS RISK Medical C enter SCREENING] Future Scheduled 2022-03-03 INFLUENZA VACCINE (#1) [facility] 00:00:00 [code = INFLUENZA Medical Ce nter VACCINE (#1)] Future Scheduled 2006-08-[address] [facility] Test 00:00:00 WELLNESS (YEAR 2 or Medical Center FIRST YEAR if no IPPE) [code = MEDICARE ANNUAL WELLNESS (YEAR 2 or FIRST YEAR if no IPPE)] Future Scheduled 2005 PNEUMOCOCCAL 65+ YRS [facility] Test 00:00:00 (1 - PCV) [code = Medical Ce nter PNEUMOCOCCAL 65+ YRS (1 - PCV)] Future Scheduled 1990 SHINGLES VACCINES ([address] [facility] Test 00:00:00 of 2) [code = SHINGLES Medic al Center VACCINES (1 of 2)] Future Scheduled 1959 DTAP/TDAP/TD VACCINES [facility] Test 00:00:00 (1 - Tdap) [code = Medical C enter DTAP/TDAP/TD VACCINES (1 - Tdap)] Future Scheduled [address] [facility] Test 00:00:00 Counseling and Medical Cente r Screening (12+) [code = Tobacco Cessation Counseling and Screening (12+)] Future Scheduled 1941-02-16 COVID-19 VACCINE (#1) [facility] 00:00:00 [code = COVID-[address] VACCINE (#1)] Future Scheduled 1940 DXA SCAN [code = DXA [facility] Test 00:00:00 SCAN] Medical Center Encounters Start End Encounter Admission Attending Care Care Encounter Source Date/Time Date/Time Type Type Clinicians Facility Department ID 2021-04-19 2021-04-19 Telephone Shonda [facility] [id number] Univers 00:00:00 00:00:00 Boy Velasco [id number] it y of [place] [id number] Forrest as Teodoro?Blea [phone] Co heather mejia [address] [facility] 2021-04-05 2021-04-05 [facility] [id number] Univers 14:30:00 23:59:00 Encounter Boy Velasco [id number] ity of [place] [id number] Forrest as Teodoro?Blea [phone] Co eloydavid mejia 809 [facility] 2021-04-05 2021-04-05 [facility] [id number] Univers 16:15:00 16:15:00 MORIS santoro [facility] 2021-04-05 2021-04-05 Office Boy Merchant [facility] 1.2.840. 114 [id number] Univers 14:14:04 15:04:03 Visit Moris Goldman [employer] [id number] ity of [place] [id number] Forrest as Teodoro?Blea [id number] Co heather mejia 198 [facility] 2021-04-05 2021-04-05 [facility]patient [facility] [id number] Univers 13:30:00 13:30:00 MORIS santoro [facility] 2021-04-05 2021-04-05 [facility] [id number] Univers 00:00:00 00:00:00 Boy Ramirez [employer] [id number] it y of [place] [id number] Forrest as Teodoro?Blea [phone] Co [address] Office [facility] 2021-03-05 2021-03-05 Outpatient R SUSI [facility] [id number] Univers 08:00:00 08:00:00 MORIS itshanell of [facility] 2021-03-05 2021-03-05 [facility] [id number] Univers 07:40:17 07:55:17 Visit Moris [facility] [id number] it y of [place] [id number] Forrest as Teodoro?Blea [phone] [address] Office [facility] 2021-03-05 2021-03-05 Orders Doctor MARVA 1.2.840.114 [id number] Univers 00:00:00 00:00:00 Only Unassigned, DIONICIO 350.1.13.10 [place] [facility] 4.2.7.2.686 [place] as [id number] [address] 2021-03-05 2021-03-05 Orders Doctor MARVA [id number] Univers 00:00:00 00:00:00 Only Unassigned, DIONICIO [id number] [place] [facility] 4.2.7.2.686 [place] as [phone] [address] 2021-03-04 2021-03-04 [facility] 1.2.840.114 [id number] Univers 00:00:00 00:00:00 Boy [facility] [id number] it y of [place] 4.2.7.2.686 Forrets as Teodoro?Blea [phone] [address] Office [facility] 2021-03-03 2021-03-03 Outpatient R SUSI [facility] [id number] Univers 13:00:00 13:00:00 MORIS santoro [facility] 2021-02-18 2021-02-18 Transition Steven Lan 1.2.840.114 [id number] Univers 00:00:00 00:00:00 of Care Mary Lou B Mullen 350.1.13.10 it [place]2.[place] [id number] [facility] [address] Branch 2021-02-14 2021-02-17 Hospital Carla Osorio [facility] [id number] Univers 16:06:00 18:21:00 Encounter Shahzad Garber 350.1.13.10 ity [place] [id number] [facility] [id number] [facility] 081 Branch 2021-02-14 2021-02-14 Emergency X [facility] ERT [id number] Univers 15:57:00 15:57:00 ity [facility] 2019-09-09 2019-09-09 Outpatient [facility] [id number] [id number] [facility] 00:00:00 00:00:00 [id number] Results Test Description Test Time Test Comments Results Result Comments Source BLOOD CULTURE 2019-08-03 18:00:00 Test Item Value Reference Range Interpretation Comme nts CULTURE (BEAKER) (test code = 1095) No growth in 5 days BLOOD [id number] 18:00:00 Test Item Value Reference Range Interpretation Comments CULTURE (BEAKER) (test No growth in 5 days code = 1095) CBC W/PLT COUNT & AUTO [id number] 05:40:00 Test Item Value Reference Range Interpretation [...] = 2801) RAD, CHEST, 1 VIEW, NON [id number] 13:49:00Reason for exam:->feverShould this be performed at the bedside?->YesFINAL REPORT RAD, CHEST, 1 VIEW, NON DEPT INDICATION: fever COMPARISON: February 18, 2018 FINDINGS: Portable frontal view of the chest. IMPRESSION: Support Lines: None. Lungs and pleura: Basilar subsegmental atelectasis. Trace left effusion. No pneumothorax.Heart and mediastinum: Stable contours. Additional findings: None. Signed: JR Walsh Robert MDReport Verified Date/Time: 07/30/2019 13:49:45 Reading Location: [facility] Radiology Reading Room URINALYSIS W/ REFLEX URINE [id number] 09:47:00 Test Item Value Reference Range Interpretation [...] = 516) SOURCE(BEAKER) (test code = 2795) Volleyball Assistant Coach ID - [auto]Volleyball Assistant Coach ID - hankHEMOGLOBIN AND [id number] 04:38:00 Test Item Value Reference Range Interpretation Comments HEMOGLOBIN (BEAKER) (test code = 7.1 GM/DL 11.2-15.7 L 410) HEMATOCRIT (BEAKER) (test code = 21.5 % 34.1-44.9 L 411) Volleyball Assistant Coach ID - [id number] W/PLT COUNT & AUTO [id number] 06:47:00 Test Item Value Reference Range Interpretation [...] (BEAKER) (test code = 2801) HEPATIC FUNCTION [id number] 06:37:00 Test Item Value Reference Range Interpretation [...] (test code = 18 U/L 6-55 347) Volleyball Assistant Coach ID Jacky BENITEZ WBASIC METABOLIC [id number] 06:37:00 Test Item Value Reference Range Interpretation [...] S NOT APPLICABLE FOR DIALYSIS PATIEN TS. Volleyball Assistant Coach ID Jacky BENITEZ WHEPATIC FUNCTION [id number] 16:45:00 Test Item Value Reference Range Interpretation [...] (test code = 18 U/L 6-55 347) Volleyball Assistant Coach JOSE CARLOS FERNANDEZ WBASIC METABOLIC [id number] 16:45:00 Test Item Value Reference Range Interpretation [...] S NOT APPLICABLE FOR DIALYSIS PATIEN TS. Volleyball Assistant Coach JOSE CARLOS FERNANDEZ WCBC W/PLT COUNT & AUTO [id number] 16:21:00 Test Item Value Reference Range Interpretation [...] (BEAKER) (test code = 2801) HEMOGLOBIN AND [id number] 19:00:00 Test Item Value Reference Range Interpretation Comments HEMOGLOBIN (BEAKER) (test code = 8.5 GM/DL 11.2-15.7 L 410) HEMATOCRIT (BEAKER) (test code = 25.9 % 34.1-44.9 L 411) Volleyball Assistant Coach ID - [id number], CTA [id number] 18:32:00FINAL REPORT EXAM: CT, CTA of the [...] hepatomegaly. Status post cholecystectomy. Mild intrahepatic biliary ductaldilatation, nonspecific cholecystectomy. Common duct measures up to 15 mm in caliber with distal tapering. Biliary ductal dilatation is nonspecific given patient [...] in the ascending colon. No bowel obstruction or abnormal wall thickening. Nonvisualization of the appendix. PERITONEUM/RETROPERITONEUM: No free air, free fluid or fluid collection. VESSELS: Perisplenic and paraesophageal varices, abdominal collateral vessels as well as recanalization of the paraumbilical vein in keeping with portal venous hypertension.Atheromatous changes of the aorta and branches with ulcerations as well as calcified and noncalcified mural plaque. 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 Patent origin of the celiac artery, SMA and SAÚL. 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 LYMPH NODES: No abdominal or pelvic lymphadenopathy. SOFT TISSUES: Small fat-containing bilateral inguinal hernias.BONES: Age-indeterminate severe compression fracture deformity of T11 without paraspinal hematoma or retropulsion. Mild grade 1 anterolisthesis at L3/L4. Multilevel degenerative changes of the visualized spine. IMPRESSION: No CT evidence of active GI bleeding. Colonic diverticulosis without acute diverticulitis. Small [...] exclude infection. Mild cardiomegaly. Signed: Rebeka Malhotra [facility] & HE[facility] SERVICESeport Verified Date/Time: 07/27/2019 18:32:58 VITAMIN B12 AND [id number] 15:39:00 Test Item Value Reference Range Interpretation Comments VITAMIN B12 (BEAKER) (test code = < pg/mL 213-816 L 774) FOLATE (BEAKER) (test code = 362) 16.1 ng/mL >=7.0 Volleyball Assistant Coach ID - KELLY [id number] 15:30:00 Test Item Value Reference Range Interpretation Comments FERRITIN (BEAKER) (test code = 361) 22 ng/mL 5-275 Volleyball Assistant Coach ID - KELLY JAH, TIBC, % SAT. (WITHOUT FERRITIN)2019-07-27 14:55:00 Test Item Value Reference Range Interpretation Comments IRON (BEAKER) (test code = 547) 56.0 ug/dL 40.0-160.0 TOTAL IRON BINDING CAPACITY 260 ug/dL 250-450 (BEAKER) (test code = 769) IRON % SATURATION (2) (BEAKER) 22 % 20-55 (test code = 2590) Volleyball Assistant Coach ID - KELLY MHEPATIC FUNCTION [id number] 06:41:00 Test Item Value Reference Range Interpretation [...] (test code = 22 U/L 6-55 347) Volleyball Assistant Coach ID - KELLY MBASIC METABOLIC [id number] 06:41:00 Test Item Value Reference Range Interpretation [...] 697) EGFR (BEAKER) (test 76 mL/min/1.73 ESTIMA WAGN GFR IS code = 1092) sq m NOT ACCURATE CREATININE CLEARANCE IN PREDICTING GLOMERULAR FILTRATION RATE . ESTIMATED GFR I S NOT APPLICABLE FOR DIALYSIS PATIEN TS. Volleyball Assistant Coach JOSE CARLOS Jacky MENDOZA MHEPATITIS PANEL, [id number] 06:27:00 Test Item Value Reference Range Interpretation Comments HEPATITIS A IGM ANTIBODY (BEAKER) Nonreactive Nonreactive (test code = 498) HEPATITIS B CORE IGM ANTIBODY Nonreactive Nonreactive (BEAKER) (test code = 645) HEPATITIS C ANTIBODY (BEAKER) Nonreactive Nonreactive (test code = 367) HEPATITIS B SURFACE ANTIGEN (2) Nonreactive Nonreactive (BEAKER) (test code = 2585) Volleyball Assistant Coach ID - KELLY MPROTHROMBIN [id number] 05:50:00 Test Item Value Reference Range Interpretation Comments PROTIME (BEAKER) (test code = 17.7 seconds 11.9-14.2 H 759) INR (BEAKER) (test code = 370) 1.5 <=5.9 Effective 11/28/2018: PT Reference Range ChangeNew: 11.9-14.2 Previous: 11.7- 14.7RECOMMENDED COUMADIN/WARFARIN INR THERAPY RANGESSTANDARD DOSE: 2.0-3.0 Includes: PROPHYLAXIS for venous thrombosis, systemic embolization; TREATMENT for venous thrombosis and/or pulmonary embolus.HIGH RISK: Target INR is 2.5-3.5 for patients wiht mechanical heart valves.CBC W/PLT COUNT & AUTO [id number] 05:40:00 Test Item Value Reference Range Interpretation [...] PERCENT (BEAKER) (test code = 2801) TISSUE [id number] 15:34:00Surgical Pathology Report Case: [id number] Authorizing Provider: Lay Elizalde MD Collected: 02/19/2018 1637 Ordering Location: [address] Received: 02/20/2018 0812 Service Pathologist: Shashank Francis MD Specimens: A) - Polyp, NOS, Appendeceal orifice polyp with hot snare and Duraclip x1 B) - Polyp, Colon - Hepatic Flexure, Hepatic flexure polyp C) - Polyp, Colon - Sigmoid, Sigmoid colon polyp with hot snare and Duraclipx1 PART A 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 Signing Pathologist Direct Phone Line: [phone] signed by Shashank Francis MD on 02/20/2018 at 3:34 [id number] bleedingA. Appendiceal orifice polyp. B. Hepatic flexure [...] colon sigmoid" is a single fragment measuring 0.5cm in greatest dimension. Specimen is entirely submitted in C1. DB/ew PERFORMED.[id number] 13:42:00 Test Item Value Reference Range Interpretation [...] L (test code = 2590) HEMOGLOBIN AND [id number] 12:16:00 Test Item Value Reference Range Interpretation Comments HEMOGLOBIN (BEAKER) (test code = 7.3 GM/DL 11.2-15.7 L 410) HEMATOCRIT (BEAKER) (test code = 22.7 % 34.1-44.9 L 411) HEMOGLOBIN AND [id number] 04:48:00 Test Item Value Reference Range Interpretation Comments HEMOGLOBIN (BEAKER) (test code = 7.4 GM/DL 11.2-15.7 L 410) HEMATOCRIT (BEAKER) (test code = 22.7 % 34.1-44.9 L 411) HEMOGLOBIN AND [id number] 18:18:00 Test Item Value Reference Range Interpretation Comments HEMOGLOBIN (BEAKER) (test code = 8.9 GM/DL 11.2-15.7 L 410) HEMATOCRIT (BEAKER) (test code = 27.8 % 34.1-44.9 L 411) HEMOGLOBIN AND [id number] 12:13:00 Test Item Value Reference Range Interpretation Comments HEMOGLOBIN (BEAKER) (test code = 6.5 GM/DL 11.2-15.7 L 410) HEMATOCRIT (BEAKER) (test code = 20.2 % 34.1-44.9 L 411) [id number] 03:43:00 Test Item Value Reference Range Interpretation Comments MAGNESIUM (BEAKER) (test code = 2.2 mg/dL 1.6-2.6 627) BASIC METABOLIC [id number] 03:43:00 Test Item Value Reference Range Interpretation [...] APPLICABLE FOR DIALYSIS PATIEN TS. HEMOGLOBIN AND [id number] 03:24:00 Test Item Value Reference Range Interpretation Comments HEMOGLOBIN (BEAKER) (test code = 7.5 GM/DL 11.2-15.7 L 410) HEMATOCRIT (BEAKER) (test code = 23.6 % 34.1-44.9 L 411) CBC W/PLT COUNT & AUTO [id number] 03:24:00 Test Item Value Reference Range Interpretation [...] (BEAKER) (test code = 2801) HEMOGLOBIN AND [id number] 23:21:00 Test Item Value Reference Range Interpretation Comments HEMOGLOBIN (BEAKER) (test code = 8.0 GM/DL 11.2-15.7 L 410) HEMATOCRIT (BEAKER) (test code = 24.6 % 34.1-44.9 L 411) [id number] 18:18:00 Test Item Value Reference Range Interpretation Comments MAGNESIUM (BEAKER) (test code = 1.6 mg/dL 1.6-2.6 627) BASIC METABOLIC [id number] 18:18:00 Test Item Value Reference Range Interpretation [...] S NOT APPLICABLE FOR DIALYSIS PATIEN TS. [id number] 18:06:00 Test Item Value Reference Range Interpretation Comments PROTIME (BEAKER) (test code = 17.5 seconds 11.7-14.7 H 759) INR (BEAKER) (test code = 370) 1.4 <=5.9 PARTIAL THROMBOPLASTIN TIME 34.1 seconds 22.5-36.0 (BEAKER) (test code = 760) RECOMMENDED COUMADIN/WARFARIN INR THERAPY RANGESSTANDARD DOSE: 2.0 - 3.0 Includes: PROPHYLAXIS for venous thrombosis, systemic embolization; TREATMENT for venous thrombosis and/or pulmonary embolus.HIGH RISK: Target INR is 2.5-3.5 for patients with mechanical heart valves.CBC W/PLT COUNT & AUTO [id number] 17:58:00 Test Item Value Reference Range Interpretation [...] = 2801) RAD, CHEST, 1 VIEW, NON [id number] 17:41:00Reason for exam:->coughShould this be performed at the bedside?->YesFINAL REPORT Comparison: None TECHNIQUE: Single view of the chest FINDINGS: There is atelectasis in the lung bases. Otherwise lungs are clear. Cardiac silhouette is within normal limits. Aortic calcifications are seen. No acute skeletal abnormality. Signed: Mumtaz Reyes Verified Date/Time: 02/18/2018 17:41:25 Reading Location: [address] Reading Room
[2022-08-12 17:17] LABS: Absolute Lymphocytes (CBC) 0.9 K/uL (0.7-4.9); Hematocrit 42.7 % (36.0-45.0); Lymphocytes % 11.1 % (15.3-44.8); MCV 93.5 fL (80-100); MPV 9.2 fL (7.6-11.3); RBC Red Blood Cell Count 4.56 M/uL (3.86-4.86)
[2022-08-12] MEDS ORDERED: NA CHLORIDE 0.9% 1,000 ML ONE (17:27)
--- NOTE | 2022-08-12 17:28 | RAD REPORT ---
EXAM DESCRIPTION: RAD - Shoulder Left 2 View - 08/12/2022 5:19 pm CLINICAL HISTORY: PAIN COMPARISON: No comparisons FINDINGS/IMPRESSION: No acute fracture. Mild left AC joint and glenohumeral joint degenerative salazar ges. High-riding humeral head may reflect rotator cuff pathology.
--- NOTE | 2022-08-12 17:28 | RAD REPORT ---
EXAM DESCRIPTION: RAD - Shoulder Right 2 View - 08/12/2022 5:19 pm CLINICAL HISTORY: PAIN COMPARISON: No comparisons FINDINGS/IMPRESSION: Multipart fracture of the right proximal humerus involving at least the surgica l neck and greater tuberosity. No dislocation.
[2022-08-12 17:43] LABS: Albumin 2.9 g/dL (3.4-5.0); Bilirubin Total 1.3 mg/dL (0.2-1.0); Magnesium 2.2 mg/dL (1.6-2.4); Potassium 3.7 mmol/L (3.5-5.1); Protein, Total 7.5 g/dL (6.4-8.2); Thyroid Stimulating Hormone 0.907 uIU/mL (0.358-3.740)
[2022-08-12] MEDS ORDERED: MORPHINE 4 MG/ML SYR ONE (17:49)
[2022-08-12] MEDS ORDERED: ONDANSETRON 4 MG/2 ML VIAL ONE (17:49)
[2022-08-12 19:02] LABS: Urine Blood Trace-intact (Negative); Urine Glucose Negative (Negative); Urine Protein Negative (Negative)
[2022-08-12 19:09] LABS: Specific Gravity 1.021 (1.005-1.030); Urine Bacteria <20 /HPF (<20); Urine Bilirubin NEGATIVE (Negative); Urine Blood Negative (Negative); Urine Clarity Turbid (Clear); Urine Color Yellow (Yellow); Urine Glucose NEGATIVE (Negative); Urine Mucus Slight /HPF (None Seen); Urine Protein TRACE (Negative); Urine RBC <5 /HPF (None Seen); Urine Urobilinogen 2+ (Normal)
--- NOTE | 2022-08-12 19:25 | ER ---
Nurse's Notes [facility] Name: Mackenzie Cutler Age: 81 yrs Sex: Female : 1940 Arrival Date: 08/12/2022 Time: 16:54 Bed 7 Private MD: Diagnosis: Fall from standing;Dehydration;Lactic acidosis;Right proximal humerus fracture Presentation: 08/12 16:58 Chief complaint: EMS states: pt fell at 0930 this morning and was found around 4pm, iw fell on right shoulder , pt A\T\OX4, denies LOC or hitting her head. Coronavirus screen: At this time, the client does not indicate any symptoms associated with coronavirus-19. Ebola Screen: Patient negative for fever greater than or equal to 101.5 degrees Fahrenheit, and additional compatible Ebola Virus Disease symptoms Patient denies exposure to infectious person. Patient denies travel to an Ebola-affected area in the 21 days before illness onset. No symptoms or risks identified at this time. Initial Sepsis Screen: Does the patient meet any 2 criteria? No. Patient's initial sepsis screen is negative. Does the patient have a suspected source of infection? No. Patient's initial sepsis screen is negative. Risk Assessment: Do you want to hurt yourself or someone else? Patient reports no desire to harm self or others. Onset of symptoms was August 12, 2022. 16:58 Method Of Arrival: EMS: [facility] iw 16:58 Acuity: KAREN 3 iw Historical: - Allergies: 16:57 No Known Allergies; ll1 - PMHx: 16:57 Dementia; diabetes mellitus; Hypertensive disorder; ll1 - Immunization history:: Adult Immunizations up to date. - Social history:: Smoking status: Patient denies any tobacco usage or history of. - Family history:: not pertinent. Screenin:30 [facility] ED Fall Risk Assessment (Adult) History of falling in the last 3 months, ll1 including since admission Yes- physiologic fall (2 pts) Impaired Gait Yes (1 pt) Mobility Assist Device Used Yes (1 pt) Score/Fall Risk Level 3 or more points = High Risk Oriented to surroundings, Maintained a safe environment, Educated pt \T\ family on fall prevention, incl call for assistance when getting out of bed, Hourly rounding (assess needs \T\ fall precautionary measures) done, Utilized family, sitter, or virtual sap basis as indicated. Abuse screen: Denies threats or abuse. Nutritional screening: No deficits noted. Tuberculosis screening: No symptoms or risk factors identified. Assessment: 17:05 General: Appears uncomfortable, Behavior is calm, cooperative, appropriate for age. ll1 Pain: Complains of pain in right arm Quality of pain is described as aching. Neuro: No deficits noted. Cardiovascular: No deficits noted. Respiratory: No deficits noted. Musculoskeletal: Reports pain in right arm. Musculoskeletal: Circulation, motion, and sensation intact. Capillary refill < 3 seconds. 17:30 Reassessment: No changes from previously documented assessment. Patient and/or family ll1 updated on plan of care and expected duration. Pain level reassessed. 17:53 Reassessment: No changes from previously documented assessment. Patient and/or family ll1 updated on plan of care and expected duration. Pain level reassessed. Patient is alert, oriented x 3, equal unlabored respirations, skin warm/dry/pink. 18:50 Reassessment: No changes from previously documented assessment. Patient and/or family ll1 updated on plan of care and expected duration. Pain level reassessed. Patient is alert, oriented x 3, equal unlabored respirations, skin warm/dry/pink. 19:40 General: notified provider . Pain: Complains of pain in Right shoulder Aggravated by aa9 increased activity. Vital Signs: 16:58 BP 167 / 81; Pulse 90; Resp 16; Temp 94.5; Pulse Ox 98% on R/A; Weight 70.31 kg; Height iw 5 ft. 3 in. (160.02 cm); Pain 10/10; 17:28 Pulse 90; Resp 17; Temp 97.3; Pulse Ox 98% ; ll1 19:30 BP 159 / 90; Pulse 91; Resp 13; Pulse Ox 98% on R/A; aa9 20:00 BP 151 / 95; Pulse 93; Resp 21; Pulse Ox 95% ; vc1 21:00 BP 143 / 67; Pulse 96; Resp 13; Pulse Ox 95% on R/A; vc1 21:45 BP 141 / 87; Pulse 90; Resp 12; Pulse Ox 97% ; vc1 16:58 Body Mass Index 27.46 (70.31 kg, 160.02 cm) ED Course: 16:54 Patient arrived in ED. eb 16:55 Fiilppo Turner MD is Attending Physician. rt 16:57 iDann Kauffman, RN is Primary Nurse. ll1 16:57 Arm band placed on Patient placed in an exam room, on a stretcher. ll1 17:00 Triage completed. iw 17:08 Lactate w/ 2H reflex if indic. Sent. ll1 17:08 Inserted saline lock: 22 gauge in left antecubital area, using aseptic technique. Blood ll1 collected. 17:21 Chest Single View XRAY In Process Unspecified. EDMS 17:21 Shoulder Left (2 View) XRAY In Process Unspecified. EDMS 17:21 Shoulder Right (2 View) XRAY In Process Unspecified. EDMS 17:30 Patient has correct armband on for positive identification. Bed in low position. Call ll1 light in reach. Side rails up X2. Client placed on continuous cardiac and pulse oximetry monitoring. NIBP monitoring applied. cafeteria monitor on. 19:24 Ted Martin MD is Hospitalizing Provider. rt 19:29 Primary Nurse role handed off by Diann Kauffman, ERIK wm 22:57 Kim Monsalve RN is Primary Nurse. vc1 23:59 No provider procedures requiring assistance completed. Patient admitted, IV remains in vc1 place. Administered Medications: 17:28 Drug: NS 0.9% 1000 ml Route: IV; Rate: 1000 ml; Site: left antecubital; ll1 19:02 Follow up: Response: No adverse reaction; IV Status: Completed infusion; IV Intake: ll1 1000ml 17:50 Drug: Zofran (Ondansetron) 4 mg Route: IVP; Site: left antecubital; ll1 21:12 Follow up: Response: No adverse reaction aa9 17:52 Drug: morphine 4 mg {Note: pain 10/10, RASS 0.} Route: IVP; Infused Over: 4 mins; Site: ll1 left antecubital; 21:12 Follow up: Response: No adverse reaction aa9 Medication: 17:30 VIS not applicable for this client. ll1 Intake: 19:02 IV: 1000ml; Total: 1000ml. ll1 Outcome: 19:24 Decision to Hospitalize by Provider. rt 23:59 Admitted to Med/surg accompanied by tech, via stretcher, room 216, Report called to vc ERIK Dooley 23:59 Condition: good 23:59 Instructed on the need for admit. 08/13 00:01 Patient left the ED. vc1 Signatures: Dispatcher [employer] Mirela Meyers RN RN iw Botello, Elizabeth eb Lewis, Lynsay, RN RN ll1 Luz Matamoros Vanessa, RN RN vc1 Lisa Collins RN RN aa9 Filippo Turner MD MD rt
--- NOTE | 2022-08-12 19:25 | EDPHYS ---
Physician Documentation [facility] Name: Mackenzie Cutler Age: 81 yrs Sex: Female : 1940 Arrival Date: 08/12/2022 Time: 16:54 Bed 7 Private MD: ED Physician Filippo Turner HPI: 08/12 17:22 This 81 yrs old Female presents to ER via EMS with complaints of Fall Injury. rt 17:22 Patient presents to the ED following mechanical fall at about 9 AM. Patient states that rt her walker slid out. She states that she fell onto her right shoulder. Patient is adamant that she did not hit her head. She reports pain both of her shoulders. Patient has been unable to get up since then, was found by her daughter on the ground. EMS noted that she was hypothermic to about 94 degrees. She denies other acute complaints at this time. Symptoms are moderate severity, no other aggravating alleviating factors. Pain is aching nature, nonradiating.. Historical: - Allergies: 16:57 No Known Allergies; ll1 - PMHx: 16:57 Dementia; diabetes mellitus; Hypertensive disorder; ll1 - Immunization history:: Adult Immunizations up to date. - Social history:: Smoking status: Patient denies any tobacco usage or history of. - Family history:: not pertinent. ROS: 17:22 Constitutional: Negative for fever, chills, and weight loss, Eyes: Negative for injury, rt pain, redness, and discharge, Cardiovascular: Negative for chest pain, palpitations, and edema, Respiratory: Negative for shortness of breath, cough, wheezing, and pleuritic chest pain, Abdomen/GI: Negative for abdominal pain, nausea, vomiting, diarrhea, and constipation, Skin: Negative for injury, rash, and discoloration, Neuro: Negative for headache, weakness, numbness, tingling, and seizure, Psych: Negative for depression, anxiety, suicide ideation, homicidal ideation, and hallucinations. 17:22 MS/extremity: Positive for pain, tenderness. Exam: 17:22 Constitutional: This is a well developed, well nourished patient who is awake, alert, rt and in no acute distress. Head/Face: Normocephalic, atraumatic. Chest/axilla: Normal chest wall appearance and motion. Nontender with no deformity. No lesions are appreciated. Cardiovascular: Regular rate and rhythm with a normal S1 and S2. No gallops, murmurs, or rubs. Normal PMI, no JVD. No pulse deficits. Respiratory: Lungs have equal breath sounds bilaterally, clear to auscultation and percussion. No rales, rhonchi or wheezes noted. No increased work of breathing, no retractions or nasal flaring. Abdomen/GI: Soft, non-tender, with normal bowel sounds. No distension or tympany. No guarding or rebound. No evidence of tenderness throughout. Skin: Warm, dry with normal turgor. Normal color with no rashes, no lesions, and no evidence of cellulitis. Neuro: Awake and alert, GCS 15, oriented to person, place, time, and situation. Cranial nerves II-XII grossly intact. Motor strength 5/5 in all extremities. Sensory grossly intact. Cerebellar exam normal. Normal gait. Psych: Awake, alert, with orientation to person, place and time. Behavior, mood, and affect are within normal limits. 17:22 ECG was reviewed by the Attending Physician. 17:22 Musculoskeletal/extremity: Mild tenderness to the right shoulder, no swelling, deformity noted, pulses, motor, sensation intact. Patient is able to range both of her hips without difficulty, pain.. Vital Signs: 16:58 BP 167 / 81; Pulse 90; Resp 16; Temp 94.5; Pulse Ox 98% on R/A; Weight 70.31 kg; Height iw 5 ft. 3 in. (160.02 cm); Pain 10/10; 17:28 Pulse 90; Resp 17; Temp 97.3; Pulse Ox 98% ; ll1 19:30 BP 159 / 90; Pulse 91; Resp 13; Pulse Ox 98% on R/A; aa9 20:00 BP 151 / 95; Pulse 93; Resp 21; Pulse Ox 95% ; vc1 21:00 BP 143 / 67; Pulse 96; Resp 13; Pulse Ox 95% on R/A; vc1 21:45 BP 141 / 87; Pulse 90; Resp 12; Pulse Ox 97% ; vc1 16:58 Body Mass Index 27.46 (70.31 kg, 160.02 cm) iw MDM: 16:56 Patient medically screened. rt 19:24 Differential diagnosis: Rhabdo, fracture, dislocation, renal failure, sepsis. Data rt reviewed: vital signs, nurses notes, lab test result(s), EKG, radiologic studies. Consideration of Admission/Observation Patient was admitted/placed on observation. Management of patient was discussed with the following: Primary Care Provider: Agrees to admit. I considered the following discharge prescriptions or medication management in the emergency department Medications were administered in the Emergency Department. See MAR. Independent interpretation of the following test(s) in the Emergency Department X-Ray: My interpretation is Right proximal humerus fracture. Test considered but Not performed: CT: Denies head trauma, CT scan not indicated. Historians other than the Patient: Daughter/Son: Discussed with family. External Records Reviewed: Outpatient labs: Creatinine at baseline. Care significantly affected by the following chronic conditions: Diabetes, Hypertension. Counseling: I had a detailed discussion with the patient and/or guardian regarding: the historical points, exam findings, and any diagnostic results supporting the discharge/admit diagnosis, lab results, radiology results, the need for further work-up and treatment in the hospital. 08/12 16:59 Order name: CBC with Diff; Complete Time: 18:00 rt 08/12 16:59 Order name: CMP; Complete Time: 18:00 rt 08/12 16:59 Order name: Magnesium; Complete Time: 18:00 rt 08/12 16:59 Order name: Lactate w/ 2H reflex if indic.; Complete Time: 17:38 rt 08/12 16:59 Order name: CPK; Complete Time: 18:00 rt 08/12 16:59 Order name: TSH; Complete Time: 18:00 rt 08/12 16:59 Order name: Chest Single View XRAY rt 08/12 16:59 Order name: Shoulder Left (2 View) XRAY; Complete Time: 17:38 rt 08/12 16:59 Order name: Shoulder Right (2 View) XRAY; Complete Time: 17:38 rt 08/12 16:59 Order name: Urinalysis W/Microscopic; Complete Time: 19:13 rt 08/12 19:02 Order name: Urine Dipstick-Ancillary; Complete Time: 19:13 EDMS 08/12 19:37 Order name: SARS-COV-2 Antigen Rapid 08/12 20:31 Order name: SARS-COV-2 Antigen Rapid EDUT 08/12 20:38 Order name: Lactate Sepsis 2 HR Follow-up EDMS 08/12 16:59 Order name: EKG; Complete Time: 17:00 rt 08/12 16:59 Order name: EKG - Nurse/Tech; Complete Time: 16:59 rt 08/12 16:59 Order name: Urine Dipstick-Ancillary (obtain specimen); Complete Time: 19:02 rt 08/12 19:20 Order name: Shoulder Immobilizer; Complete Time: 00:00 rt EC:22 Rate is 91 beats/min. Rhythm is regular, A fib with No ectopy. QRS [place] is Normal. QRS rt interval is normal. QT interval is prolonged at 511 msec. No Q waves. T waves are Normal. No ST changes noted. Interpreted by me. Administered Medications: 17:28 Drug: NS 0.9% 1000 ml Route: IV; Rate: 1000 ml; Site: left antecubital; ll1 19:02 Follow up: Response: No adverse reaction; IV Status: Completed infusion; IV Intake: ll1 1000ml 17:50 Drug: Zofran (Ondansetron) 4 mg Route: IVP; Site: left antecubital; ll1 21:12 Follow up: Response: No adverse reaction aa9 17:52 Drug: morphine 4 mg {Note: pain 10/10, RASS 0.} Route: IVP; Infused Over: 4 mins; Site: ll1 left antecubital; 21:12 Follow up: Response: No adverse reaction aa9 Disposition Summary: 08/12/22 19:24 Hospitalization Ordered Hospitalization Status: Observation rt Provider: Ted Martin rt Location: Telemetry/MedSurg (observation) rt Condition: Stable rt Problem: new rt Symptoms: have improved rt Bed/Room Type: Standard rt Room Assignment: 216(08/12/22 21:04) mw Diagnosis - Fall from standing rt - Dehydration rt - Lactic acidosis rt - Right proximal humerus fracture rt Discharge Instructions: - Discharge Summary Sheet ll1 Forms: - SBAR form ll1 - Medication Reconciliation Form rt Signatures: Dispatcher [employer] EDMS Ama Chavez RN RN mw Williams, Irene, RN RN iw Lewis, Lynsay, RN RN ll1 Filippo Turner MD MD rt Lisa Collins RN aa9 Corrections: (The following items were deleted from the chart) 21:04 19:24 rt mw
--- NOTE | 2022-08-12 20:27 | RAD REPORT ---
EXAM DESCRIPTION: RAD - Chest Single View - 08/12/2022 5:19 pm CLINICAL HISTORY: weakness COMPARISON: Chest Single View dated 03/23/2021; Chest Single View dated 07/14/2019; Chest Single View dated 08/22/2017 FINDINGS: Lines: None. Lungs: No evidence of edema or pneumonia. Linear scarring at the left lung base and mid lung. Pleural: No significant pleural effusions or pneumothorax. Cardiac: The heart size is within normal limits. Mediastinum: Within normal limits. Bones: Right proximal humerus fracture. Other: None IMPRESSION: No acute cardiopulmonary disease.
[2022-08-12 20:31] LABS: SARS-CoV-2 Antigen Rapid Res Negative (Negative)
[2022-08-12] MEDS ORDERED: ONDANSETRON 4 MG/2 ML VIAL IV PRN (22:38)
[2022-08-12] MEDS: NA CHLORIDE 0.9% 1,000 ML IV SCH (22:38)
[2022-08-12] MEDS: MORPHINE 2 MG/ML SYR IV PRN (22:56)
[2022-08-13 00:29] VITALS: O2SAT 97
[2022-08-13] MEDS: MORPHINE 2 MG/ML SYR IV PRN ×3 (01:03→08:02)
[2022-08-13 04:33] LABS: Absolute Lymphocytes (CBC) 1.9 K/uL (0.7-4.9); Hematocrit 39.2 % (36.0-45.0); Lymphocytes % 24.7 % (15.3-44.8); MCV 94.6 fL (80-100); MPV 9.1 fL (7.6-11.3); RBC Red Blood Cell Count 4.14 M/uL (3.86-4.86)
[2022-08-13 04:59] LABS: Albumin 2.4 g/dL (3.4-5.0); Bilirubin Total 1.3 mg/dL (0.2-1.0); Potassium 4.2 mmol/L (3.5-5.1); Protein, Total 6.7 g/dL (6.4-8.2)
[2022-08-13] MEDS: NA CHLORIDE 0.9% 1,000 ML IV SCH ×3 (05:51→20:35)
[2022-08-13 07:33] VITALS: BMI 26.7
[2022-08-13] MEDS: ENOXAPARIN 40 MG/0.4 ML SQ SCH (08:59)
[2022-08-13] MEDS ORDERED: PNEUMOCOCCAL VACCINE 0.5 ML IMVAC ONE (10:00)
[2022-08-13 11:57] LABS: Absolute Lymphocytes (CBC) 1.8 K/uL (0.7-4.9); Hematocrit 34.1 % (36.0-45.0); Lymphocytes % 26.5 % (15.3-44.8); MPV 9.2 fL (7.6-11.3); RBC Red Blood Cell Count 3.62 M/uL (3.86-4.86)
[2022-08-13 12:07] LABS: Protime INR 1.47
[2022-08-13 12:20] LABS: Bilirubin Total 1.2 mg/dL (0.2-1.0); Magnesium 1.7 mg/dL (1.6-2.4); Potassium 3.5 mmol/L (3.5-5.1); Protein, Total 5.4 g/dL (6.4-8.2)
[2022-08-13 13:46] LABS: Platelet Estimate DECR; White Blood Cell Scan OK (OK)
[2022-08-13 13:47] LABS: Blood Morphology Comment NOT SEEN (NOT SEEN)
--- NOTE | 2022-08-13 14:21 | P.HP ---
Certification for Inpatient Patient admitted to: Observation With expected LOS: <2 Midnights Practitioner: I am a practitioner with admitting privileges, knowledge of patient current condition, hospital course, and medical plan of care. Services: Services provided to patient in accordance with Admission requirements found in Title 42 Section 412.3 of the Code of Federal Regulations Patient History Date of Service: 08/13/22 Reason for admission: Status post fall; altered mental status History of Present Illness: Patient is an 81-year-old female who came to the hospital with fall and altered mental status. She had been at home when her daughter had left to go to work in the morning. Somewhere between 9-4 she had fallen in her daughter when she got home after 4 had call family to help her get up. EMS was notified and they brought her into the emergency room. The daughter states she was following some commands but she was also very confused. Her mother has been very forgetful lately and that has been concerning for her. They are planning on going to see the family doctor regarding this as well. Patient was seen in the emergency room and found to have lactic acidosis. Multiple imaging studies revealed right proximal humerus fracture. Patient was also severely dehydrated. CPK was normal. Decision was made to admit the patient to the hospital for further evaluation. Patient did not have CT imaging of the head. We will order this and assess her for stroke or any other causes of altered mental status. Allergies No Known Allergies Allergy (Verified 06/15/21 23:15) Home Medications: Memantine HCl 10 mg PO BID 06/15/21 Spironolact/Hydrochlorothiazid [Aldactazide 25-25 Tablet] 1 each PO DAILY 08/13/22 oxyBUTYnin chloride [Oxybutynin Chloride] 5 mg PO BID 08/13/22 - Past Medical/Surgical History Has patient received pneumonia vaccine in the past: No Diabetic: No -: Hypertension -: Osteoporosis -: Diverticulitis -: Dementia -: Hysterectomy -: Cholecystectomy -: Bladder surgery -: Rectal surgery - colon tear (2017) -: total hip replacement - Family History Brother Medical History: Diabetes Sister Medical History: Diabetes Father Medical History: Heart disease Notes: Mother Medical History: Heart disease Notes: - Social History Smoking Status: Never smoker Alcohol use: No CD- Drugs: No Caffeine use: Yes Place of Residence: Home Review of Systems 10-point ROS is otherwise unremarkable Physical Examination - Vital Signs Temperature: 97.9 F Blood Pressure: 95/63 Pulse: 88 Respirations: 14 Pulse Ox (%): 93 - Physical Exam General: Alert, In no apparent distress, Oriented x3 HEENT: Atraumatic, PERRLA, Mucous membr. moist/pink, EOMI, Sclerae nonicteric Neck: Supple, 2+ carotid pulse no bruit, No LAD, Without JVD or thyroid abnormality Respiratory: Clear to auscultation bilaterally, Normal air movement Cardiovascular: Regular rate/rhythm, Normal S1 S2, No murmurs Gastrointestinal: Normal bowel sounds, Soft and benign, Non-distended, No tenderness Musculoskeletal: No clubbing, No swelling, No tenderness Integumentary: No rashes Neurological: Normal gait, Normal speech, Normal strength at 5/5 x4 extr, Normal tone, Sensation intact, Cranial nerves 3-12 intact, Normal affect Lymphatics: No axilla or inguinal lymphadenopathy - Studies Laboratory Data (last 24 hrs) 08/12/22 17:05: Sodium 139, Potassium 3.7, BUN 26 H, Creatinine 1.21 H, Glucose 175 H, Magnesium 2.2, Total Bilirubin 1.3 H, AST 34, ALT 29, Alkaline Phosphatase 107 08/12/22 17:05: WBC 8.50, Hgb 14.6, Hct 42.7, Plt Count 110 L Assessment & Plan - Problems (Diagnosis) (1) Lactic acidosis Current Visit: Yes Status: Acute (2) AMS (altered mental status) Current Visit: Yes Status: Acute (3) HTN (hypertension) Current Visit: No Status: Acute (4) UTI (urinary tract infection) Current Visit: No Status: Acute (5) Alzheimer disease Current Visit: No Status: Chronic - Plan Plan: 1. Gentle hydration 2. Repeat lactic acid level 3. CT of the brain 4. Outpatient follow-up with Dr. Merchant as he is fixed her hip in the past 5. Monitor LFTs; coagulation profile elevated and bilirubin elevated. 6. Check ammonia level 7. Anticipate discharge over the next 24 to 48 hours. Discharge Plan: Home Plan to discharge in: 24 Hours - Advance Directives Does patient have a Living Will: No Does patient have a Durable POA for Healthcare: No - Code Status/Comfort Care Code Status Assessed: Yes Code Status: Full Code Critical Care: No Time Spent Managing PTS Care (In Minutes): 45
--- NOTE | 2022-08-13 16:07 | RAD REPORT ---
EXAM DESCRIPTION: CT - Head Brain Wo Cont - 08/13/2022 3:59 pm CLINICAL HISTORY: AMS COMPARISON: <Comparisons> TECHNIQUE: All CT scans are performed using dose optimization technique as appropriate and may inclu de automated exposure control or mA/KV adjustment according to patient size. FINDINGS: No intracranial hemorrhage, hydrocephalus or extra-axial fluid collection.No areas of brai n edema or evidence of midline shift. Chronic small vessel ischemic changes. The paranasal sinuses and mastoids are clear. The calvarium is intact. IMPRESSION: No acute intracranial abnormality.
[2022-08-13] MEDS: HYDROCODONE/APAP 5/325 MG TAB PO PRN (16:33)
[2022-08-14] MEDS: HYDROCODONE/APAP 5/325 MG TAB PO PRN ×2 (00:18→06:02)
[2022-08-14] MEDS: NA CHLORIDE 0.9% 1,000 ML IV SCH (06:01)
[2022-08-14 07:39] LABS: Absolute Lymphocytes (CBC) 1.9 K/uL (0.7-4.9); Hematocrit 34.7 % (36.0-45.0); Lymphocytes % 34.5 % (15.3-44.8); MCV 93.9 fL (80-100); MPV 9.3 fL (7.6-11.3)
[2022-08-14] MEDS: ENOXAPARIN 40 MG/0.4 ML SQ SCH (07:39)
--- NOTE | 2022-08-14 07:46 | RAD REPORT ---
EXAM DESCRIPTION: US - Abdomen Exam Complete - 08/14/2022 6:47 am CLINICAL HISTORY: Abdominal pain. cirrhosis COMPARISON: No comparisons FINDINGS: Liver size is small with a heterogenous echotexture. No focal liver lesions or intrahepati c biliary dilatation is seen. Cholecystectomy. Common bile duct is normal in caliber measuring 3 mm. Both kidneys are normal in size, shape and echotexture. No hydronephrosis, focal lesion of concern or perinephric fluid. The spleen is normal in size measuring 9 cm. The pancreas and aorta are obscured by bowel gas. The visualized aspects of the IVC are grossly normal. IMPRESSION: Small liver size is present with heterogenous echotexture compatible with underlying cir rhosis. Cholecystectomy.
[2022-08-14 07:51] LABS: Protime INR 1.33
[2022-08-14 08:18] LABS: Albumin 2.3 g/dL (3.4-5.0); Bilirubin Total 1.3 mg/dL (0.2-1.0); Potassium 3.9 mmol/L (3.5-5.1); Protein, Total 6.3 g/dL (6.4-8.2); Thyroid Stimulating Hormone 1.78 uIU/mL (0.358-3.740)
[2022-08-14 08:39] VITALS: BP 138/57; TEMP 98.3
== END 2022-08-14 12:02 | disposition home or self-care (01) ==
LOC: ER 16:47 → ERHOLD 19:20 → 2ND 21:10
PROVIDERS: ADMIT Internal Medicine; ATTEND Internal Medicine
DX: R41.82 Altered mental status, unspecified (principal); E87.20 Acidosis, unspecified; E86.0 Dehydration; N39.0 Urinary tract infection, site not specified; I10 Essential (primary) hypertension; G30.9 Alzheimer's disease, unspecified; S42.254A Nondisplaced fracture of greater tuberosity of right humerus, initial encounter for closed fracture; W18.30XA Fall on same level, unspecified, initial encounter; Y93.9 Activity, unspecified; Y92.099 Unspecified place in other non-institutional residence as the place of occurrence of the external cause; Z20.822 Contact with and (suspected) exposure to COVID-19; Z23 Encounter for immunization
CPT/HCPCS: 96361; 85025 ×4; 81001; 36415 ×2; 82140; 83735 ×3; 82550; 85610 ×2; 85044; 82947 ×3; 83605 ×3; 85730 ×2; 84443 ×2; 81003; 84484; 84439; 82607; 83690; 83540; 80053 ×4; 84145; 83880; 82747; 70450; 71045; 73030 ×2; 76700; 96375; 96374; 99285; 87811; J1650 ×2; J2270 ×4; J7030 ×4; J2405; 93005; G0378

== ENCOUNTER 2022-08-25 21:32 | Observation (INO) | payer OTHER ==
--- OUTSIDE RECORDS SUMMARY | 2022-08-25 21:44 | XMS REPORT | Continuity of Care Document ---
:1940 [facility] t Address [address] [place] [address] Care Team Providers Name Role Phone SANTIAGO, RAFAEL Primary Care Physician Unavailable MORIS GOLDMAN Attending Clinician Unavailable Moris Deshpande Attending Clinician Doctor Unassigned, [place] Attending Clinician Unavailable Shonda MILLS, Boy Ramirez Attending Clinician Riky VALENCIA, Mary Lou Araiza Attending Clinician Unavailable Carla Gottlieb Attending Clinician Shahzad Garber MD Attending Clinician NATHANIEL ALBA Attending Clinician Unavailable RACHELLE BURT Attending Clinician Unavailable Shahzad Garber MD Admitting Clinician YESSENIA GARZA Admitting Clinician Unavailable RACHELLE BURT Admitting Clinician Unavailable Payers Payer Name Policy Type Policy Number Effective Date Expiration Date Gogo smiley [facility] MEDIC[facility] [id number] 2022 ADVANTAGE CHOICE 00:00:00 (PPO) Problems Condition Condition Condition Status Onset Resolution Last Treating Co mments Source Name Details Category Date Date Treatment Clinician Date Dizziness Dizziness Disease Active Uni vers 8-16 ity of 00:00: [address] Essential Essential Disease Active Uni vers hypertensi hypertensi 8-16 it y of on on 00:00: [place] 00 Medical Branch UTI UTI Disease Active Univers (urinary (urinary 8-16 ity of tract tract 00:00: [place] infection) infection) 00 In dical Branch Closed Closed Disease Active Univers [...] Active Univers ALLERGIE Class ity of S [facility] [place] [facility] NO KNOWN Allergy Active [facility] ALLERGIE S Social History Social Habit Start Date Stop Date Quantity Comments Source Exposure to 2022-08-07 2022-08-17 Not sure University SARS-CoV-2 00:00:00 13:50:00 [facility] (event) Branch Alcohol intake 2018-02-19 2018-02-[address] [facility] 00:[facility]:00 00:00:00 non-drinker of Medical Ce nter alcohol (finding) Tobacco use and 2018-02-18 2018-02-[address] [facility] kes exposure 00:00:00 00:00:00 [facility] Center Sex Assigned At 1940-08-191940-08-19 OZZY Quintanilla 00:00:00 00:00:00 Medical Center Smoking Status Start Date Stop Date Source Never smoked tobacco [facility] Medications Ordered Filled Start Stop Current Ordering Indication Dosage Frequency Signature Comments Components Source Medication Medication Date Date Medication? Clinician (SIG) Name Name memantine 0 Yes 10mg Take 10 mg Un deborah 10 mg 2-23 by mouth 2 ity of tablet 13:54: (two) [place] 30 times Medical daily. Branch losartan 50 2021-0 Yes 50mg Take 50 mg Univers mg tablet 2-23 by mouth ity of 13:54: daily. [address] PARoxetine 2021-0 Yes 10mg Take 10 mg U nivers 10 mg 2-23 by mouth ity of tablet 13:54: daily. [address] memantine 2021-0 Yes 10mg Take 10 mg Un deborah 10 mg 2-23 by mouth 2 ity of tablet 13:54: (two) [place] 30 times Medical daily. Branch losartan 50 2021-0 Yes 50mg Take 50 mg Univers mg tablet 2-23 by mouth ity of 13:54: daily. [address] PARoxetine 2021-0 Yes 10mg Take 10 mg U nivers 10 mg 2-23 by mouth ity of tablet 13:54: daily. [address] memantine 2021-0 Yes 10mg Take 10 mg Un deborah 10 mg 2-23 by mouth 2 ity of tablet 13:54: (two) [place] 30 times Medical daily. Branch losartan 50 2021-0 Yes 50mg Take 50 mg Univers mg tablet 2-23 by mouth ity of 13:54: daily. [address] PARoxetine 2021-0 Yes 10mg Take 10 mg U nivers 10 mg 2-23 by mouth ity of tablet 13:54: daily. [address] memantine 2021-0 Yes 10mg Take 10 mg Un deborah 10 mg 2-23 by mouth 2 ity of tablet 13:54: (two) [place] 30 times Medical daily. Branch losartan 50 2021-0 Yes 50mg Take 50 mg Univers mg tablet 2-23 by mouth ity of 13:54: daily. [address] PARoxetine 2021-0 Yes 10mg Take 10 mg U nivers 10 mg 2-23 by mouth ity of tablet 13:54: daily. [address] memantine 0 Yes 10mg Take 10 mg Un deborah 10 mg 8-18 by mouth 2 ity of tablet 18:23: (two) [place] [id number] times Medical daily. Branch losartan 50 2020-0 Yes 50mg Take 50 mg Univers mg tablet 8-18 by mouth ity of 18:23: daily. [address] PARoxetine 0 Yes 10mg Take 10 mg U nivers 10 mg 8-18 by mouth ity of tablet 18:23: daily. [address] memantine 0 Yes 10mg Take 10 mg Un deborah 10 mg 8-18 by mouth 2 ity of tablet 18:23: (two) [address] Medical daily. Branch losartan 50 0 Yes 50mg Take 50 mg Univers mg tablet 8-18 by mouth ity of 18:23: daily. [address] PARoxetine 0 Yes 10mg Take 10 mg U nivers 10 mg 8-18 by mouth ity of tablet 18:23: daily. [address] memantine 0 Yes 10mg Take 10 mg Un deborah 10 mg 8-18 by mouth 2 ity of tablet 18:23: (two) [place] [address] times Medical daily. Branch losartan 50 0 Yes 50mg Take 50 mg Univers mg tablet 8-18 by mouth ity of 18:23: daily. [address] PARoxetine 0 Yes 10mg Take 10 mg U nivers 10 mg 8-18 by mouth ity of tablet 18:23: daily. [address] lisinopril 2020-0 Yes 20mg QD Take [address] (PRINIVIL,Z 1-29 by mouth Luke s ESTRIL) 20 11:28: daily. Medic al MG tablet 17 [place] ibandronate 2020-0 Yes 150mg Take [address] (BONIVA) 1-29 mg [facility] 150 mg 11:28: mouth Medical tablet 17 every 30 Center (thirty) days Take in AM with glass of water prior to food, don't lie down for 30 minutes. . lisinopril 2020-0 Yes 20mg QD Take [address] (PRINIVIL,Z 1-29 by mouth Luke s ESTRIL) 20 11:28: daily. Medic al MG tablet 17 [place] ibandronate 2020-0 Yes 150mg Take [address] (BONIVA) 1-29 mg by [facility] 150 mg 11:28: mouth Medical tablet 17 every 30 Center (thirty) days Take in AM with glass of water prior to food, don't lie down for 30 minutes. . polyethylen 2018-0 Yes 17g Q.5D Take [address] e glycol 8-21 by mouth 2 [facility] (MIRALAX) 00:00: (two) Medical 17 00 times Center gram/dose daily. powder polyethylen 2018-0 Yes 17g Q.5D Take [address] e glycol 8-21 by mouth 2 [facility] (MIRALAX) 00:00: (two) Medical 17 00 times Center gram/dose daily. powder Vital Signs Vital Name Observation Time Observation Value Comments Source Body height 2022-08-17 19:58:00 154.9 cm [facility] Body weight 2022-08-17 19:58:00 68.493 kg [facility] BMI 2022-08-17 19:58:00 28.53 kg/m2 [facility] Body height 2021-04-05 19:30:00 160 cm [facility] Body weight 2021-04-05 19:30:00 75.751 kg [facility] BMI 2021-04-05 19:30:00 29.58 kg/m2 [facility] Procedures Procedure Date / Time Performed Performing Clinician Sour e CONSENT/REFUSAL FOR 2022-08-17 19:51:25 Doctor Unassigned, No [facility] DIAGNOSIS AND [facility] Branch TREATMENT ASSIGNMENT OF BENEFITS 2022-08-17 19:51:00 Doctor Unassigned, No [facility] Plan of Care Planned Activity Planned Date [...] DXA [facility] Test 00:00:00 SCAN] [facility] Encounters Start End Encounter Admission Attending Care Care Encounter Source Date/Time Date/Time Type Type Clinicians Facility Department ID 2022-09-23 2022-09-23 Outpatient Brea GOLDMAN [facility] [id number] Univers 09:30:00 09:30:00 MORIS santoro [facility] 2022-08-17 2022-08-17 [facility] [id number] Univers 14:00:00 14:15:00 Visit [facility] [id number] bradly [place] 4.2.7.2.686 [place] as TEODORO?BLEA [id number] [address] MEDICAL OFFICE BUILDING 2022-08-17 2022-08-17 Outpatient Brea GOLDMAN [facility] [id number] Univers 14:00:00 14:00:00 MORIS santoro [facility] 2022-08-17 2022-08-17 Orders Doctor MARVA 1.2.840.114 [id number] Univers 00:00:00 00:00:00 Only Unassigned, DIONICIO 350.1.13.10 ity of [place] [facility] 4.2.7.2.686 [place] as [id number] [address] 2022-08-17 2022-08-17 Telephone [facility] [id number] Univers 00:00:00 00:00:00 Boy Ramirez [email or web address] 350.1.13.10 it y [facility] 4.2.7.2.686 [place] as TEODORO?BLEA [id number] In heather MEJIA [address] [facility] OFFICE [facility] 2021-04-19 2021-04-19 Telephone [facility] 1.2.840.114 [id number] Univers 00:00:00 00:00:00 Boy Ramirez [employer] 350.1.13.10 it y of [place] 4.2.7.2.686 Forrest as Teodoro?Blea [id number] In heather mejia 198 [facility] Office [facility] 2021-04-05 2021-04-05 [facility] 1.2.840.114 [id number] Univers 14:30:00 23:59:00 Encounter Boy Velasco 350.1.13.10 ity of [place] 4.2.7.2.686 [place] as Teodoro?Blea [id number] In heather mejia 809 [facility] 2021-04-05 2021-04-05 Outpatient Brea GOLDMAN [facility] [id number] Univers 16:15:00 16:15:00 MORIS itshanell [facility] 2021-04-05 2021-04-[address] [facility] 1.2.840. 114 [id number] Univers 14:14:04 15:04:03 Visit Moris Goldman [facility] 350.1.13.10 ity of [place] 4.2.7.2.686 [place] as Teodoro?Blea [id number] In heather mejia [address] [place] [address] Office [facility] 2021-04-05 2021-04-05 Outpatient [facility] [id number] Univers 13:30:00 13:30:00 MORIS itshanell [facility] 2021-04-05 2021-04-05 Telephone Shonda [facility] 1.2.840.114 [id number] Univers 00:00:00 00:00:00 Boy Ramirez Health 350.1.13.10 it y of [place] 4.2.7.2.686 [place] as Teodoro?Blea [id number] In heather mejia [address] [place] [address] Office [facility] 2021-03-05 2021-03-05 Outpatient Bre[facility] [id number] Univers 08:00:00 08:00:00 MORIS santoro [facility] 2021-03-05 2021-03-05 Office [facility] 1.2.840.114 [id number] Univers 07:40:17 07:55:[address] [facility] 350.1.13.10 it y of [place] 4.2.7.2.686 [place] as Teodoro?Blea [phone] In eloydavid williamson[address] Office [facility] 2021-03-05 2021-03-05 Orders Doctor MARVA 1.2.840.114 [id number] Univers 00:00:00 00:00:00 Only Unassigned, DIONICIO 350.1.13.10 ity of [place] [facility] 4.2.7.2.686 [place] as [id number] [address] 2021-03-05 2021-03-05 Orders Doctor MARVA 1.2.840.114 [id number] Univers 00:00:00 00:00:00 Only Unassigned, DIONICIO 350.1.13.10 ity of [place] [facility] 4.2.7.2.686 [place] as [id number] [address] 2021-03-04 2021-03-04 Telephone [facility] 1.2.840.114 [id number] Univers 00:00:00 00:00:00 Boy Ramirez Health 350.1.13.10 it y of [place] 4.2.7.2.686 [place] as Teodoro?Blea [id number] In dicdavid williamson[address] Office Building 2021-03-03 2021-03-03 Outpatient Brea SUSI [facility] [id number] Univers 13:00:00 13:00:00 MORIS ity [facility] 2021-02-18 2021-02-18 Transition Steven Lan 1.2.840.114 [id number] Univers 00:00:00 00:00:00 of Care Mary Lou Mullen 350.1.13.10 it y of [place]2.[place] [id number] [facility] 403 Branch 2021-02-14 2021-02-17 [facility] Carla Osorio [facility] 1.2.840.11 [id number] Univers 16:06:00 18:21:00 Encounter Jcarlos Jacielalesha [place] 350.1.13.10 ity [place].2.686 [place] [id number] [facility] [address] [place] 2021-02-14 2021-02-14 Emergency X [facility] ERT [id number] Univers 15:57:00 15:57:[facility] 2019-09[facility]09 2019-09-09 Outpatient [facility] [id number] [id number] [facility] 00:00:00 00:00:00 [id number] Results Test Description Test Time Test Comments Results Result Comments Source BLOOD CULTURE 2019-08-03 18:00:00 Test Item Value Reference Range Interpretation Comme nts CULTURE (BEAKER) (test code = 1095) No growth in 5 days BLOOD [id number] 18:00:00 Test Item Value Reference Range Interpretation Comments CULTURE (BEAKER) (test No growth in 5 days code = 1095) CBC W/PLT COUNT & AUTO [id number] 05:40:00 Test Item Value Reference Range Interpretation [...] = 2801) RAD, CHEST, 1 VIEW, NON [id number] 13:49:00Reason for exam:->feverShould this be performed at the bedside?->YesFINAL REPORT RAD, CHEST, 1 VIEW, NON DEPT INDICATION: fever COMPARISON: 2017 FINDINGS: Portable frontal view of the chest. IMPRESSION: Support Lines: None. Lungs and pleura: Basilar subsegmental atelectasis. Trace left effusion. No pneumothorax.Heart and mediastinum: Stable contours. Additional findings: None. Signed: JR Walsh Robert MDReport Verified Date/Time: 07/30/2019 13:49:45 Reading Location: [facility] Radiology Reading Room URINALYSIS W/ REFLEX URINE [id number] 09:47:00 Test Item Value Reference Range Interpretation [...] code = 516) SOURCE(BEAKER) (test code = 9295) [employer] Operator ID - [auto][employer] Operator ID - hankHEMOGLOBIN AND [id number] 04:38:00 Test Item Value Reference Range Interpretation Comments HEMOGLOBIN (BEAKER) (test code = 7.1 GM/DL 11.2-15.7 L 410) HEMATOCRIT (BEAKER) (test code = 21.5 % 34.1-44.9 L 411) [employer] Operator ID - [id number] W/PLT COUNT & AUTO [id number] 06:47:00 Test Item Value Reference Range Interpretation [...] (BEAKER) (test code = 2801) HEPATIC FUNCTION [id number] 06:37:00 Test Item Value Reference Range Interpretation [...] (test code = 18 U/L 6-55 347) [employer] Operator ID Jacky BENITEZ WBASIC METABOLIC [id number] 06:37:00 Test Item Value Reference Range Interpretation [...] S NOT APPLICABLE FOR DIALYSIS PATIEN TS. [employer] Operator ID Jacky BENITEZ WHEPATIC FUNCTION [id number] 16:45:00 Test Item Value Reference Range Interpretation [...] (test code = 18 U/L 6-55 347) [employer] Operator JOSE CARLOS FERNANDEZ WBASIC METABOLIC [id number] 16:45:00 Test Item Value Reference Range Interpretation [...] S NOT APPLICABLE FOR DIALYSIS PATIEN TS. [employer] Operator JOSE CARLOS FERNANDEZ WCBC W/PLT COUNT & AUTO [id number] 16:21:00 Test Item Value Reference Range Interpretation [...] (BEAKER) (test code = 2801) HEMOGLOBIN AND [id number] 19:00:00 Test Item Value Reference Range Interpretation Comments HEMOGLOBIN (BEAKER) (test code = 8.5 GM/DL 11.2-15.7 L 410) HEMATOCRIT (BEAKER) (test code = 25.9 % 34.1-44.9 L 411) [employer] Operator ID - [id number], CTA [id number] 18:32:00FINAL REPORT EXAM: CT, CTA of the [...] exclude infection. Mild cardiomegaly. Signed: Rebeka Malhotra [facility] Verified Date/Time: 07/27/2019 18:32:58 VITAMIN B12 AND [id number] 15:39:00 Test Item Value Reference Range Interpretation Comments VITAMIN B12 (BEAKER) (test code = < pg/mL 213-816 L 774) FOLATE (BEAKER) (test code = 362) 16.1 ng/mL >=7.0 [employer] Operator ID Jacky MENDOZA [id number] 15:30:00 Test Item Value Reference Range Interpretation Comments FERRITIN (BEAKER) (test code = 361) 22 ng/mL 5-275 [employer] Operator ID - KELLY JAH, TIBC, % SAT. (WITHOUT FERRITIN)2019-07-27 14:55:00 Test Item Value Reference Range Interpretation Comments IRON (BEAKER) (test code = 547) 56.0 ug/dL 40.0-160.0 TOTAL IRON BINDING CAPACITY 260 ug/dL 250-450 (BEAKER) (test code = 769) IRON % SATURATION (2) (BEAKER) 22 % 20-55 (test code = 2590) [employer] Operator ID - KELLY MHEPATIC FUNCTION [id number] 06:41:00 Test Item Value Reference Range Interpretation [...] (test code = 22 U/L 6-55 347) [employer] Operator ID - KELLY MBASIC METABOLIC [id number] 06:41:00 Test Item Value Reference Range Interpretation [...] S NOT APPLICABLE FOR DIALYSIS PATIEN TS. [employer] Operator ID - KELLY MHEPATITIS PANEL, [id number] 06:27:00 Test Item Value Reference Range Interpretation Comments HEPATITIS A IGM ANTIBODY (BEAKER) Nonreactive Nonreactive (test code = 498) HEPATITIS B CORE IGM ANTIBODY Nonreactive Nonreactive (BEAKER) (test code = 645) HEPATITIS C ANTIBODY (BEAKER) Nonreactive Nonreactive (test code = 367) HEPATITIS B SURFACE ANTIGEN (2) Nonreactive Nonreactive (BEAKER) (test code = 2585) [employer] Operator ID - KELLY MPROTHROMBIN [id number] 05:50:00 Test Item Value Reference Range Interpretation [...] mechanical heart valves.CBC W/PLT COUNT & AUTO [id number] 05:40:00 Test Item Value Reference Range Interpretation [...] PERCENT (BEAKER) (test code = 2801) TISSUE [id number] 15:34:00Surgical Pathology Report Case: [id number] Authorizing Provider: Lay Elizalde MD Collected: 02/19/2018 1637 Ordering Location: [address] Received: 02/20/2018 0812 Service Pathologist: Shashank Francis MD Specimens: A) - Polyp, NOS, Appendeceal orifice polyp with hot snare and Duraclip x1 B) - Polyp, Colon - Hepatic Flexure, Hepatic flexure polyp C) - Polyp, Colon - Sigmoid, Sigmoid colon polyp with hot snare and Duraclipx1 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 Signing Pathologist Direct Phone Line: [phone] signed by Shashank Francis MD on 02/20/2018 at 3:34 [id number] bleedingA. Appendiceal orifice polyp. B. Hepatic flexure [...] Specimen is entirely submitted in C1. DB/ew PERFORMED.[id number] 13:42:00 Test Item Value Reference Range Interpretation [...] L (test code = 2590) HEMOGLOBIN AND [id number] 12:16:00 Test Item Value Reference Range Interpretation Comments HEMOGLOBIN (BEAKER) (test code = 7.3 GM/DL 11.2-15.7 L 410) HEMATOCRIT (BEAKER) (test code = 22.7 % 34.1-44.9 L 411) HEMOGLOBIN AND [id number] 04:48:00 Test Item Value Reference Range Interpretation Comments HEMOGLOBIN (BEAKER) (test code = 7.4 GM/DL 11.2-15.7 L 410) HEMATOCRIT (BEAKER) (test code = 22.7 % 34.1-44.9 L 411) HEMOGLOBIN AND [id number] 18:18:00 Test Item Value Reference Range Interpretation Comments HEMOGLOBIN (BEAKER) (test code = 8.9 GM/DL 11.2-15.7 L 410) HEMATOCRIT (BEAKER) (test code = 27.8 % 34.1-44.9 L 411) HEMOGLOBIN AND [id number] 12:13:00 Test Item Value Reference Range Interpretation Comments HEMOGLOBIN (BEAKER) (test code = 6.5 GM/DL 11.2-15.7 L 410) HEMATOCRIT (BEAKER) (test code = 20.2 % 34.1-44.9 L 411) [id number] 03:43:00 Test Item Value Reference Range Interpretation Comments MAGNESIUM (BEAKER) (test code = 2.2 mg/dL 1.6-2.6 627) BASIC METABOLIC [id number] 03:43:00 Test Item Value Reference Range Interpretation [...] APPLICABLE FOR DIALYSIS PATIEN TS. HEMOGLOBIN AND [id number] 03:24:00 Test Item Value Reference Range Interpretation Comments HEMOGLOBIN (BEAKER) (test code = 7.5 GM/DL 11.2-15.7 L 410) HEMATOCRIT (BEAKER) (test code = 23.6 % 34.1-44.9 L 411) CBC W/PLT COUNT & AUTO [id number] 03:24:00 Test Item Value Reference Range Interpretation [...] (BEAKER) (test code = 2801) HEMOGLOBIN AND [id number] 23:21:00 Test Item Value Reference Range Interpretation Comments HEMOGLOBIN (BEAKER) (test code = 8.0 GM/DL 11.2-15.7 L 410) HEMATOCRIT (BEAKER) (test code = 24.6 % 34.1-44.9 L 411) [id number] 18:18:00 Test Item Value Reference Range Interpretation Comments MAGNESIUM (BEAKER) (test code = 1.6 mg/dL 1.6-2.6 627) BASIC METABOLIC [id number] 18:18:00 Test Item Value Reference Range Interpretation [...] S NOT APPLICABLE FOR DIALYSIS PATIEN TS. [id number] 18:06:00 Test Item Value Reference Range Interpretation [...] mechanical heart valves.CBC W/PLT COUNT & AUTO [id number] 17:58:00 Test Item Value Reference Range Interpretation [...] = 2801) RAD, CHEST, 1 VIEW, NON [id number] 17:41:00Reason for exam:->coughShould this be performed at the bedside?->YesFINAL REPORT Comparison: None TECHNIQUE: Single view of the chest FINDINGS: There is atelectasis in the lung bases. Otherwise lungs are clear. Cardiac silhouette is within normal limits. Aortic calcifications are seen. No acute skeletal abnormality. Signed: Mumtaz Reyes Verified Date/Time: 02/18/2018 17:41:25 Reading Location: [facility] C013T Transitional Reading Room
[2022-08-25 22:14] LABS: Absolute Lymphocytes (CBC) 1.4 K/uL (0.7-4.9); Hematocrit 32.9 % (36.0-45.0); Lymphocytes % 24.8 % (15.3-44.8); MCV 95.4 fL (80-100); MPV 8.1 fL (7.6-11.3); RBC Red Blood Cell Count 3.45 M/uL (3.86-4.86)
[2022-08-25 22:17] LABS: Protime INR 1.23
[2022-08-25 22:22] LABS: SARS-CoV-2 Antigen Rapid Res Negative (Negative)
[2022-08-25 22:30] LABS: Albumin 2.3 g/dL (3.4-5.0); Potassium 3.8 mmol/L (3.5-5.1); Protein, Total 7.1 g/dL (6.4-8.2)
--- NOTE | 2022-08-26 00:35 | EDPHYS ---
Physician Documentation [facility] Name: Mackenzie Cutler Age: 82 yrs Sex: Female : 1940 Arrival Date: 08/25/2022 Time: 21:34 Bed 13 Private MD: ED Physician Linden Díaz HPI: 08/25 22:23 This 82 yrs old Female presents to ER via EMS with complaints of Rectal rn Bleeding. 22:23 The patient presents to the emergency department with bleeding from the rectum/anus, rn that is mild. Onset: The symptoms/episode began/occurred today. Modifying factors: The symptoms are alleviated by nothing, The symptoms are aggravated by bowel movement. Associate signs and symptoms: Pertinent positives: lower GI bleeding, Pertinent negatives: abdominal pain, diarrhea, fever. The patient has experienced similar episodes in the past. The patient has not recently seen a physician. Historical: - Allergies: 21:46 Morphine; mb9 - Home Meds: 21:46 Oxybutynin Chloride Oral [Active]; Spironolactone Oral [Active]; memantine oral mb9 [Active]; - PMHx: 21:46 Dementia; diabetes mellitus; Hypertensive disorder; Cirrhosis of liver; Diverticulitis; mb9 rectal bleed; - PSHx: 21:46 None; mb9 - Immunization history:: Adult Immunizations up to date. - Social history:: Smoking status: Patient denies any tobacco usage or history of. - Family history:: not pertinent. - Hospitalizations: : No recent hospitalization is reported. ROS: 22:23 Constitutional: Negative for fever, chills, and weight loss, Eyes: Negative for injury, rn pain, redness, and discharge, Cardiovascular: Negative for chest pain, palpitations, and edema, Respiratory: Negative for shortness of breath, cough, wheezing, and pleuritic chest pain, Abdomen/GI: + rectal bleeding, negative for abd pain Back: Negative for injury and pain, MS/Extremity: Negative for injury and deformity, Skin: Negative for injury, rash, and discoloration, Neuro: + generalized weakness Exam: 22:23 Constitutional: This is a well developed, well nourished patient who is awake, alert, rn and in no acute distress. Head/Face: Normocephalic, atraumatic. ENT: dry MM Cardiovascular: Regular rate and rhythm. No pulse deficits. Respiratory: No increased work of breathing, no retractions or nasal flaring. Abdomen/GI: Soft, non-tender Skin: Warm, dry MS/ Extremity: Pulses equal, no cyanosis. Neuro: Awake and alert, GCS 15 Vital Signs: 21:40 BP 144 / 75; Pulse 92; Resp 20; Temp 98.4(O); Pulse Ox 98% on R/A; Weight 72.57 kg (R); mb9 Height 5 ft. 1 in. (154.94 cm) (R); Pain 0/10; 22:15 BP 135 / 69; Pulse 79; Resp 19 S; Pulse Ox 98% on R/A; ha1 23:15 BP 132 / 66; Pulse 78; Resp 18 S; Pulse Ox 98% on R/A; ha1 08/26 00:15 BP 133 / 67; Pulse 77; Resp 18 S; Pulse Ox 97% on R/A; ha1 01:15 BP 128 / 70; Pulse 70; Resp 18 S; Pulse Ox 97% on R/A; ha1 08/25 21:40 Body Mass Index 30.23 (72.57 kg, 154.94 cm) mb9 MDM: 08/25 21:39 Patient medically screened. rn 08/26 00:33 Differential diagnosis: internal hemorrhoids, polyps, diverticulitis, diverticulosis. rn Data reviewed: vital signs, nurses notes, lab test result(s), radiologic studies, CT scan, and as a result, I will admit patient. Consideration of Admission/Observation Patient was admitted/placed on observation. Escalation of care including admission/observation considered. Counseling: I had a detailed discussion with the patient and/or guardian regarding: the historical points, exam findings, and any diagnostic results supporting the discharge/admit diagnosis, lab results, radiology results, the need for further work-up and treatment in the hospital. Response to treatment: There is no appreciated change of the patient's symptoms at this time, and as a result, I will admit patient. 08/25 21:39 Order name: CBC with Diff rn 08/25 21:39 Order name: CMP rn 08/25 21:39 Order name: Lipase rn 08/25 21:39 Order name: PT-INR rn 08/25 21:39 Order name: Ptt, Activated rn 08/25 21:40 Order name: Type And Screen rn 08/25 21:40 Order name: SARS RAPID rn 08/25 22:16 Order name: CBC with Automated Diff; Complete Time: 23:42 EDMS 08/25 22:17 Order name: Protime (+INR); Complete Time: 23:42 EDMS 08/25 22:17 Order name: PTT, Activated Partial Thromb; Complete Time: 23:42 EDMS 08/25 22:23 Order name: SARS-COV-2 Antigen Rapid; Complete Time: 23:42 EDMS 08/25 22:30 Order name: Comprehensive Metabolic Panel; Complete Time: 23:42 EDMS 08/25 22:30 Order name: Lipase; Complete Time: 23:42 EDMS 08/25 23:08 Order name: Type and Screen EDMS 08/25 21:39 Order name: CT Abd/Pelvis - IV Contrast Only rn 08/25 21:39 Order name: IV Saline Lock; Complete Time: 21:58 rn 08/25 21:39 Order name: Labs collected and sent; Complete Time: 21:58 rn 08/25 23:15 Order name: Antibody Identification EDMS 08/26 05:46 Order name: Hemoglobin; Complete Time: 08:38 EDMS 08/26 07:43 Order name: Hemoglobin; Complete Time: 08:38 EDMS Administered Medications: 01:00 Drug: traMADol 50 mg Route: PO; ha1 07:16 Follow up: Response: No adverse reaction db Disposition Summary: 08/26/22 00:35 Hospitalization Ordered Hospitalization Status: Observation rn Condition: Stable rn Problem: new rn Symptoms: are unchanged rn Bed/Room Type: Standard rn Provider: Ted Martin(08/26/22 00:43) rn Location: Telemetry/MedSurg (observation)(08/26/22 10:02) dw Room Assignment: 215(08/26/22 10:02) dw Diagnosis - Diverticulosis of large intestine without perforation or abscess with bleeding rn Forms: - Medication Reconciliation Form rn - SBAR form rn Signatures: Dispatcher [employer] Karrie Mitchell RN RN dw Anderson, Corey, MD MD cha Nieto, Roman, MD MD rn Garcia, Cindy, RN RN cg Ayala, Heidy RN RN ha1 Umm Fuentes RN RN mb9 Dennis, Irene RN db Corrections: (The following items were deleted from the chart) 00:43 00:35 Jamal Solitario rn rn 00:55 00:35 Telemetry/MedSurg (observation) rn cg 00:55 00:35 rn cg 10:02 00:55 [facility] cg dw [facility]02 [facility]
--- NOTE | 2022-08-26 00:35 | ER ---
Nurse's Notes [facility] Name: Mackenzie Culter Age: 82 yrs Sex: Female : 1940 Arrival Date: 08/25/2022 Time: 21:34 Bed 13 Private MD: Diagnosis: Diverticulosis of large intestine without perforation or abscess with bleeding Presentation: 08/25 21:40 Chief complaint: EMS states: "pt started having dark red rectal bleeding around 1500 mb9 today. Pt daughter states she has loose stools with 3-4 blood clots in it. Pt also complaining of being dehydrated and having pain in her right shoulder that was fractured 2 weeks ago". Coronavirus screen: Vaccine status: Patient reports receiving the 2nd dose of the covid vaccine. Ebola Screen: No symptoms or risks identified at this time. Initial Sepsis Screen: Does the patient meet any 2 criteria? No. Patient's initial sepsis screen is negative. Does the patient have a suspected source of infection? No. Patient's initial sepsis screen is negative. Risk Assessment: Do you want to hurt yourself or someone else? Patient reports no desire to harm self or others. Onset of symptoms was August 25, 2022. 21:40 Method Of Arrival: EMS: [facility] mb9 21:40 Acuity: KAREN 3 mb9 Historical: - Allergies: 21:46 Morphine; mb9 - Home Meds: 21:46 Oxybutynin Chloride Oral [Active]; Spironolactone Oral [Active]; memantine oral mb9 [Active]; - PMHx: 21:46 Dementia; diabetes mellitus; Hypertensive disorder; Cirrhosis of liver; Diverticulitis; mb9 rectal bleed; - PSHx: 21:46 None; mb9 - Immunization history:: Adult Immunizations up to date. - Social history:: Smoking status: Patient denies any tobacco usage or history of. - Family history:: not pertinent. - Hospitalizations: : No recent hospitalization is reported. Screenin:15 Tuberculosis screening: No symptoms or risk factors identified. ha1 22:15 [facility] ED Fall Risk Assessment (Adult) History of falling in the last 3 months, ha1 including since admission Yes- single mechanical fall (1 pt) Confusion or Disorientation No (0 pts) Intoxicated or Sedated No (0 pts) Impaired Gait Mobility Assist Device Used Yes (1 pt) Altered Elimination No (0 pt) Score/Fall Risk Level 0 - 2 = Low Risk Oriented to surroundings, Maintained a safe environment, Educated pt \\T\\ family on fall prevention, incl call for assistance when getting out of bed, Assessed \\T\\ reinforced patient's understanding of fall precautions, Hourly rounding (assess needs \\T\\ fall precautionary measures) done. 08/26 00:00 Abuse screen: Denies threats or abuse. Denies injuries from another. Nutritional ha1 screening: No deficits noted. Assessment: 08/25 21:58 General: Appears in no apparent distress. Behavior is calm, cooperative. Pain: Denies mb9 pain. Neuro: Smith Agitation-Sedation Scale (RASS): 0 - Alert and Calm Level of Consciousness is awake, alert, obeys commands, Oriented to person, place, time, situation, Appropriate for age. Cardiovascular: Rhythm is regular. Respiratory: Airway is patent Respiratory effort is even, unlabored, Respiratory pattern is regular, symmetrical. GI: Abdomen is flat, non-distended, Bowel sounds present X 4 quads. Abd is soft and non tender X 4 quads. Patient currently denies bloody stool, rectal bleeding. : No signs and/or symptoms were reported regarding the genitourinary system. Derm: Skin is pink, warm \\T\\ dry. Musculoskeletal: Range of motion: limited in right shoulder. 22:15 Reassessment: gave report to ERIK Castillo. mb9 23:15 Reassessment: Patient and/or family updated on plan of care and expected duration. Pain ha1 level reassessed. Patient is alert, oriented x 3, equal unlabored respirations, skin warm/dry/pink. Patient denies pain at this time. 08/26 00:15 Reassessment: Patient and/or family updated on plan of care and expected duration. Pain ha1 level reassessed. Patient is alert, oriented x 3, equal unlabored respirations, skin warm/dry/pink. Patient denies pain at this time. Patient states feeling better. 01:15 Reassessment: Patient and/or family updated on plan of care and expected duration. Pain ha1 level reassessed. Patient is alert, oriented x 3, equal unlabored respirations, skin warm/dry/pink. Patient denies pain at this time. Patient states feeling better. Vital Signs: 08/25 21:40 BP 144 / 75; Pulse 92; Resp 20; Temp 98.4(O); Pulse Ox 98% on R/A; Weight 72.57 kg (R); mb9 Height 5 ft. 1 in. (154.94 cm) (R); Pain 0/10; 22:15 BP 135 / 69; Pulse 79; Resp 19 S; Pulse Ox 98% on R/A; ha1 23:15 BP 132 / 66; Pulse 78; Resp 18 S; Pulse Ox 98% on R/A; ha1 08/26 00:15 BP 133 / 67; Pulse 77; Resp 18 S; Pulse Ox 97% on R/A; ha1 01:15 BP 128 / 70; Pulse 70; Resp 18 S; Pulse Ox 97% on R/A; ha1 08/25 21:40 Body Mass Index 30.23 (72.57 kg, 154.94 cm) mb9 ED Course: 08/25 21:34 Patient arrived in ED. wm 21:39 Linden Díaz MD is Attending Physician. rn 21:40 Umm Fuentes, ERIK is Primary Nurse. mb9 21:42 Triage completed. mb9 21:42 Arm band placed on. mb9 21:58 SARS RAPID Sent. mb9 21:58 Type And Screen Sent. mb9 21:58 Ptt, Activated Sent. mb9 21:58 PT-INR Sent. mb9 21:58 CBC with Diff Sent. mb9 21:58 CMP Sent. mb9 21:58 Lipase Sent. mb9 21:58 Inserted saline lock: 22 gauge in left antecubital area, using aseptic technique. Blood mb9 collected. 22:15 Patient has correct armband on for positive identification. Placed in gown. Bed in low ha1 position. Call light in reach. Side rails up X 1. Adult w/ patient. 23:35 CT Abd/Pelvis - IV Contrast Only In Process Unspecified. EDMS 08/26 00:34 Jamal Solitario MD is Hospitalizing Provider. rn 00:43 Ted Martin MD is Hospitalizing Provider. rn 02:50 No provider procedures requiring assistance completed. ha1 02:50 Patient admitted, IV remains in place. ha1 03:26 Primary Nurse role handed off by Umm Fuentes, ERIK ha1 03:26 Ferrera, Yue, RN is Primary Nurse. ha1 Administered Medications: 01:00 Drug: traMADol 50 mg Route: PO; ha1 07:16 Follow up: Response: No adverse reaction db Medication: 08/25 22:15 VIS not applicable for this client. ha1 Outcome: 08/26 00:35 Decision to Hospitalize by Provider. rn 02:50 Admitted to ER Hold. Please see [facility] for further documentation. ha1 02:50 Condition: stable 02:50 Discharge instructions given to patient, family, Instructed on the need for admit, ha1 Demonstrated understanding of instructions. 10:45 Patient left the ED. db Signatures: Dispatcher [employer] EDMS Linden Díaz MD MD rn Marsh, Wendy Yue Ferrera RN RN 1 Irene Dennis RN RN db Breneman, Mary Beth, RN RN mb9 Corrections: (The following items were deleted from the chart) 05:31 08/25 23:00 BP 135 / 69; Pulse 79bpm; Resp 19bpm; Spontaneous; Pulse Ox 98% RA; ha1 ha1 08/26 05:31 00:00 BP 132 / 66; Pulse 78bpm; Resp 18bpm; Spontaneous; Pulse Ox 98% RA; ha1 ha1
[2022-08-26] MEDS ORDERED: TRAMADOL HCL 50 MG TAB ONE (01:01)
[2022-08-26] MEDS ORDERED: ONDANSETRON 4 MG/2 ML VIAL IV PRN (02:53)
[2022-08-26] MEDS ORDERED: INFLUENZA VACCINE (for 6+ mo) 0.5 ML DOSE IMVAC ONE (08:00)
[2022-08-26] MEDS ORDERED: PNEUMOCOCCAL VACCINE 0.5 ML IMVAC ONE (08:00)
[2022-08-26] MEDS ORDERED: BISACODYL E.C. 5 MG TAB PO ONE (13:50)
[2022-08-26] MEDS ORDERED: GOLYTELY 4000 ML PO SCH (14:00)
[2022-08-26] MEDS ORDERED: METOCLOPRAMIDE 10 MG/2mL INJ IV PRN (15:00)
[2022-08-26] MEDS ORDERED: MORPHINE 2 MG/ML SYR IV PRN (19:26)
--- NOTE | 2022-08-26 21:13 | RAD REPORT ---
EXAM DESCRIPTION: CT - Abdomen Pelvis W Contrast - 08/26/2022 6:51 am CLINICAL HISTORY: Rectal bleeding TECHNIQUE: Axial computed tomography images of the abdomen and pelvis with intravenous contrast. S agittal and coronal reformatted images were created and reviewed. This CT exam was performed using one or more of the following dose reduction techniques: automated exposure control, adjustment of t he mA and/or kV according to patient size, and/or use of iterative reconstruction technique. COMPARISON: CT Abdomen Pelvis dated 06/15/2021 FINDINGS: Lung bases: Bilateral subsegmental atelectasis/pleural parenchymal scar. Heart: The heart is mildly enlarged. Coronary artery calcification. ABDOMEN: Liver: Cirrhotic liver again demonstrated. Gallbladder and bile ducts: Prior cholecystectomy. Extrahepatic biliary dilatation less pronounce d on the current study. The common duct measures 19 mm in maximum diameter. Pancreas: Unremarkable. No mass. No ductal dilation. Spleen: Unremarkable. No splenomegaly. Adrenals: Unremarkable. No mass. Kidneys and ureters: Subcentimeter renal cortical hypodensities bilaterally which cannot be fully c haracterized. No follow-up imaging is necessary. No calculi. No hydronephrosis. Stomach and bowel: Colonic diverticula without adjacent inflammatory change. No obstruction. No appreciable mucosal thickening. PELVIS: Appendix: Normal caliber appendix. No findings to suggest acute appendicitis. Bladder: Mild urinary bladder wall thickening. Reproductive: Unremarkable as visualized. ABDOMEN and PELVIS: Intraperitoneal space: Unremarkable. No free air. No significant fluid collection. Bones/joints: Multilevel spondylosis. Remote T11 compression fracture again demonstrated. No ac conor fracture. Prior left femoral gamma nail fixation. No dislocation. Soft tissues: There are a couple small to moderate fat-containing supraumbilical hernias similar to the prior. Small bilateral fat-containing inguinal hernias. Vasculature: Severe atherosclerotic disease. Infrarenal abdominal aortic aneurysm measuring 3.1 c m in maximum diameter similar to the prior. Left abdominal varices. Recanalization of the umbilic al vein. The main portal, splenic and superior mesenteric veins are patent. Lymph nodes: Unremarkable. No enlarged lymph nodes. IMPRESSION: 1. Colonic diverticulosis without radiologic evidence for acute diverticulitis. 2. Mild urinary bladder wall thickening. Please correlate clinically for cystitis. 3. Stable 3.1 cm abdominal aortic aneurysm. Recommend follow-up every 3 years. Reference: J Am Co ll Radiol 2013;10 (10):789-794 4. Other findings as above. 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 The interpreting radiologist is fully responsible for the content of the report.
--- NOTE | 2022-08-26 21:21 | P.HP ---
Certification for Inpatient Patient admitted to: Inpatient With expected LOS: >2 Midnights Practitioner: I am a practitioner with admitting privileges, knowledge of patient current condition, hospital course, and medical plan of care. Services: Services provided to patient in accordance with Admission requirements found in Title 42 Section 412.3 of the Code of Federal Regulations Patient History Date of Service: 08/26/22 Reason for admission: LOWER GI BLEED History of Present Illness: RIAN IS PATIENT WITH DEMENTIA WHO IS STILL FUNCTIONAL HAD LOWER GI BLEEDING WITH CLOTS. SHE WAS BROUGHT TO ER. SHE HAD NO SYNCOPE OR CHEST PAIN PER FAMILY. I TALKED TO DR. ALEMAN AND HE WILL PERFORM COLONOSCOPY IN AM. Allergies No Known Allergies Allergy (Verified 06/15/21 23:15) Home medications list reviewed: Yes Home Medications: Memantine HCl 10 mg PO BID 06/15/21 Spironolact/Hydrochlorothiazid [Aldactazide 25-25 Tablet] 1 each PO DAILY 08/13/22 oxyBUTYnin chloride [Oxybutynin Chloride] 5 mg PO BID 08/13/22 Cyanocobalamin/Cobamamide [Vitamin B-12 5,000 Mcg Tab Sl] 1 each SL DAILY #30 tab 08/14/22 Lactulose 30 ml PO DAILY PRN #500 ml 08/14/22 - Past Medical/Surgical History Diabetic: No -: Hypertension -: Osteoporosis -: Diverticulitis -: Dementia -: Hysterectomy -: Cholecystectomy -: Bladder surgery -: Rectal surgery - colon tear (2017) -: total hip replacement - Family History Brother -: Diabetes Sister -: Diabetes Father -: Heart disease Notes: Mother -: Heart disease Notes: - Social History Smoking Status: Unknown if ever smoked Alcohol use: No CD- Drugs: No Caffeine use: Yes Review of Systems 10-point ROS is otherwise unremarkable General: Weakness Physical Examination - Vital Signs Temperature: 98.1 F Blood Pressure: 131/70 Pulse: 75 Respirations: 16 Pulse Ox (%): 96 - Physical Exam General: Oriented x2, Mild distress HEENT: Atraumatic, PERRLA, Mucous membr. moist/pink, EOMI, Sclerae nonicteric Neck: Supple, 2+ carotid pulse no bruit, No LAD, Without JVD or thyroid abnormality Respiratory: Clear to auscultation bilaterally, Normal air movement Cardiovascular: Regular rate/rhythm, Normal S1 S2 Gastrointestinal: Normal bowel sounds, No tenderness Musculoskeletal: No tenderness Integumentary: No rashes Neurological: Normal gait, Normal speech, Normal strength at 5/5 x4 extr, Normal tone, Normal affect Lymphatics: No axilla or inguinal lymphadenopathy - Studies Laboratory Data (last 24 hrs) 08/25/22 21:54: PT 13.5 H, INR 1.23, APTT 30.4 08/25/22 21:54: Sodium 139, Potassium 3.8, BUN 31 H, Creatinine 1.41 H, Glucose 111 H, Total Bilirubin 1.0, AST 24, ALT 16, Alkaline Phosphatase 140 H, Lipase 210 08/25/22 21:54: WBC 5.60, Hgb 11.5 L, Hct 32.9 L, Plt Count 195 Assessment and Plan - Problems (Diagnosis) (1) Lower GI bleed Current Visit: Yes Status: Acute Plan: DR. ALEMAN WILL DO CRC TOMORROW PATIENT WILL BE SEEN BY HOSPITALISTS I WILL BE OUT OF TOWN. DR. SAXENA IS AWARE. SHE MAY GO HOME IN AM. (2) Dementia Current Visit: Yes Status: Chronic - Advance Directives Does patient have a Living Will: No Does patient have a Durable POA for Healthcare: No
[2022-08-27 00:09] LABS: Hematocrit 30.5 % (36.0-45.0); MCV 96.3 fL (80-100); MPV 7.8 fL (7.6-11.3); RBC Red Blood Cell Count 3.17 M/uL (3.86-4.86)
[2022-08-27 04:05] LABS: Absolute Lymphocytes (CBC) 2.7 K/uL (0.7-4.9); Hematocrit 31.8 % (36.0-45.0); Lymphocytes % 40.4 % (15.3-44.8); MCV 95.9 fL (80-100); RBC Red Blood Cell Count 3.32 M/uL (3.86-4.86)
[2022-08-27 04:20] LABS: Potassium 3.4 mmol/L (3.5-5.1)
[2022-08-27 06:17] VITALS: BMI 24.2
[2022-08-27] MEDS ORDERED: Ringers Lactate 1,000 ML IV ONE (07:49)
[2022-08-27] MEDS ORDERED: propofoL 200 MG/20 ML VIAL IV ONE (08:14)
[2022-08-27] MEDS ORDERED: LIDOCAINE 1% MPF 5 ML VIAL ONE (08:14)
[2022-08-27 09:22] VITALS: BP 122/81; TEMP 98.2; O2SAT 99
[2022-08-27 11:42] LABS: Hematocrit 28.8 % (36.0-45.0); MCV 96.3 fL (80-100); MPV 7.9 fL (7.6-11.3); RBC Red Blood Cell Count 2.99 M/uL (3.86-4.86)
--- NOTE | 2022-08-27 13:23 | CON ---
Date of Consultation: 08/27/2022 Reason For Consultation: Lower GI bleed, hematochezia with hemoglobin 9.6 at lowest. History Of Present Illness: This patient is an 82-year-old female with history of hypertens ion, dementia, prior diverticular bleed x1. Patient presented to hospital due to hematochezia, found to have a hemoglobin that had decreased from approximately 11 down to 9.6. Her family, what appears to be 2 daughters, apparently stated patient had a colonoscopy approximately, I guess, 1 to 2 years ago or maybe more than what they were seemed to be uncertain, could be up to 5 years ago. Patient is not on any blood thinners, aspirin, ibuprofen, she does not appear. Past Medical History: Significant for hypertension, dementia, osteoporosis, diverticulitis, hysterec mathieu, cholecystectomy, bladder surgery, rectal surgery secondary to colon tear in 2017, and total hip replacement. Medications: Include memantine, spironolactone, hydrochlorothiazide, oxybutynin, vitamin B12, lactul ose. Allergies: NKDA. 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 Family History: Father and mother of coronary artery disease, heart attack, she reports. It al so appeared that sister and brother had diabetes by chart review. Review of Systems: Patient has hematochezia, weakness, but no other symptoms. No chest pain, shortness of breath, seizu re, syncope, muscle aches, joint aches, backaches, depression, anxiety, hematemesis, coffee-ground em esis, hemoptysis, hematuria, dysuria, polydipsia. No melena. Physical Examination: Vital Signs: Patient has temperature of 97.8 degrees Fahrenheit, pulse of 55, respirations 16, blood pressure 96, O2 saturation 95% to 97% on room air. HEENT: Normocephalic, atraumatic. Anicteric. Pupils equal, round, and reactive to light. Extraocu lar movements are intact. Oropharynx is clear. Neck: Supple. No masses. Respirations: Clear to auscultation bilaterally. Cardiac: Regular rate and rhythm. No gallops or rubs. Gastrointestinal: Positive bowel sounds. Soft, nontender, nondistended. No hepatosplenomegaly Extremities: No clubbing, cyanosis, or edema. 2+ pulses. Neuro: Alert and oriented x3. Grossly focal. 5/5 motor strength intact to light touch. Able to mo ve all extremities well. Laboratory Data: The patient has a white count of 6.8, hemoglobin of 11.1, up from 9.6 yesterday, he matocrit 32, MCV of 96, platelet count of 186, polys of 46%, lymphocytes 40%, monocytes 8%, eosinophi ls 5%. Patient has a PT of 13.5, INR of 1.23, PTT of 30.4. Sodium 139, potassium 3.4, chloride 107, bicarb 27, BUN of 20, creatinine of 0.9, glucose 88, calcium 9.3, total bilirubin 1.0, AST 24, ALT o f 16, alkaline phosphatase 140, total protein 7.1, albumin 2.3, lipase 210. Serologies: COVID-[address] abdomen and pelvis revealed mild urinary bladder wall thickening, 3.1 cm abdomina l aortic aneurysm, otherwise negative. Impression: 1.Hematochezia, lower gastrointestinal bleed. The patient has history of diverticular disease in th e past as per daughters. Wants this investigated with colonoscopy. 2.Anemia. Hemoglobin down to 9.6, now back up to 11.1. 3.History of hypertension, dementia, diverticulosis, diverticular bleed in past, osteoporosis, hyste rectomy, laparoscopic cholecystectomy, bladder surgery, colon tear with rectal surgery in 2016, and t otal hip replacement as well. Recommendation: 1.Urgent colonoscopy. 2.Serial H and H and transfuse p.r.n. 3.Keep patient n.p.o. 4.IV fluids. Thank you for consult. SONIA/BILLIE Voice ID: [id number] Report ID: [id number]
== END 2022-08-27 12:35 | disposition home or self-care (01) ==
LOC: ER 21:32 → ERHOLD 08-26 00:45 → 2ND 08-26 10:35
PROVIDERS: ADMIT Internal Medicine; ATTEND Hospitalist
PROC: 0DJD8ZZ Inspection of Lower Intestinal Tract, Via Natural or Artificial Opening Endoscopic (ICD-10-PCS; principal; 2022-08-27 07:30)
DX: K92.2 Gastrointestinal hemorrhage, unspecified (principal); D64.9 Anemia, unspecified; F03.90 Unspecified dementia, unspecified severity, without behavioral disturbance, psychotic disturbance, mood disturbance, and anxiety; I10 Essential (primary) hypertension; K64.8 Other hemorrhoids; K57.30 Diverticulosis of large intestine without perforation or abscess without bleeding; Z20.822 Contact with and (suspected) exposure to COVID-19; K63.5 Polyp of colon
CPT/HCPCS: 85025 ×2; 80048; 36415 ×2; 86900 ×2; 86880; 86850; 85610; 86870 ×2; 86901; 85730; 85018 ×2; 85027 ×2; 83690; 80053; 74177; 99285; 87811; 86860; 86905; 86970; 86978; 45378; Q9967; J2704; J2765; J2001; J2270; G0378 ×5; J7120; J2405

== ENCOUNTER 2023-09-28 12:58 | Emergency (ER) | payer OTHER ==
[2023-09-28 13:44] LABS: Absolute Eosinophils 0.2 K/uL (0-0.5); Absolute Lymphocytes (CBC) 1.8 K/uL (0.7-4.9); Absolute Monocytes 0.3 K/uL (0.1-1.3); Absolute Neutrophil 1.8 K/uL (1.8-8.0); Basophils % 0.3 % (0-1.3); Eosinophils % 5.7 % (0-4.4); Hematocrit 36.5 % (36.0-45.0); Hemoglobin 12.3 g/dL (12.0-15.0); Lymphocytes % 41.9 % (15.3-44.8); MCH 33.5 pg (27.0-35.0); MCHC 33.6 g/dL (32.0-36.0); MCV 99.6 fL (80-100); MPV 8.8 fL (7.6-11.3); Monocytes % 8.4 % (3.3-12.3); Neutrophils % 43.7 % (41.7-73.7); Nucleated Red Blood Cells % 0.1 % (0-0); Platelets 93 thou/uL (152-406); RBC Red Blood Cell Count 3.67 M/uL (3.86-4.86); Red Cell Distribution Width 13.7 % (12.1-15.2)
--- NOTE | 2023-09-28 13:54 | RAD REPORT ---
EXAM DESCRIPTION: CT - Head Brain Wo Cont - 09/28/2023 1:34 pm CLINICAL HISTORY: CONFUSED COMPARISON: Head Brain Wo Cont dated 08/13/2022 TECHNIQUE: Noncontrast head CT images were obtained without IV contrast. Multiplanar reformats were generated and reviewed. All CT scans are performed using dose optimization technique as appropriate and may include automated exposure control or mA/KV adjustment according to patient size. FINDINGS: No intracranial hemorrhage, mass, or edema. Midline structures are unremarkable. Stable ventricular caliber. Patchy deep white matter mild hypoattenuation, nonspecific, most suggestive of chronic small vessel i schemic changes. Feliciano-white matter differentiation is preserved, without evidence of acute infarct. No abnormal extra- axial fluid collections. Mastoid air cells and visualized portions of the paranasal sinuses are clear. No acute bony findings. IMPRESSION: No evidence of an acute intracranial process. Chronic findings as above.
[2023-09-28 14:01] LABS: Albumin 2.7 g/dL (3.4-5.0); Albumin/Globulin Ratio 0.7 (1.1-1.8); Anion Gap 7.8 mEq/L (5.0-15.0); Bilirubin Direct 0.3 mg/dL (0-0.2); Bilirubin Indirect, Calculated 0.7 mg/dL (0.2-0.8); Globulin 3.9 g/dL (2.3-3.5); Magnesium 1.8 mg/dL (1.6-2.4); Potassium 3.8 mEq/L (3.5-5.1); Protein, Total 6.6 g/dL (6.4-8.2)
[2023-09-28 14:07] LABS: Sqamous Epithelial <5 /HPF (None Seen); Urine Bacteria 20-50 /HPF (<20); Urine Bilirubin NEGATIVE (Negative); Urine Blood Negative (Negative); Urine Clarity Extremely Turbid (Clear); Urine Color Light-Yellow (Yellow); Urine Culture Reflex Order REFLEXED; Urine Glucose NEGATIVE (Negative); Urine Ketones NEGATIVE (Negative); Urine Microscopic Reflex YN ORDER UMIC; Urine Mucus Slight /HPF (None Seen); Urine Nitrite 2+ (Negative); Urine Protein NEGATIVE (Negative); Urine RBC <5 /HPF (None Seen); Urine Urobilinogen Normal (Normal); Urine WBC 20-50 /HPF (<5); Urine WBC Clump Rare /HPF (None Seen); Urine pH 5.5 (5.0-7.0)
[2023-09-28] MEDS ORDERED: NA CHLORIDE 0.9% 1,000 ML ONE (14:17)
[2023-09-28] MEDS ORDERED: CEFTRIAXONE 1000 MG/VIAL ONE (14:17)
[2023-09-28] MEDS ORDERED: NA CHLORIDE 0.9% 50 ML ONE (14:17)
--- NOTE | 2023-09-28 14:29 | ER ---
Nurse's Notes [facility] Name: Mackenzie Cutler Age: 83 yrs Sex: Female : 1940 Arrival Date: 09/28/2023 Time: 12:58 Bed 2 Private MD: Diagnosis: UTI/ Urinary tract infection, site not specified Presentation: 09/27 13:00 Chief complaint: EMS states: AMS and dizziness that began 1-2 hrs WASTE HAND. aa5 13:00 Coronavirus screen: At this time, the client does not indicate any symptoms associated aa5 with coronavirus-19. Ebola Screen: Patient denies travel to an Ebola-affected area in the 21 days before illness onset. Initial Sepsis Screen: Does the patient meet any 2 criteria? No. Patient's initial sepsis screen is negative. Does the patient have a suspected source of infection? No. Patient's initial sepsis screen is negative. Risk Assessment: Do you want to hurt yourself or someone else? Patient reports no desire to harm self or others. Onset of symptoms was September 28, 2023. 13:00 Acuity: KAREN 2 aa5 13:00 Method Of Arrival: EMS: [facility] aa5 Historical: - Allergies: 13:00 Morphine; ph - PMHx: 13:00 cirrhosis of liver; Dementia; diabetes mellitus; Diverticulitis; Hypertensive disorder; ph Rectal bleed; - Immunization history:: Adult Immunizations unknown. - Social history:: Smoking status: unknown. Screenin:02 Abuse screen: Denies threats or abuse. Denies injuries from another. Nutritional ph screening: On. Tuberculosis screening: No symptoms or risk factors identified. 14:28 [facility] ED Fall Risk Assessment (Adult) History of falling in the last 3 months, ph including since admission No falls in past 3 months (0 pts) Confusion or Disorientation Yes (5 pts) Intoxicated or Sedated No (0 pts) Impaired Gait Yes (1 pt) Mobility Assist Device Used Yes (1 pt) Altered Elimination Yes (1 pt) Score/Fall Risk Level 3 or more points = High Risk Oriented to surroundings, Maintained a safe environment, Provided non-skid footwear, Hourly rounding (assess needs \T\ fall precautionary measures) done. Assessment: 13:30 General: Appears in no apparent distress. comfortable, well groomed, well developed, ph well nourished, Behavior is calm, cooperative, appropriate for age. Pain: Denies pain. Neuro: Level of Consciousness is awake, alert, obeys commands, confused, Oriented to person, place. Cardiovascular: Capillary refill < 3 seconds in bilateral fingers Patient's skin is warm and dry. Respiratory: Airway is patent Respiratory effort is even, unlabored, Respiratory pattern is regular, symmetrical. GI: No signs and/or symptoms were reported involving the gastrointestinal system. : Parent/caregiver report the patient having urinary frequency. Derm: Skin is pink, warm \T\ dry. 14:31 Reassessment: Patient appears in no apparent distress at this time. Patient and/or ph family updated on plan of care and expected duration. Pain level reassessed. Family at bedside, pt to d/c home after IV medications, VSS. Vital Signs: 13:00 BP 136 / 60; Pulse 73; Resp 16 S; Temp 97.8(TE); Pulse Ox 97% on R/A; aa5 14:28 BP 135 / 70; Pulse 71; Resp 18; Pulse Ox 96% on R/A; ph 15:30 BP 127 / 80; Pulse 72; Resp 18; Temp 98.2; Pulse Ox 99% on R/A; ph ED Course: 12:59 Patient arrived in ED. ph 13:01 Demi Finch, RN is Primary Nurse. ph 13:01 Bridgette Tirado PA-C is PHCP. sb4 13:01 Hawk Alberts MD is Attending Physician. sb4 13:01 Arm band placed on Patient placed in an exam room, on a stretcher, on cardiac rehab nurse, ph on pulse oximetry. 13:03 Patient has correct armband on for positive identification. Bed in low position. Call ph light in reach. Side rails up X2. Client placed on continuous cardiac and pulse oximetry monitoring. NIBP monitoring applied. site monitor on. Door closed. Noise minimized. Warm blanket given. 13:36 CT Head Brain wo Cont In Process Unspecified. EDMS 13:51 Triage completed. aa5 14:07 Urinalysis w/ reflexes Sent. ph 14:29 Ted Martin MD is Referral Physician. sb4 14:29 No provider procedures requiring assistance completed. ph 15:39 IV discontinued, intact, bleeding controlled, No redness/swelling at site. Pressure ph dressing applied. Administered Medications: 14: Drug: NS 0.9% IV 1000 ml IV at 1 bolus Per protocol; 1000 mL bolus Route: IV; Rate: 1 ph bolus; Site: right antecubital; 15:25 Follow up: Response: No adverse reaction; IV Status: Completed infusion; IV Intake: ph 1000ml 14: Drug: Rocephin IV 1 grams IV at calculated rate once; Given slow IV push per pharmacy ph instructions Route: IV; Rate: calculated rate; Site: right antecubital; 15:15 Follow up: Response: No adverse reaction; IV Status: Completed infusion ph Medication: 13:03 VIS not applicable for this client. ph Intake: 15:25 IV: 1000ml; Total: 1000ml. ph Outcome: 14:29 Discharge ordered by sb4 15:35 Discharged to home via wheelchair, with family, ph 15:35 Condition: good 15:35 Discharge instructions given to family, Instructed on discharge instructions, follow up and referral plans. medication usage, Demonstrated understanding of instructions, follow-up care, medications, Prescriptions given X 1, 15:38 Patient left the ED. ph Addendum: 10/01/2023 07:41 Addendum: Culture Results: Positive urine culture. No further action required. Bacteria e b sensitive to prescribed antibiotic. Signatures: Dispatcher [employer] Divya Tai RN RN aa5 Demi Finch RN RN Inge Rico Sophia, PA-C PA-C sb4
--- NOTE | 2023-09-28 14:29 | EDPHYS ---
Physician Documentation [facility] Name: Mackenzie Cutler Age: 83 yrs Sex: Female : 1940 Arrival Date: 09/28/2023 Time: 12:58 Bed 2 Private MD: ED Physician Hawk Alberts HPI: 09/27 13:20 This 83 yrs old Female presents to ER via Unassigned with complaints of sb4 confusion. 13:20 Patient with history of dementia presents with concerns for altered mental status. sb4 Family states that she has been more confused than usual today as well as urinating frequently. Patient has no complaints at this time. Family denies any recent change in medications. She states that she did feel like her legs were going to give out on her earlier today, but did not fall. Historical: - Allergies: 13:00 Morphine; ph - PMHx: 13:00 cirrhosis of liver; Dementia; diabetes mellitus; Diverticulitis; Hypertensive disorder; ph Rectal bleed; - Immunization history:: Adult Immunizations unknown. - Social history:: Smoking status: unknown. ROS: 13:23 Constitutional: Negative for fever, chills, and weight loss, sb4 13:23 All other systems are negative, Exam: 13:23 Constitutional: This is a well developed, well nourished patient who is awake, alert, sb4 and in no acute distress. Head/Face: Normocephalic, atraumatic. Eyes: Extra-ocular motions intact. Periorbital areas with no swelling, redness, or edema. ENT: Mucous membranes moist. Cardiovascular: Regular rate and rhythm with a normal S1 and S2. Respiratory: Lungs have equal breath sounds bilaterally, clear to auscultation and percussion. No rales, rhonchi or wheezes noted. No increased work of breathing, no retractions or nasal flaring. Abdomen/GI: Soft, non-tender, no distension. Skin: Warm, dry with normal turgor. Normal color with no rashes, no lesions, and no evidence of cellulitis. MS/ Extremity: Pulses equal, no cyanosis. Neurovascular intact. Full, normal range of motion. 13:23 Neuro: Mentation: able to follow commands, confused, Motor: is normal, is grossly normal based on the patient's age, moves all fours, Sensation: is normal, no obvious gross deficits, Vital Signs: 13:00 BP 136 / 60; Pulse 73; Resp 16 S; Temp 97.8(TE); Pulse Ox 97% on R/A; aa5 14:28 BP 135 / 70; Pulse 71; Resp 18; Pulse Ox 96% on R/A; ph 15:30 BP 127 / 80; Pulse 72; Resp 18; Temp 98.2; Pulse Ox 99% on R/A; ph MDM: 13:02 Patient medically screened. sb4 13:23 Differential Diagnosis: CVA, electrolyte abnormality, hypoglycemia, UTI, volume sb4 depletion. 14:16 Data reviewed: vital signs, nurses notes, EMS record, lab test result(s), radiologic sb4 studies, and as a result, I will discharge patient. Consideration of Admission/Observation Patient was admitted/placed on observation. Historians other than the Patient: Daughter/Son: daughter. Counseling: I had a detailed discussion with the patient and/or guardian regarding the historical points, exam findings, and any diagnostic results supporting the discharge/admit diagnosis, lab results, radiology results, to return to the emergency department if symptoms worsen or persist or if there are any questions or concerns that arise at home. 14:18 External Records Reviewed: Inpatient record: 2020 urine culture grew pansensitive sb4 ecoli. Care significantly affected by the following chronic conditions: Diabetes, Hypertension. 09/27 13:13 Order name: Basic Metabolic Panel; Complete Time: 14:08 sb4 09/27 13:13 Order name: CBC with Diff; Complete Time: 14:44 sb 09/27 13:13 Order name: Hepatic Function; Complete Time: 14:08 sb4 09/27 13:13 Order name: Magnesium; Complete Time: 14:08 sb4 09/27 13:13 Order name: Urinalysis w/ reflexes; Complete Time: 14:08 sb4 09/27 14:08 Order name: Urine Culture sb 09/27 14:10 Order name: Urine Culture EDRI 09/27 14:43 Order name: CBC Smear Scan; Complete Time: 14:44 EDRI 09/27 13:13 Order name: CT Head Brain wo Cont; Complete Time: 13:56 sb4 09/27 13:13 Order name: EKG; Complete Time: 13:13 sb4 09/27 13:13 Order name: Cardiac monitoring; Complete Time: 14:07 sb4 09/27 13:13 Order name: EKG - Nurse/Tech; Complete Time: 14:07 sb4 09/27 13:13 Order name: IV Saline Lock; Complete Time: 14:07 sb4 09/27 13:13 Order name: Labs collected and sent; Complete Time: 14:07 sb4 09/27 13:13 Order name: O2 Per Protocol; Complete Time: 14:07 sb4 09/27 13:13 Order name: O2 Sat Monitoring; Complete Time: 14:07 sb4 Administered Medications: 14:26 Drug: NS 0.9% IV 1000 ml IV at 1 bolus Per protocol; 1000 mL bolus Route: IV; Rate: 1 ph bolus; Site: right antecubital; 15:25 Follow up: Response: No adverse reaction; IV Status: Completed infusion; IV Intake: ph 1000ml 14:26 Drug: Rocephin IV 1 grams IV at calculated rate once; Given slow IV push per pharmacy ph instructions Route: IV; Rate: calculated rate; Site: right antecubital; 15:15 Follow up: Response: No adverse reaction; IV Status: Completed infusion ph Disposition Summary: 09/28/23 14:29 Discharge Ordered Notes: Location: Home sb4 Problem: new sb4 Symptoms: have improved sb4 Condition: Stable sb4 Diagnosis - UTI/ Urinary tract infection, site not specified sb4 Followup: sb4 - With: Ted Martin MD - When: As needed - Reason: Recheck today's complaints, Re-evaluation by your physician Discharge Instructions: - Discharge Summary Sheet sb4 - Urinary Tract Infection, Adult, [id number] sb4 Forms: - Thank You Letter sb4 - Antibiotic Education sb4 - Patient Portal Instructions sb4 - Leadership Thank You Letter sb4 Prescriptions: - cefpodoxime 100 mg Oral Tablet - take 1 tablet ORAL route every 12 hours for 10 days take with food; 20 tablet; sb4 Refills: 0, Product Selection Permitted Signatures: Dispatcher [employer] Demi Ayala RN RN ph Bridgette Tirado PA-C PATracy sb4 Corrections: (The following items were deleted from the chart) 14:31 13:13 Orthostatics ordered. sb4 ph
[2023-09-28 14:43] LABS: Blood Morphology Comment NOT SEEN (NOT SEEN); Platelet Estimate DECR; White Blood Cell Scan OK (OK)
[2023-09-28 15:44] VITALS: BP 135/70; TEMP 97.8; O2SAT 96
--- NOTE | 2023-09-29 11:53 | EKG ---
Test Date: 2023-09-28 Test Time: 13:53:24 [place] Maker: FRIEDA MEASUREMENT RESULTS: Intervals: Rate: 74 [place]: 154 QRSD: 94 QT: 408 QTc: 452 [place]: P: 54 [place]: 154 QRS: 70 T: 57 INTERPRETIVE STATEMENTS: Normal sinus rhythm Normal ECG Compared to ECG 08/12/2022 17:20:20 Atrial fibrillation no longer present Prolonged QT interval no longer present Electronically Signed On 09-29-23 11:49:25 CDT by Steve Prasad
== END 2023-09-28 15:38 | disposition home or self-care (01) ==
LOC: ER 12:58
DX: N39.0 Urinary tract infection, site not specified (principal); Z88.5 Allergy status to narcotic agent
CPT/HCPCS: 96365; 93005; 87088; 85025; 81001; 87086; 80048; 36415; 83735; 80076; 87077; 87186; 70450; 99285; J7030; J0696

== ENCOUNTER 2024-10-01 06:52 | Inpatient (IN) | payer OTHER ==
[2024-10-01] MEDS ORDERED: PANTOPRAZOLE 40 MG INJ ONE (07:09)
[2024-10-01] MEDS ORDERED: FAMOTIDINE 20 MG/2 ML VIAL IV ONE (07:09)
[2024-10-01] MEDS ORDERED: NA CHLORIDE 0.9% 250 ML ONE (07:10)
--- NOTE | 2024-10-01 07:14 | RAD REPORT ---
EXAM: CT Ct Stroke Brain Wo Cont HISTORY: CONFUSED COMPARISON: 09/28/2023 TECHNIQUE: Multiple contiguous axial images were obtained for a CT of the brain without contrast. Sag ittal and coronal reformats were performed. One or more of the following dose reduction techniques were used: Automated exposure control, adjus tment of the mA and kV according to patient size, and iterative reconstruction. Unless otherwise specified, incidental findings do not require dedicated imaging follow-up. FINDINGS: No evidence of hydrocephalus, intracranial hemorrhage, or extra-axial fluid collection. Stable mild brain atrophy, and nonspecific moderate periventricular and deep white matter signal abn ormality suggestive of chronic microvascular ischemic changes . The calvarium is intact. The visualized paranasal sinuses and mastoid air cells are essentially clear . IMPRESSION: No evidence of acute intracranial abnormality. THIS REPORT CONTAINS FINDINGS THAT MAY BE CRITICAL TO PATIENT CARE. The findings were verbally commun icated via telephone to Hawk Alberts MD on 10/01/2024 7:11 AM.
[2024-10-01] MEDS ORDERED: NA CHLORIDE 0.9% 1,000 ML ONE (07:22)
[2024-10-01] MEDS ORDERED: CEFTRIAXONE 1000 MG/VIAL ONE (07:22)
--- NOTE | 2024-10-01 07:34 | EDPHYS ---
Physician Documentation [facility] Name: Mackenzie Cutler Age: 84 yrs Sex: Female : 1940 Arrival Date: 10/01/2024 Time: 06:52 Bed 4 Private MD: ED Physician Hawk Alberts HPI: 10/01 06:55 This 84 yrs old Female presents to ER via Unassigned with complaints of AMS. sp4 07:04 84-year-old female presents with EMS with acute altered mental status and gross blood sp4 per rectum. Patient apparently had bilious emesis. . 07:06 Patient arrives with EMS obtunded responsive to pain stimuli only , pale and altered, sp4 full ROS is not available.. Historical: - Allergies: 07:44 Morphine; bp - PMHx: 07:44 cirrhosis of liver; Hypertensive disorder; Diverticulitis; Rectal bleed; diabetes bp mellitus; Dementia; - Immunization history:: Adult Immunizations unknown. - Infectious Disease History:: Denies. - Family history:: not pertinent. - Social history:: Smoking status: unknown. ROS: 07:06 Constitutional: Negative for fever, chills, and weight loss, positive for altered sp4 mental status positive for rectal bleeding positive for vomiting 07:06 All other systems are negative, 07:06 Unable to obtain ROS due to altered mental status, Exam: 07:06 Constitutional: Frail elderly female, generalized pallor, obtunded, responds to sp4 sternal rub only Head/Face: Normocephalic, atraumatic. Eyes: Pupils equal round and reactive to light, ENT: Nares patent. No nasal discharge, no septal abnormalities noted. Tympanic membranes are normal and external auditory canals are clear. Oropharynx -pale mucous membranes Neck: Trachea midline, no thyromegaly or masses palpated, and no cervical lymphadenopathy. Supple, full range of motion without nuchal rigidity, or vertebral point tenderness. Chest/axilla: Normal chest wall appearance and motion. Nontender with no deformity. No lesions are appreciated. Cardiovascular: Regular rate and rhythm with a normal S1 and S2. No gallops, murmurs, or rubs. Normal PMI, no JVD. No pulse deficits. Respiratory: Lungs have equal breath sounds bilaterally, clear to auscultation and percussion. No rales, rhonchi or wheezes noted. No increased work of breathing, no retractions or nasal flaring. Abdomen/GI: Soft, with normal bowel sounds. No distension or tympany. No guarding or rebound. No evidence of tenderness throughout. Back: No spinal tenderness. No costovertebral tenderness. Female : Normal external genitalia. Digital rectal exam reveals dark red blood per rectum signs of colonic bleed, no mass, no hemorrhoid, no fissure, no fistula, normal anal tone Skin: Warm, dry with normal turgor. Normal color with no rashes, no lesions, and no evidence of cellulitis. MS/ Extremity: Pulses equal, no cyanosis. Neurovascular intact. Full, normal range of motion. Neuro: Patient is obtunded, responds to sternal rub only, seems to move all extremities. 07:13 ECG was reviewed by the Attending Physician. EKG 0705 normal sinus rhythm rate 81, sp4 prolonged QT otherwise normal Vital Signs: 07:01 BP 157 / 51; Pulse 57; bp 08:00 BP 148 / 71; Pulse 90; Resp 16; Temp 97.5; Pulse Ox 99% ; bp [place] Coma Score: 07:06 Eye Response: none(1). Motor Response: localizes pain(5). Verbal Response: sp4 incomprehensible(2). Total: 8. MDM: 07:11 Medical Screening Exam initiated dariel 07:12 Differential Diagnosis: CVA, electrolyte abnormality, hypoglycemia, overdose, sp4 pneumonia, seizure, sepsis, TIA, UTI, volume depletion. Data reviewed: vital signs, nurses notes, EMS record, lab test result(s), EKG, radiologic studies, CT scan, plain films. Consideration of Admission/Observation Escalation of care including admission/observation considered. Transition of care: After a detail discussion of the patient's case, care is transferred to Hawk Alberts MD. 10/01 06:55 Order name: Basic Metabolic Panel 4 10/01 06:55 Order name: CBC with Diff 4 10/01 06:55 Order name: LFT's 4 10/01 06:55 Order name: Magnesium 4 10/01 06:55 Order name: NT PRO-BNP 4 10/01 06:55 Order name: PT-INR; Complete Time: 07:58 4 10/01 06:55 Order name: Troponin HS 4 10/01 06:55 Order name: Type And Screen sp4 10/01 06:56 Order name: Type And Screen sp4 10/01 06:57 Order name: Urinalysis W/Microscopic sp4 10/01 06:57 Order name: Alcohol Level; Complete Time: 07:58 sp4 10/01 06:57 Order name: AMMONIA; Complete Time: 07:58 sp4 10/01 08:00 Interpretation: Abnormal. dariel 10/01 07:06 Order name: Lipase [facility] 10/01 07:38 Order name: Bb Add On bd 10/01 08:05 Order name: Packed RBCs (Additional Unit) EDTN 10/01 10:05 Order name: CBC Smear Scan EDTN 10/01 06:55 Order name: XRAY Chest (1 view) [facility] 10/01 07:00 Order name: Ct Stroke Brain Wo Cont; Complete Time: 07:33 EDTN 10/01 07:05 Order name: CT Chest Abdomen Pelvis W/O Contrast [facility] 10/01 07:59 Order name: Abdomen 1 View (KUB) XRAY [facility] 10/01 09:16 Order name: RAD EDTN 10/01 07:53 Order name: CONS Physician Consult [facility] 10/01 06:55 Order name: Cardiac monitoring; Complete Time: 07:33 sp4 10/01 06:55 Order name: EKG - Nurse/Tech; Complete Time: 07:42 sp4 10/01 06:55 Order name: IV Saline Lock; Complete Time: 07:33 sp4 10/01 06:55 Order name: Labs collected and sent; Complete Time: 07:33 sp4 10/01 06:55 Order name: O2 Per Protocol; Complete Time: 07:33 sp4 10/01 06:55 Order name: O2 Sat Monitoring; Complete Time: 07:33 sp4 10/01 06:57 Order name: [place]; Complete Time: 09:00 sp4 10/01 07:59 Order name: Nasogastric Tube; Complete Time: 08:48 [facility] EC:05 Rate is 81 beats/min. Rhythm is regular, Sinus Rhythm. QRS [place] is Normal. AL interval sp4 is normal. QRS interval is normal. QT interval is prolonged. No Q waves. T waves are Normal. No ST changes noted. Clinical impression: No evidence of ischemia. Interpreted by me. Administered Medications: 07:26 Drug: Pantoprazole IVP 80 mg IVP once Route: IVP; Site: left antecubital; iw 07:26 Drug: Famotidine IVP 20 mg IVP once; dilute with 10 mL 0.9% NaCl; give over 2 minutes iw Route: IVP; Site: left antecubital; 07:42 Drug: Pantoprazole IV 8 mg/hr IV at 25 ml/hr continuous; (Standard dilution is 80 mg in bp 250 mL NS) Route: IV; Rate: 25 ml/hr; Site: left jugular; 07:42 Drug: NS 0.9% IV 1000 ml IV at 1000 ml once; to be given as a bolus over 60 minutes bp Route: IV; Rate: 1000 ml; Site: left jugular; 08:15 Drug: Phytonadione Sub-Q 10 mg Sub-Q once Route: Sub-Q; Site: left upper arm; bp 08:45 Drug: Rocephin - Rocephin (cefTRIAXone) IVPB 1 grams IVPB once over 30 mins; (mix in 50 bp mL NS) Route: IVPB; Infused Over: 30 mins; Site: left antecubital; 08:48 Drug: D5-NS IV 1000 ml IV at 125 ml/hr continuous Route: IV; Rate: 125 ml/hr; Site: bp left antecubital; 08:48 Drug: Octreotide Infusion (50 mcg/hr) - (Octreotide IV 500 mcg, NS 0.9% IV 500 ml) IV bp at 50 ml/hr continuous Route: IV; Rate: 50 ml/hr; Site: left jugular; 08:55 Drug: Lactulose PO 30 grams 45 ml PO once; to NG Volume: 45 ml; Route: PO; bp Disposition Summary: 10/01/24 07:33 Hospitalization Ordered Notes: Hospitalization Status: Inpatient Admission dariel Condition: Fair dariel Problem: new dariel Symptoms: have improved dariel Bed/Room Type: Standard dariel Provider: Ted Martin(10/01/24 07:42) dariel Location: Intensive Care Unit(10/01/24 16:52) karan Room Assignment: 1-(10/01/24 16:52) karan Diagnosis - GI Bleed/ Gastrointestinal hemorrhage, unspecified - upper dariel - Weakness dariel - Unspecified cirrhosis of liver dariel - Anemia, unspecified dariel - Encephalopathy, unspecified - hepatic dariel Discharge Instructions: - Discharge Summary Sheet bd Forms: - Family Work Release bd - Medication Reconciliation Form dariel - SBAR form dariel - Leadership Thank You Letter dariel Signatures: Dispatcher [employer] EDHawk Chavis MD MD cha Williams, Irene, Raul Banda RN RN RN ja1 Ry Stearns RN RN Mariya Bradley RN RN kb3 Florentin Olivia MD MD sp4 Corrections: (The following items were deleted from the chart) 06:55 06:55 Head Brain Wo Cont+CT.RAD.BRZ ordered. EDMS EDMS 06:56 06:56 TYPE AND SCREEN+BB.LAB.BRZ ordered. EDMS EDMS 07:05 07:05 Chest Abdomen Pelvis Wo Con+CT.RAD.BRZ ordered. EDMS EDMS 07:42 07:33 Jamal Solitario cha dariel 08:39 07:33 Intensive Care Unit dariel kb3 08:39 07:33 dariel kb3 16:52 08:39 BR ER HOLD kb3 ja1 16:52 08:39 ERHOLD- kb3 ja1
[2024-10-01 07:43] LABS: Absolute Lymphocytes (CBC) 0.5 K/uL (0.7-4.9); Absolute Monocytes 0.3 K/uL (0.1-1.3); Absolute Neutrophil 6.6 K/uL (1.8-8.0); Basophils % 0.2 % (0-1.3); Eosinophils % 0.1 % (0-4.4); Hematocrit 29.6 % (36.0-45.0); Hemoglobin 10.3 g/dL (12.0-15.0); Lymphocytes % 6.2 % (15.3-44.8); MCH 34.9 pg (27.0-35.0); MCHC 34.9 g/dL (32.0-36.0); MCV 100.1 fL (80-100); MPV 8.5 fL (7.6-11.3); Monocytes % 4.4 % (3.3-12.3); Neutrophils % 89.1 % (41.7-73.7); Nucleated Red Blood Cells % 0.1 % (0-0); Platelets 129 thou/uL (152-406); RBC Red Blood Cell Count 2.96 M/uL (3.86-4.86)
[2024-10-01 07:45] LABS: PT Prothrombin Time 15.4 SECONDS (10-13.0); Protime INR 1.37
[2024-10-01] MEDS: OCTREOTIDE 500 MCG in NA CHLORIDE 0.9% 500 ML IV ONE (07:45)
[2024-10-01 08:10] LABS: AST/SGOT 20 U/L (15-37); Albumin 2.6 g/dL (3.4-5.0); Albumin/Globulin Ratio 0.7 (1.1-1.8); Alkaline Phosphatase 104 U/L (45-117); Anion Gap 12.7 mEq/L (5.0-15.0); BUN Blood Urea Nitrogen 29 mg/dL (7-18); Bicarbonate 23 mEq/L (21-32); Bilirubin Direct 0.5 mg/dL (0-0.2); Bilirubin Indirect, Calculated 0.7 mg/dL (0.2-0.8); Bilirubin Total 1.2 mg/dL (0.2-1.0); Globulin 3.9 g/dL (2.3-3.5); Glomerular Filtration Rate 44 ml/min (=/>90); Glucose Level 168 mg/dL (74-106); Magnesium 1.3 mg/dL (1.6-2.4); NT PRO-BNP 196 pg/mL (<450); Potassium 3.7 mEq/L (3.5-5.1); Protein, Total 6.5 g/dL (6.4-8.2); Sodium Level 143 mEq/L (136-145); Troponin High Sensitivity 11.7 pg/mL (<58.9)
[2024-10-01 08:11] LABS: ALT/SGPT < 14 U/L (13-56)
--- NOTE | 2024-10-01 08:22 | RAD REPORT ---
EXAMINATION: ONE VIEW CHEST XR CLINICAL INDICATION: Female, 84 years old.,CHEST PAIN TECHNIQUE: Frontal chest projection is submitted. Examination is limited by patient positioning and t echnique. COMPARISON: 08/12/2022. FINDINGS: The lungs are well inflated and clear. Left hemidiaphragm elevation, stable. No pneumothorax or sizab le effusion. The heart is normal in size. Mediastinal contours are unremarkable. IMPRESSION: No acute intrathoracic abnormalities.
[2024-10-01] MEDS ORDERED: LACTULOSE 20 GM/30 ML UCUP ONE ×2 (08:40→15:17)
[2024-10-01] MEDS ORDERED: D5 0.9 NS 1,000 ML IV ONE (08:40)
--- NOTE | 2024-10-01 08:44 | RAD REPORT ---
EXAM: CT CHEST, ABDOMEN AND PELVIS WITHOUT CONTRAST CLINICAL INDICATION: Female, 84 years old. ABDOMINAL DISTENTION TECHNIQUE: CT chest, abdomen and pelvis was performed, without IV contrast, as per department protoco l. Axial, sagittal and coronal reconstructions were obtained. One or more of the following dose reduction techniques were used: Automated exposure control, adjustment of the mA and/or kV according to the patient size, and/or iterative reconstruction. Unless otherwise specified, incidental findings do not require dedicated imaging follow-up. COMPARISON: 08/25/2022 CT abdomen and pelvis FINDINGS: The lack of intravenous contrast limits the sensitivity of this exam for evaluation of solid visceral organs, vascular structures, and retroperitoneum. Chest: LOWER NECK/CHEST WALL: Visualized thyroid gland and soft tissues are normal. LUNGS AND AIRWAYS: Airways are clear. No evidence of airspace or interstitial process. Stable nodular left lingular atelectatic changes. No nodules. Elevation of the left hemidiaphragm again seen. PLEURA: No pleural effusion. No pneumothorax. Hemidiaphragms are normally positioned. MEDIASTINUM AND LYMPH NODES: No mediastinal mass or fluid collection. Normal size mediastinal, hilar, and axillary lymph nodes. THORACIC AORTA: Normal caliber and configuration. PULMONARY ARTERIES: Normal caliber. HEART: Unremarkable. Abdomen/Pelvis LIVER: Normal in size. Nodular contour with portosystemic shunting again seen, suggesting sequelae of cirrhosis and portal hypertension. No focal lesion. GALLBLADDER/BILE DUCTS: Status post cholecystectomy. Stable prominence of the common bile duct PANCREAS: No mass, ductal dilation, or cee-pancreatic fluid. SPLEEN: Normal size. No focal lesion. ADRENALS: Normal; no mass. KIDNEYS AND URETERS: Normal size and contour. No hydronephrosis. GASTROINTESTINAL TRACT: Stomach is non-dilated. Small bowel has normal course and caliber. No colonic wall thickening or pericolonic inflammatory changes. PERITONEUM: No free fluid. LYMPH NODES: No lymphadenopathy. ABDOMINAL AORTA AND OTHER VESSELS: Normal caliber aorta and IVC. URINARY BLADDER: Normal contour. REPRODUCTIVE ORGANS: No pathologic process. MUSCULOSKELETAL: Anterior wedge compression deformity at T11 with moderate to advanced disc height lo ss and mild superior endplate compression deformity at T12, stable. Chronic appearing right humeral surgical neck fracture. ADDITIONAL FINDINGS: None IMPRESSION: No acute abnormalities in the chest, abdomen, or pelvis. Stable findings as above, including sequelae of cirrhosis and portal hypertension.
--- NOTE | 2024-10-01 09:16 | RAD REPORT ---
EXAM: XR Abdomen 1 View (KUB) HISTORY: [facility] MAIN ng placement Bed Name: 4 COMPARISON: None FINDINGS: Single view of the abdomen shows a nonspecific, nonobstructive bowel gas pattern. Enteric t ube courses along the body of the stomach. No suspicious calcifications are seen. The bones are unremarkable. IMPRESSION: Satisfactory enteric tube positioning.
[2024-10-01] MEDS ORDERED: NA CHLORIDE 0.9% 100 ML ONE (09:20)
[2024-10-01] MEDS ORDERED: VITAMIN K (ADULT) 10 MG/ML ONE (09:20)
[2024-10-01 10:04] LABS: Blood Morphology Comment NOT SEEN (NOT SEEN); Platelet Estimate ADEQ; White Blood Cell Scan OK (OK)
[2024-10-01] MEDS ORDERED: SODIUM CHLORIDE 0.9% 10ML INJ IV PRN (10:10)
[2024-10-01] MEDS: LACTULOSE 20 GM/30 ML UCUP PO SCH (10:11)
[2024-10-01] MEDS ORDERED: ACETAMINOPHEN 500 MG TAB PO PRN (10:11)
[2024-10-01] MEDS: D5 0.45 NS 1,000 ML IV SCH (10:11)
[2024-10-01] MEDS ORDERED: ONDANSETRON 4 MG/2 ML VIAL IV PRN (10:11)
[2024-10-01] MEDS: PANTOPRAZOLE INJ 80 MG in NA CHLORIDE 0.9% 250 ML IV SCH ×2 (10:11→20:10)
[2024-10-01] MEDS ORDERED: D5 0.45 NS 1,000 ML IV ONE (11:13)
--- NOTE | 2024-10-01 12:16 | EKG ---
Test Date: 2024-10-01 Test Time: 07:05:18 Mine Promotor: STACEY MEASUREMENT RESULTS: Intervals: Rate: 81 TN: 186 QRSD: 90 QT: 452 QTc: 525 Newcomb: P: 41 TN: 186 QRS: 59 T: 38 INTERPRETIVE STATEMENTS: Normal sinus rhythm Nonspecific ST abnormality Prolonged QT Abnormal ECG Compared to ECG 09/28/2023 13:53:24 ST (T wave) deviation now present Prolonged QT interval now present Electronically Signed On 10-01-24 12:15:12 CDT by Clyde Iverson
--- NOTE | 2024-10-01 13:18 | P.HP ---
Patient History Date of Service: 10/01/24 Reason for admission: COMATOSE, HAD UPPER GI BLEED. History of Present Illness: RAIN IS A PATIENT WITH CIRRHOSIS OF LIVER WHO OVERNIGHT BECAME UNCONSCIOUS PER FAMILY. SHE HAD ONE EPISODE OF UPPER GI BLEED. I SAW HER IN ER THIS AM. I TALKED TO THE FAMILY. FOLLOWING IS HER OTHER HISTORY IN PAST. Diverticulosis of intestine with bleeding [K57.91] 2019 Anoxic brain damage [G93.1 0.5] Last addressed: 08/15/2022 2020 Memory loss [R41.3] 2020 Alzheimer disease [G30.9, F02.80 0.3 0.3] stbale on memantine. try 12.5mg quetiapine for sleep/agitation stbale on memantine. try 12.5mg quetiapine for sleep/agitation Hide 2020 Urinary incontinence [R32] Bladder matters, oxybutynin 5-10mg BID Bladder matters, oxybutynin 5-10mg BID 2020 Closed left hip fracture, initial encounter [S72.009A 0.5] Last addressed: Never 2020 Dizziness [R42] 2020 Essential hypertension [I10] Allergies No Known Allergies Allergy (Verified 06/15/21 23:15) Home medications list reviewed: Yes Home Medications: Memantine HCl 10 mg PO BID 06/15/21 Spironolact/Hydrochlorothiazid [Aldactazide 25-25 Tablet] 1 each PO DAILY 08/13/22 oxyBUTYnin chloride [Oxybutynin Chloride] 5 mg PO BID 08/13/22 Cyanocobalamin/Cobamamide [Vitamin B-12 5,000 Mcg Tab Sl] 1 each SL DAILY #30 tab 08/14/22 Lactulose 30 ml PO DAILY PRN #500 ml 08/14/22 - Past Medical/Surgical History Has patient received pneumonia vaccine in the past: Yes Diabetic: No -: Hypertension -: Osteoporosis -: Diverticulitis -: Dementia -: CIRRHOSIS -: Hysterectomy -: Cholecystectomy -: Bladder surgery -: Rectal surgery - colon tear (2016) -: total hip replacement - Family History Brother -: Diabetes Sister -: Diabetes Father -: Heart disease Notes: Mother -: Heart disease Notes: - Social History Smoking Status: Unknown if ever smoked Alcohol use: No CD- Drugs: No Caffeine use: Yes Place of Residence: Home Review of Systems is unable to be obtained (COMATOSE.) Physical Examination - Physical Exam General: Comatose HEENT: Other (DEHYDRATED. NOT RESPONDING TO VERBAL COMMAND.) Neck: Supple, 2+ carotid pulse no bruit, No LAD, Without JVD or thyroid abnormality Respiratory: Diminished Cardiovascular: Regular rate/rhythm, Normal S1 S2 Gastrointestinal: Normal bowel sounds, No tenderness Musculoskeletal: No tenderness Integumentary: No rashes Neurological: Other (COMATOSE, UNRESPONSIVE.) Lymphatics: No axilla or inguinal lymphadenopathy - Studies Laboratory Data (last 24 hrs) 10/01/24 10/01/24 10/01/24 07:20 07:20 07:20 WBC 7.40 Hgb 10.3 L Hct 29.6 L Plt Count 129 L PT 15.4 H INR 1.37 Sodium 143 Potassium 3.7 BUN 29 H Creatinine 1.22 H Glucose 168 H Magnesium 1.3 L Total Bilirubin 1.2 H AST 20 ALT < 14 Alkaline Phosphatase 104 Assessment and Plan - Problems (Diagnosis) (1) Hepatic encephalopathy Current Visit: Yes Status: Acute Plan: I ASKED NURSES TO PLACE IN [place] BUT IT WAS NOT POSSIBLE. DR. GARCIA INSERTED NGT AND WE STARTED LACTULOSE QID ALSO ONE DOSE OF IV ABX GIVEN IN ER. I CALLED DR. MAX AND DR SMITH TO SEE HER URGENTLY. PROGNOSIS IS POOR. I TALKED TO 2 DAUGHTERS AND ONE SON WITH SISTER ABOUT HER PROGNOSIS. I ADVISED DNR STATUS. THEY WILL DECIDE. FISH AND WILDLIFE SCIENTIFIC AID CONSULT WRITTEN. NO OBVIOUS INFECTION NOTED BUT APSIRATION IS POSSIBLE. - Advance Directives Does patient have a Living Will: No Does patient have a Durable POA for Healthcare: No
--- NOTE | 2024-10-01 18:21 | ER ---
Nurse's Notes [facility] Name: Mackenzie Cutler Age: 84 yrs Sex: Female : 1940 Arrival Date: 10/01/2024 Time: 06:52 Bed 4 Private MD: Diagnosis: GI Bleed/ Gastrointestinal hemorrhage, unspecified-upper ;Weakness;Unspecified cirrhosis of liver;Anemia, unspecified;Encephalopathy, unspecified-hepatic Presentation: 10/01 07:00 Chief complaint: toned out for AMS , last normal 10 pm last night, pt with dark iw stool/GI bleed. Coronavirus screen: At this time, the client does not indicate any symptoms associated with coronavirus-19. Ebola Screen: No symptoms or risks identified at this time. Initial Sepsis Screen: Does the patient meet any 2 criteria? No. Patient's initial sepsis screen is negative. Does the patient have a suspected source of infection? No. Patient's initial sepsis screen is negative. Risk Assessment: Do you want to hurt yourself or someone else? Patient reports no desire to harm self or others. Onset of symptoms was October 01, 2024. 07:00 Method Of Arrival: EMS: [facility] iw 07:00 Acuity: KAREN 2 iw Triage Assessment: 07:00 General: Appears distressed, unkempt, Behavior is listless. Pain: Unable to use pain bp scale. Patient is unresponsive. EENT: No deficits noted. Neuro: Level of Consciousness is obtunded, Oriented to none. Cardiovascular: Rhythm is sinus bradycardia. Respiratory: No deficits noted. GI: Abdomen is non-distended. : No signs and/or symptoms were reported regarding the genitourinary system. Derm: No deficits noted. Musculoskeletal: No deficits noted. Historical: - Allergies: 07:44 Morphine; bp - PMHx: 07:44 cirrhosis of liver; Hypertensive disorder; Diverticulitis; Rectal bleed; diabetes bp mellitus; Dementia; - Immunization history:: Adult Immunizations unknown. - Infectious Disease History:: Denies. - Family history:: not pertinent. - Social history:: Smoking status: unknown. Screenin:44 [facility] [place] ED Fall Risk Assessment (Adult) History of falling in the last 3 months, bp including since admission No falls in past 3 months (0 pts) Confusion or Disorientation Yes (5 pts) Intoxicated or Sedated No (0 pts) Impaired Gait No (0 pts) Mobility Assist Device Used No (0 pt) Altered Elimination Yes (1 pt) Score/Fall Risk Level 3 or more points = High Risk Oriented to surroundings. Abuse screen: Denies threats or abuse. Denies injuries from another. Nutritional screening: No deficits noted. Tuberculosis screening: No symptoms or risk factors identified. Assessment: 07:00 General: SEE TRIAGE NOTE. bp 08:00 Reassessment: No changes from previously documented assessment. Patient is alert, bp oriented x 3, equal unlabored respirations, skin warm/dry/pink. Vital Signs: 07:01 BP 157 / 51; Pulse 57; bp 08:00 BP 148 / 71; Pulse 90; Resp 16; Temp 97.5; Pulse Ox 99% ; bp Judy Coma Score: 07:06 Eye Response: none(1). Motor Response: localizes pain(5). Verbal Response: sp4 incomprehensible(2). Total: 8. ED Course: 06:53 Patient arrived in ED. kmf 06:54 Florentin Olivia MD is Attending Physician. sp4 07:00 Arm band placed on. bp 07:01 Ct Stroke Brain Wo Cont In Process Unspecified. EDMS 07:11 Attending Physician role handed off by Florentin Olivia MD dariel 07:11 Hawk Alberts MD is Attending Physician. dariel 07:11 Initial lab(s) drawn, by me, sent to lab. EKG done, by ED staff, reviewed by Hawk Alberts MD T\T\S collected, blood band applied to patient. Inserted saline lock: 20 gauge in left EJ, using aseptic technique. Blood collected. Maintain EMS IV. Dressing intact. Good blood return noted. Site clean \T\ dry. Gauge \T\ site: 18 LAC. Flushed with 10 mL NS. 07:21 Jamal Solitario MD is Hospitalizing Provider. dariel 07:27 XRAY Chest (1 view) In Process Unspecified. EDMS 07:35 Triage completed. iw 07:37 CT Chest Abdomen Pelvis W/O Contrast In Process Unspecified. EDMS 07:42 yR Stearns, ERIK is Primary Nurse. bp 07:42 Ted Martin MD is Hospitalizing Provider. dariel 07:44 Patient has correct armband on for positive identification. bp 07:46 Provided Education on: NA. bp 08:30 Hemphill cath inserted, using sterile technique, 16 Fr., by geography teacher, balloon inflated, to bp gravity drainage, urine specimen collected. NGT: inserted 16 Fr. via left nare. verified placement of air over stomach, verified return of gastric contents, to intermittent suction. Returned bile. Patient tolerated well. 08:56 No provider procedures requiring assistance completed. Patient admitted, IV remains in bp place. 09:00 Type And Screen Sent. bp Administered Medications: 07:26 Drug: Pantoprazole IVP 80 mg IVP once Route: IVP; Site: left antecubital; iw 07:26 Drug: Famotidine IVP 20 mg IVP once; dilute with 10 mL 0.9% NaCl; give over 2 minutes iw Route: IVP; Site: left antecubital; 07:42 Drug: Pantoprazole IV 8 mg/hr IV at 25 ml/hr continuous; (Standard dilution is 80 mg in bp 250 mL NS) Route: IV; Rate: 25 ml/hr; Site: left jugular; 07:42 Drug: NS 0.9% IV 1000 ml IV at 1000 ml once; to be given as a bolus over 60 minutes bp Route: IV; Rate: 1000 ml; Site: left jugular; 08:15 Drug: Phytonadione Sub-Q 10 mg Sub-Q once Route: Sub-Q; Site: left upper arm; bp 08:45 Drug: Rocephin - Rocephin (cefTRIAXone) IVPB 1 grams IVPB once over 30 mins; (mix in 50 bp mL NS) Route: IVPB; Infused Over: 30 mins; Site: left antecubital; 08:48 Drug: D5-NS IV 1000 ml IV at 125 ml/hr continuous Route: IV; Rate: 125 ml/hr; Site: bp left antecubital; 08:48 Drug: Octreotide Infusion (50 mcg/hr) - (Octreotide IV 500 mcg, NS 0.9% IV 500 ml) IV bp at 50 ml/hr continuous Route: IV; Rate: 50 ml/hr; Site: left jugular; 08:55 Drug: Lactulose PO 30 grams 45 ml PO once; to NG Volume: 45 ml; Route: PO; bp Medication: 07:44 VIS not applicable for this client. bp Outcome: 07:33 Decision to Hospitalize by Provider. dariel 09:39 Admitted to ER Hold. Please see [facility] for further documentation. bp 09:39 Condition: stable 09:39 Instructed on the need for admit, 18:20 Patient left the ED. [email or web address] Signatures: Dispatcher [employer] EDHawk Chavis MD MD cha Williams, Irene, RN RN iw Tigre Pisano RN RN jl7 Ry Stearns RN RN bp Potepalov, Sergey, MD MD 4 Lizabeth Marino [facility] Corrections: (The following items were deleted from the chart) 08:56 08:00 BP 148 / 71; Pulse 90bpm; Resp 16bpm; Pulse Ox 99%; bp bp
[2024-10-01 18:48] LABS: Hematocrit 27.1 % (36.0-45.0); Hemoglobin 9.8 g/dL (12.0-15.0)
[2024-10-01] MEDS: OCTREOTIDE 500 MCG in NA CHLORIDE 0.9% 500 ML IV SCH (20:09)
[2024-10-01] MEDS: Rifaximin 550 MG Tab PO SCH (20:45)
[2024-10-01] MEDS: CEFEPIME 2 GM in NA CHLORIDE 0.9% 100 ML IV SCH (20:46)
[2024-10-01] MEDS ORDERED: PANTOPRAZOLE 40 MG INJ IVP SCH (21:00)
[2024-10-02 06:01] LABS: Absolute Eosinophils 0.1 K/uL (0-0.5); Absolute Lymphocytes (CBC) 1.6 K/uL (0.7-4.9); Absolute Monocytes 0.7 K/uL (0.1-1.3); Absolute Neutrophil 4.9 K/uL (1.8-8.0); Basophils % 0.4 % (0-1.3); Eosinophils % 1.5 % (0-4.4); Hemoglobin 8.7 g/dL (12.0-15.0); Lymphocytes % 22.5 % (15.3-44.8); MCH 34.9 pg (27.0-35.0); MCV 99.7 fL (80-100); MPV 8.7 fL (7.6-11.3); Monocytes % 9.1 % (3.3-12.3); Neutrophils % 66.5 % (41.7-73.7); Platelets 108 thou/uL (152-406); RBC Red Blood Cell Count 2.51 M/uL (3.86-4.86); Red Cell Distribution Width 13.5 % (12.1-15.2)
[2024-10-02 06:15] LABS: Albumin 2.1 g/dL (3.4-5.0); Albumin/Globulin Ratio 0.7 (1.1-1.8); Anion Gap 8.8 mEq/L (5.0-15.0); Bilirubin Direct 0.4 mg/dL (0-0.2); Bilirubin Indirect, Calculated 0.6 mg/dL (0.2-0.8); Potassium 2.8 mEq/L (3.5-5.1); Protein, Total 5.1 g/dL (6.4-8.2)
--- NOTE | 2024-10-02 12:27 | P.CNS ---
Date of Consult: 10/01/24 Reason for Consult: Altered mental status GI bleeding Chief Complaint: COMATOSE, HAD UPPER GI BLEED. History of Present Illness: Patient is 84 years of age with a history of cirrhosis of liver prior history of variceal bleeding daughter at the bedside patient is alert unresponsive little agitated accordingly patient had a significant GI bleed and it appeared in the hospital the third time that this is happened the last time she was transferred out to [place]*2Last time she was seen by GI here twice patient has a history of dementia can eat talk and walk self caring no history of fever or chills does not drink alcohol Allergies No Known Allergies Allergy (Verified 06/15/21 23:15) Home Medications: Memantine HCl 10 mg PO BID 06/15/21 Spironolact/Hydrochlorothiazid [Aldactazide 25-25 Tablet] 1 each PO DAILY 08/13/22 oxyBUTYnin chloride [Oxybutynin Chloride] 5 mg PO BID 08/13/22 Cinacalcet HCl [Sensipar] 30 mg PO DAILY 10/01/24 Escitalopram [Lexapro] 5 mg PO BID 10/01/24 - Past Medical/Surgical History Diabetic: No -: Hypertension -: Osteoporosis -: Diverticulitis -: Dementia -: CIRRHOSIS -: Hysterectomy -: Cholecystectomy -: Bladder surgery -: Rectal surgery - colon tear (2017) -: total hip replacement - Family History Brother Medical History: Diabetes Sister Medical History: Diabetes Father Medical History: Heart disease Notes: Mother Medical History: Heart disease Notes: - Social History Smoking Status: Unknown if ever smoked Alcohol use: No CD- Drugs: No Caffeine use: Yes Place of Residence: Home Review of Systems is unable to be obtained Physical Examination Temp Pulse Resp BP Pulse Ox 99.6 F 70 12 134/76 100 10/02/24 12:00 10/02/24 09:00 10/02/24 12:00 10/02/24 12:00 10/02/24 12:00 General: Alert, Unresponsive Respiratory: Clear to auscultation bilaterally Cardiovascular: No edema, Regular rate/rhythm, Normal S1 S2 Gastrointestinal: Normal bowel sounds, Soft and benign Laboratory Data (last 24 hrs) 10/01/24 07:20 Lipase 28 - Problems (1) GI bleed Current Visit: No Status: Acute Plan: Patient is 84 years of age with a history of dementia cirrhosis of the liver history of variceal bleeding admitted with altered mental status GI bleeding most likely this is from varices labs chemistries reviewed hemoglobin is so far stable at the time of my evaluation at noon patient had not had any further bleeding use to remain altered intermittent likely encephalopathic from her liver disease patient is hypokalemic plan to admit IV octreotide PPI GI consultation IV antibiotic patient's vital signs are stable oxygenation satisfactory prognosis poor most likely benefit from hospice care 1 dose of vitamin K and thiamine Qualifiers: GI bleed type/associated pathology: melena Qualified Code(s): K92.1 - Melena
[2024-10-02] MEDS: THIAMINE 200 MG/2 ML INJ IVP SCH (13:10)
[2024-10-02] MEDS: VITAMIN K (ADULT) 10 MG/ML SQ ONE (13:10)
[2024-10-02] MEDS: PANTOPRAZOLE INJ 80 MG in NA CHLORIDE 0.9% 250 ML IV SCH (16:27)
[2024-10-02] MEDS: OCTREOTIDE 500 MCG in NA CHLORIDE 0.9% 500 ML IV SCH (16:59)
--- NOTE | 2024-10-02 17:51 | P.PN ---
Subjective Date of Service: 10/02/24 Chief Complaint: COMATOSE, HAD UPPER GI BLEED. Subjective: No new changes RIAN CAME WITH OBTUNDATION, UPPER GI BLEED AND AMMONIA OF 177. SHE IS ON LACTULOSE VIA NGT AND XIFAXAN WITH NO RESPONSE SO FAR. SHE IS STILL UNRESPONSIVE. I TALKED TO MANY FAMILY MEMBERS TODAY. DAUGHTER AT BEDISDE AND NURSE GRAND DAUGHTER AND LATER AT LUNCH TIME SON CALLED AND MANY OTHER FAMILY MEMBERS LISTENED.. THEY WANT DNR STATUS. THEY WANTED EEG AND SO I CONSULTED DR. LAUREN ALSO FOR SECOND OPINION. Review of Systems is unable to be obtained Physical Examination - Vital Signs Temperature: 98.7 F Blood Pressure: 150/62 Pulse: 74 Respirations: 16 Pulse Ox (%): 100 - Physical Exam General: Alert, In no apparent distress, Comatose (BARELY ANY RESPONSE TO PAINFUL STIMULUS. PUPILS ARE NOT REACTING AND EYEBALLS HAVE SIDE TO SIDE MOVE MENT.) HEENT: Atraumatic, PERRLA, EOMI Neck: Supple, JVD not distended Respiratory: Clear to auscultation bilaterally, Normal air movement Cardiovascular: Regular rate/rhythm, Normal S1 S2 Gastrointestinal: Normal bowel sounds, No tenderness Musculoskeletal: No tenderness Integumentary: No rashes Neurological: Other (COMATOSE.) Lymphatics: No axilla or inguinal lymphadenopathy - Studies Medications List Reviewed: Yes Assessment And Plan - Current Problems (Diagnosis) (1) Hepatic encephalopathy Current Visit: Yes Status: Acute Plan: I ASKED NURSES TO PLACE IN [place] BUT IT WAS NOT POSSIBLE. DR. GARCIA INSERTED NGT AND WE STARTED LACTULOSE QID ALSO ONE DOSE OF IV ABX GIVEN IN ER. I CALLED DR. MAX AND DR SMITH TO SEE HER URGENTLY. PROGNOSIS IS POOR. I TALKED TO 2 DAUGHTERS AND ONE SON WITH SISTER ABOUT HER PROGNOSIS. I ADVISED DNR STATUS. THEY WILL DECIDE. FROG CATCHER CONSULT WRITTEN. NO OBVIOUS INFECTION NOTED BUT APSIRATION IS POSSIBLE. NO RESPONSE TO LACTULOSE SO FAR. DISCUSSED WITH FAMILY IN DETAIL TWICE. I ASKED THEM TO WAIT ONE MORE DAY TO SEE IF SHE GETS BETTER. THEY ARE THINKING ABOUT HOSPICE BUT WILL DECIDE TOMORROW. (2) Hypokalemia Current Visit: Yes Status: Acute Plan: REPLACE K PER PROTOCOL. (3) Upper GI bleed Current Visit: Yes Status: Acute Plan: CONT PTORONIX IV. SHE IS IN A VERY POOR SHAPE TO GO FOR ANY INVASIVE PROCEDURE. DR. SMITH AGREES WITH DIAGNOSIS OF HEPATIC ENCEPHALOPATHY.
--- NOTE | 2024-10-02 18:40 | RAD REPORT ---
Exam:Abdomen 1 View (KUB) Clinical history: Nasogastric tube placement FINDINGS: Tip of a nasogastric tube either lies within the distal stomach or duodenal bulb.
[2024-10-02] MEDS: MORPHINE 2 MG/ML SYR IV PRN (18:53)
[2024-10-02] MEDS: KCL 20 MEQ/100 mL IVPB 20 MEQ/100 ML BAG IV SCH (20:32)
--- NOTE | 2024-10-02 22:39 | CON ---
Reason For Consultation: Consultation called because of altered mental status. History Of Present Illness: Ms. Cutler is an 84-year-old patient with cirrhosis of the liver, hyper tension, diverticulitis, GI bleed, diabetes mellitus, and moderate dementia. The patient's family pr ovided information and chart reviewed as well. The patient for at least a year. She has had significant cognitive impairment requiring help for some activities of daily living, but did do s ome basic things, interact and recognize family members. However, she developed more confusion, diso rientation, and was brought to [facility] with gross bleeding per rectum, bilious emesis, an d was found to be pale and altered and only responded to painful stimuli. Laboratory studies again d id show normal white blood cell count, hemoglobin today down to 8.7, INR 1.37. She had blood work sh owing ammonia level elevated to 177. Her creatinine up to 1.22 and magnesium low at 1.3, calcium low at 8.2 and potassium was down to 2.8. Toxicology screen negative. CT scan of her head showed no ac belkofski ischemic hemorrhagic changes. Study showed moderate atrophy with small vessel ischemic disease. The patient is in the ICU, not intubated, spontaneously moving arms and legs. She is resting in bed at the time of my evaluation. Past Medical History: As noted. Allergies: MORPHINE. Social History: No alcohol, tobacco, or IV drug use. Family is involved in her care and many family members are present and assists her. Review of Systems: Family members noted she prior to this episode had no fevers or chills. There is nausea, vomiting, a nd GI bleeding that has been ongoing. Current Medications: Tylenol 650 every 6 hours as needed, cefepime 2 g every 12 hours, lactulose 20 g 3 times daily, morphine 2 mg every 4 hours as needed, octreotide acetate 500 mcg IV every 10 hours scheduled, Zofran 4 mg every 6 hours, pantoprazole 80 mg every 10 hours, potassium 20 mEq every 2 namrata rs as needed, rifaximin 550 mg twice daily, and thiamine 200 mg twice daily. Physical Examination: Vital Signs: Blood pressure 115/67, pulse 81, respiratory rate 14 to 19, temperature 98.7, oxygen sa turation 100% on room air. Weight 158 pounds, height 5 feet 1 inch, BMI 29.1. General: Ms. Cutler again is resting up in the ICU. She does close the eyes when hands come toward s the face with visual threat response. She does stand and withdrawal focally when stimulating the a alfred and legs. She did not give any spontaneous speech, did not answer any questions or follow any co mmands. She does have increased tone in the upper and lower extremities with paratonia noted. Good air movement and no significant edema or cyanosis in the lower extremities. Assessment: Ms. Cutler is an 84-year-old patient in the unit with significant metabolic encephalopa thy, very elevated ammonia level. She has electrolyte abnormalities. She also was mildly dehydrated . She is on antibiotics for presumed systemic infection. There should be an EEG pending and will be reviewed in the morning. Plan: Continue with supportive care. We will follow up on EEG to determine if there is any epilepti form activity. However, she is expected to show that it is slow background with triphasic waves cons istent with metabolic encephalopathy. The patient will be followed while in ICU. LB/MODL Voice ID: [id number] Report ID: [id number]
[2024-10-03 07:20] LABS: Absolute Eosinophils 0.3 K/uL (0-0.5); Absolute Lymphocytes (CBC) 2.1 K/uL (0.7-4.9); Absolute Monocytes 0.8 K/uL (0.1-1.3); Absolute Neutrophil 5.3 K/uL (1.8-8.0); Basophils % 0.3 % (0-1.3); Eosinophils % 3.7 % (0-4.4); Hematocrit 28.5 % (36.0-45.0); Hemoglobin 9.8 g/dL (12.0-15.0); MCH 34.8 pg (27.0-35.0); MCHC 34.6 g/dL (32.0-36.0); MCV 100.7 fL (80-100); MPV 8.3 fL (7.6-11.3); Monocytes % 9.1 % (3.3-12.3); Neutrophils % 61.9 % (41.7-73.7); Nucleated Red Blood Cells % 0.1 % (0-0); Platelets 105 thou/uL (152-406); RBC Red Blood Cell Count 2.83 M/uL (3.86-4.86); Red Cell Distribution Width 13.9 % (12.1-15.2)
[2024-10-03 07:42] LABS: Anion Gap 9.2 mEq/L (5.0-15.0); Potassium 3.2 mEq/L (3.5-5.1)
[2024-10-03] MEDS: POTASSIUM 25 MEQ EFFERV TAB PO ONE (08:31)
[2024-10-03] MEDS: CLONIDINE 0.2 MG/PATCH TD SCH (10:36)
--- NOTE | 2024-10-03 20:21 | RAD REPORT ---
EXAM: AP view(s) of the abdomen Abdomen 1 View (KUB) HISTORY: Dobhoff placement COMPARISON: 10/02/2024 FINDINGS: Nonobstructive bowel gas pattern.. Weighted feeding tube tip overlies the distal stomach and suspect ed position. No suspicious calcifications are seen. No acute osseous abnormality. Other: n/a IMPRESSION: Weighted feeding tube in the distal stomach. Nonobstructive bowel gas pattern.
[2024-10-03] MEDS: JEVITY 1.5 CAL LIQUID 1,000 ML BOT FT SCH (20:37)
[2024-10-03] MEDS: WATER FOR INJ,STERILE 10 ML IM PRN (22:02)
[2024-10-03] MEDS: ZIPRASIDONE MESYLA 20 MG/VIAL IM PRN (22:02)
[2024-10-03] MEDS: METOPROLOL TARTRATE 5 MG/5 ML INJ IV SCH (22:02)
[2024-10-04 06:07] LABS: Absolute Basophils 0.1 K/uL (0-0.5); Absolute Eosinophils 0.4 K/uL (0-0.5); Absolute Lymphocytes (CBC) 1.8 K/uL (0.7-4.9); Absolute Monocytes 0.7 K/uL (0.1-1.3); Absolute Neutrophil 4.1 K/uL (1.8-8.0); Albumin 2.2 g/dL (3.4-5.0); Albumin/Globulin Ratio 0.6 (1.1-1.8); Anion Gap 9.4 mEq/L (5.0-15.0); Bilirubin Direct 0.4 mg/dL (0-0.2); Bilirubin Indirect, Calculated 0.9 mg/dL (0.2-0.8); Bilirubin Total 1.3 mg/dL (0.2-1.0); Eosinophils % 6.1 % (0-4.4); Globulin 3.4 g/dL (2.3-3.5); Hematocrit 31.2 % (36.0-45.0); Hemoglobin 11.1 g/dL (12.0-15.0); MCH 35.1 pg (27.0-35.0); MCHC 35.5 g/dL (32.0-36.0); MCV 98.9 fL (80-100); Monocytes % 9.3 % (3.3-12.3); Neutrophils % 58.6 % (41.7-73.7); Nucleated Red Blood Cells % 0.1 % (0-0); Platelets 59 thou/uL (152-406); Potassium 3.4 mEq/L (3.5-5.1); Protein, Total 5.6 g/dL (6.4-8.2); RBC Red Blood Cell Count 3.16 M/uL (3.86-4.86); Red Cell Distribution Width 13.8 % (12.1-15.2)
[2024-10-04 06:09] LABS: Magnesium 0.8 mg/dL (1.6-2.4)
[2024-10-04 08:12] LABS: Blood Morphology Comment NOT SEEN (NOT SEEN); Platelet Estimate DECR; White Blood Cell Scan OK (OK)
--- NOTE | 2024-10-04 09:18 | P.PN ---
Subjective Date of Service: 10/03/24 Chief Complaint: COMATOSE, HAD UPPER GI BLEED. Subjective: Worsening RIAN CAME WITH OBTUNDATION, UPPER GI BLEED AND AMMONIA OF 177. SHE IS ON LACTULOSE VIA NGT AND XIFAXAN WITH NO RESPONSE SO FAR. SHE IS STILL UNRESPONSIVE. I TALKED TO MANY FAMILY MEMBERS TODAY. DAUGHTER AT [place] AND NURSE GRAND DAUGHTER AND LATER AT LUNCH TIME SON CALLED AND MANY OTHER FAMILY MEMBERS LISTENED.. THEY WANT DNR STATUS. THEY WANTED EEG AND SO I CONSULTED DR. LAUREN ALSO FOR SECOND OPINION. PATIENT IS NOT WAKING UP. SHE IS COMATOSE. FIRST FAMILY WANTED HOSPICE AT HOME WITH TPN OR TUBE FEEDING. I EXPLAINED THAT TUBE FEEDING MAY BE POSSIBLE. THEY CHOSE [facility] BUT LATER SON CALLED IN THE EVENING AND ASKED HER TO BE TRANSFERRED TO [facility] FOR SECOND OPINION. [facility] DOES NOT TAKE PATIENTS AFTER 5 PM SO WE WAIT UNTIL MONDAY 9 AM. I OFFERED . [facility] IN [place] BUT THEY WANT LOCAL HOSPITAL ONLY. Review of Systems is unable to be obtained Physical Examination - Vital Signs Temperature: 97.4 F Blood Pressure: 143/67 Pulse: 62 Respirations: 8 Pulse Ox (%): 99 - Physical Exam General: Comatose (AGITATED AND NEEDS TO BE SEDATED.) HEENT: Atraumatic, PERRLA, Other (PUPILS NOT REACTIVE.), EOMI Neck: Supple, JVD not distended, Other (HAS DOBHOFF TUBE FOR FEEDING.) Respiratory: Clear to auscultation bilaterally, Normal air movement Cardiovascular: Regular rate/rhythm, Normal S1 S2 Musculoskeletal: No tenderness Integumentary: No rashes Neurological: Other (COMATOSE, MAY MOVE A LITTLE WITH PAINFUL STIMULUS.) Lymphatics: No axilla or inguinal lymphadenopathy - Studies Medications List Reviewed: Yes Assessment And Plan - Current Problems (Diagnosis) (1) Hepatic encephalopathy Current Visit: Yes Status: Acute Plan: PROGNOSIS IS POOR SHE IS NOT AROUSABLE TO A SIGNIFICANT LEVEL. FAMILY WANTS [facility] FOR SEC OPINION. SHE IS COMATOSE AND CARRIES A POOR PROGNOSIS. (2) Hypokalemia Current Visit: Yes Status: Acute Plan: REPLACE K PER PROTOCOL. (3) Upper GI bleed Current Visit: Yes Status: Acute Plan: CONT PTORONIX IV. SHE IS IN A VERY POOR SHAPE TO GO FOR ANY INVASIVE PROCEDURE. DR. SMITH AGREES WITH DIAGNOSIS OF HEPATIC ENCEPHALOPATHY. (4) Electrolyte imbalance Current Visit: Yes Status: Acute Plan: THIS IS STEMMING FROM POOR CONDITION. LOW MAG LOW CALCIUM, CORRECTED CALCIUM FOR LOW ALBUMIN IS ABOUT 7.5. PROGNOSIS IS POOR. FAMILY UNDERSTANDS BUT WANTS SECOND OPINION.
--- NOTE | 2024-10-04 10:02 | P.PN ---
Subjective Date of Service: 10/04/24 Chief Complaint: COMATOSE, HAD UPPER GI BLEED. Subjective: Worsening PATIENT IS NOT WAKING UP. SHE IS COMATOSE. FIRST FAMILY WANTED HOSPICE AT HOME WITH TPN OR TUBE FEEDING. I EXPLAINED THAT TUBE FEEDING MAY BE POSSIBLE. THEY [facility]OSE [facility] BUT LATER SON CALLED IN THE EVENING AND ASKED HER TO BE TRANSFERRED TO [facility] FOR SECOND OPINION. [facility] DOES NOT TAKE PATIENTS AFTER 5 PM SO WE WAIT UNTIL MONDAY 9 AM. I OFFERED . [facility] IN [place] BUT THEY WANT LOCAL HOSPITAL ONLY. CONDITION IS HE SAME OR WORSE. Review of Systems is unable to be obtained Physical Examination - Vital Signs Temperature: 97.4 F Blood Pressure: 157/58 Pulse: 58 Respirations: 8 Pulse Ox (%): 99 - Physical Exam General: Comatose HEENT: Atraumatic, PERRLA, EOMI Neck: Supple, JVD not distended Respiratory: Clear to auscultation bilaterally, Normal air movement Cardiovascular: Regular rate/rhythm, Normal S1 S2 Gastrointestinal: Normal bowel sounds, No tenderness Musculoskeletal: No tenderness Integumentary: No rashes Neurological: Other (SOME MOVEMENT ON PAINFUL STUMULUS. HAS BEEN FED BY ROGERIO TUBE.) Lymphatics: No axilla or inguinal lymphadenopathy - Studies Medications List Reviewed: Yes Assessment And Plan - Current Problems (Diagnosis) (1) Hepatic encephalopathy Current Visit: Yes Status: Acute Plan: PROGNOSIS IS POOR COMATOSE. BARELY AND MOVEMNENT WITH PAINFUL STIMULUS FAMILY WANTS TRANSFER TO [facility] FOR SECOND OPINION. I TALKED TO DR LAUREN AGAIN TO GET HIM TO TALK TO FAMILY TO GIVE THEM HIS OPINION A NEUROLOGIST. I TALKED TO DISCHARGE PLANNERS TO COMMUNICATE WITH FAMILY ABOUT TRANSFER PROCESS TO [facility]. (2) Hypokalemia Current Visit: Yes Status: Acute Plan: REPLACE K PER PROTOCOL. (3) Upper GI bleed Current Visit: Yes Status: Acute Plan: CONT PTORONIX IV. SHE IS IN A VERY POOR SHAPE TO GO FOR ANY INVASIVE PROCEDURE. DR. SMITH AGREES WITH DIAGNOSIS OF HEPATIC ENCEPHALOPATHY. (4) Electrolyte imbalance Current Visit: Yes Status: Acute Plan: THIS IS STEMMING FROM POOR CONDITION. LOW MAG LOW CALCIUM, CORRECTED CALCIUM FOR LOW ALBUMIN IS ABOUT 7.5. PROGNOSIS IS POOR. FAMILY UNDERSTANDS BUT WANTS SECOND OPINION.
[2024-10-04] MEDS: Magnesium Sulfate 2gm IVPB 2 G/50 ML BAG IV ONE (10:38)
[2024-10-04] MEDS: MAGNESIUM SULFATE 1 gm IVPB 1 GM/100 ML BAG IV ONE (14:14)
--- NOTE | 2024-10-04 15:08 | EEG ---
CHART: [id number] TEST ID#: [id number] DATE OF STUDY: 10/02/2024 THE EEG WAS RECORDED PORTABLE IN THE ICU ON A 17 CHANNEL MACHINE. ELECTRODES WERE APPLIED IN THE USUAL MANNER USING THE INTERNATIONAL 10-20 SYSTEM. THE WAKING BACKGROUND RHYTHM IN THIS RECORD CONSISTS OF POORLY DEVELOPED AND POORLY ORGANIZED WAVES OF 1.5-5 HZ., IN A WIDE DISTRIBUTION WHICH ATTENUATE NORMALLY WITH EYE OPENING. MODERATE VOLTAGE DIAPHASIC AND TRIPHASIC ACTIVITY IS DIFFUSELY EXPRESSED. THERE ARE NO FOCAL OR LATERALIZING FEATURES. NO EPILEPTIFORM ACTIVITY APPEARS. SLEEP DID NOT OCCUR. HYPERVENTILATION WAS NOT PERFORMED. PHOTIC STIMULATION PRODUCED NO DRIVING BILATERALLY. IMPRESSION: THIS IS A MODERATELY ABNORMAL ROUTINE EEG DUE TO A MODERATELY SLOW BACKGROUND AND THE PRESENCE OF DIAPHASIC AND TRIPHASIC SHARP WAVES. THESE FINDINGS ARE CONSISTENT WITH A MODERATE DIFFUSE BUT NONSPECIFIC DISTURBANCE IN CEREBRAL ACTIVITY. SUCH FINDING MAY BE SEEN IN METABOLIC, TOXIC OR HYPOXIC-ISCHEMIC DYSFUNCTION.
[2024-10-04] MEDS: POTASSIUM 25 MEQ EFFERV TAB PO SCH (19:41)
--- NOTE | 2024-10-04 21:05 | PN ---
Date of Progress Note: 10/04/2024 Subjective: Ms. Cutler is still in ICU. She has NG tube in place, has tube feedings, IV fluids als o given. She was not opening her eyes spontaneously, but to stimulation. She would tend to close he r eyes more tightly. This is bilaterally and symmetrically. She also would move the arms and legs w hen stimulated in a focal manner, but no purposeful movements in terms of following instructions to m ove arms and legs was done and again no response in terms of opening and closing eyes verbally, but w ould try to close the eyes more tightly when approached. Review of Systems: No current fevers or chills. The patient does have some restraints on the arms, but otherwise she is not noted to have rash. No change in the appearance of her tone and no change in terms of her abdom inal issues and respiratory issues. Laboratory Studies: White blood cell count 7.1, hemoglobin 11.1, platelets are 59. INR 1.37. Today , she has severe hypocalcemia of 6.4. Magnesium severely low at 0.8. Glucose 129. Potassium low at 3.4. Chloride 113, BUN of 6, creatinine 0.82. Her AST is 116, ALT 34, alkaline phosphate is 96. A mmonia now is normal at 53. Highest ammonia was 177 two days ago. Her alcohol level was less than 1 0 on 10/01. A KUB study on 10/03/2024 showed weighted feeding tube in the distal stomach. Nonobstructive bowel g as pattern. Assessment: Ms. Cutler is an 84-year-old patient with metabolic encephalopathy. She does have sign ificantly improved ammonia level, but markedly abnormal electrolytes, which include hypocalcemia and significant hypomagnesemia. She does have some elevated liver enzymes of AST 116. Her potassium is low at 3.4. She did have a routine EEG study, showed moderately to severely slow background without epileptiform discharges. There was a prior CT scan of the head that showed mild atrophy without foca l abnormalities in terms of the head CT scan. In terms of her assessment, she is again the patient w ith moderate encephalopathy likely metabolic in etiology. She has slightly improved compared to the first evaluation, but not significantly so. It is possible with time she may show some improvement i n responsiveness. However, it is very difficult to predict at this point. But given the CT scan of the head showing just mild atrophy without any other findings and EEG consistent with metabolic encep halopathy and significant electrolyte abnormalities. It is possible that she may make some form of r ecovery to a baseline of cognitive dysfunction when electrolytes have been addressed adequately. At this point, the recommendation is to continue with supportive care. Continue with electrolyte replac ement. The patient's family is trying to get her transferred to [facility] and it is okay for them to purs ue that. This was discussed with Dr. Martin. CHEYANNE/BILLIE Voice ID: [id number] Report ID: [id number]
[2024-10-05] MEDS: MAGNESIUM SULFATE 1 gm IVPB 1 GM/100 ML BAG IV ONE (00:27)
[2024-10-05 05:44] LABS: Absolute Eosinophils 0.3 K/uL (0-0.5); Absolute Lymphocytes (CBC) 0.8 K/uL (0.7-4.9); Absolute Monocytes 0.4 K/uL (0.1-1.3); Absolute Neutrophil 3.3 K/uL (1.8-8.0); Basophils % 0.4 % (0-1.3); Eosinophils % 5.3 % (0-4.4); Hematocrit 24.5 % (36.0-45.0); Lymphocytes % 17.4 % (15.3-44.8); MCH 35.6 pg (27.0-35.0); MCHC 36.7 g/dL (32.0-36.0); Monocytes % 9.2 % (3.3-12.3); Neutrophils % 67.7 % (41.7-73.7); Nucleated Red Blood Cells % 0.1 % (0-0); Platelets 67 thou/uL (152-406); RBC Red Blood Cell Count 2.53 M/uL (3.86-4.86); Red Cell Distribution Width 13.4 % (12.1-15.2)
[2024-10-05 06:01] LABS: Anion Gap 7.3 mEq/L (5.0-15.0); Magnesium 1.9 mg/dL (1.6-2.4); Potassium 3.3 mEq/L (3.5-5.1)
[2024-10-05] MEDS: POTASSIUM 25 MEQ EFFERV TAB PO ONE (06:40)
[2024-10-05] MEDS: Mupirocin NASAL 2 APPL/1 GM TUBE NAS SCH (10:18)
[2024-10-05] MEDS: CALCIUM GLUCONATE 1 GM IVPB 2 GM/100 ML BAG IV ONE (10:19)
[2024-10-05] MEDS ORDERED: SODIUM CHLORIDE 0.9% 10ML INJ IV PRN (11:07)
[2024-10-05 11:16] VITALS: BMI 24.0
--- NOTE | 2024-10-05 12:25 | P.PN ---
Subjective Date of Service: 10/05/24 Chief Complaint: COMATOSE, HAD UPPER GI BLEED. Patient appeared to be more awake today, she is verbal and interactive. She passed bedside swallow evaluation. Blood pressure stable, heart rate stable. Patient saturating at 100% on room air. No issues overnight. Sinus rhythm. No reported melena or hematochezia. NG tube in place. Physical Examination - Vital Signs Temperature: 97.3 F Blood Pressure: 130/57 Pulse: 71 Respirations: 18 Pulse Ox (%): 100 - Studies Medications List Reviewed: Yes Assessment And Plan - Plan Physical examination General: Awake, oriented x1, NAD, HEENT: Conjunctiva not pale, anicteric sclera. NG tube is in place. Neck: Supple, no elevated JVD Heart: Heart sounds 1 and 2 normal, regular rhythm, normal rate, no pedal edema Lungs: Clear to auscultation bilaterally, adequate breath sounds bilaterally, no rhonchi or crackles. Abdomen: Soft, nondistended, nontender, normal bowel sounds. Extremities: No tenderness, no deformity Skin: Normal skin turgor, no rash, no nodules or ulcers. Neuro: No focal motor deficit. Normal speech. Psychiatry: Awake, interactive, no agitation. Diagnosis Upper GI bleed Acute blood loss anemia Hepatic encephalopathy Liver cirrhosis Portal hypertension Plan NG tube in place. No more evidence of GI bleed CT abdomen pelvis showing evidence of portosystemic shunt. 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 Patient initially planned for hospice however family changed her mind and they are seeking second opinion regarding treatment. Given the patient is more awake and interactive, will discuss with GI about the possibility of examination and treatment of gastric/esophageal varices if present. Protonix drip changed to IV Protonix twice daily. Continue octreotide drip. Adding nonselective beta-abilio as much as her blood pressure will tolerate. Mental status significantly improved. Neurology Dr. Brothers input appreciated. AMS secondary to hepatic encephalopathy. Ammonia level significantly improved. Continue lactulose and rifaximin. Titrate lactulose to 2 loose bowel movement per day. Patient passed bedside swallow evaluation. Start clear liquid diet. Monitor H&H and transfuse as needed for hemoglobin less than 7 Monitor for active bleeding. Correct hypocalcemia with IV calcium gluconate. Family report patient was ambulatory prior to admission. PT consult to evaluate patient's functional capacity.
--- NOTE | 2024-10-05 20:20 | PN ---
Date of Progress Note: 10/05/2024 Time Of Service: 5 p.m. Subjective: Ms. Cutler is now much better, sitting up, eating a pureed diet. Family at bedside. S he is responsive to verbal commands. She is able to move food towards her mouth, open eyes, move arm s and legs symmetrically, much more improved compared to yesterday. Objective: No obvious fevers, chills, nausea, vomiting. No myalgias, arthralgias. At this point, t he patient does have moderate cognitive impairment at baseline. Physical Examination: Vital Signs: Blood pressure now 144/76, pulse 67, respiratory rate 18, temperature 98, oxygen satura tion 100%. Weight 127 pounds, height 5 feet 1 inch, BMI 24. General: Ms. Cutler is sitting, eating her dinner. She has family members at the bedside. She chastity ears to be in no acute distress. Chest: Good air movement. Abdomen: Soft. Extremities: No significant edema, cyanosis, or clubbing noted in the lower extremities. Laboratory Studies: White blood cell count 4.9, hemoglobin 9.0, platelets are 67. Her ammonia level today is 19. Potassium replaced at 3.9. Calcium still to be replaced. X-ray/imaging: No new x-rays or imaging. Medications: Medications have been reviewed. She does have Bactroban nasal spray on board. She als o has received IV calcium, calcium gluconate 2 g, to help with hypocalcemia. Assessment: Ms. Cutler is an 84-year-old patient with improving metabolic encephalopathy. Her EEG is consistent with that, but is improving. She does have a CT scan of the head showing no acute find ings, chronic small vessel ischemic disease. Again, electrolytes are improving and she is in paralle l improving with that. The patient's family also very happy with her progress. Plan: Continue with supportive care. Continue with current plans to address electrolyte derangement s and continue with evaluation of GI bleed. Once the patient is discharged, should follow up with ga stroenterologist, may follow up with Dr. Brothers's clinic in a month if persistent worsening cogniti ve deficits are identified or if they want to have full workup for dementia. CHEYANNE/BILLIE Voice ID: [id number] Report ID: [id number]
[2024-10-05] MEDS: PANTOPRAZOLE 40 MG INJ IVP SCH (20:22)
[2024-10-05] MEDS: LACTULOSE 20 GM/30 ML UCUP PO SCH (20:48)
[2024-10-05 20:50] LABS: Specific Gravity 1.016 (1.005-1.030); Sqamous Epithelial <5 /HPF (None Seen); Urine Bacteria <20 /HPF (<20); Urine Bilirubin NEGATIVE (Negative); Urine Blood Negative (Negative); Urine Clarity Clear (Clear); Urine Color Yellow (Yellow); Urine Culture Reflex Order NOT NEEDED; Urine Glucose NEGATIVE (Negative); Urine Ketones NEGATIVE (Negative); Urine Micro Reflex YN NO BILL MICROSCOPIC; Urine Mucus Slight /HPF (None Seen); Urine Nitrite NEGATIVE (Negative); Urine Protein TRACE (Negative); Urine RBC <5 /HPF (None Seen); Urine Urobilinogen Normal (Normal); Urine WBC <5 /HPF (<5)
[2024-10-06 06:10] LABS: Absolute Eosinophils 0.3 K/uL (0-0.5); Absolute Lymphocytes (CBC) 1.1 K/uL (0.7-4.9); Absolute Monocytes 0.5 K/uL (0.1-1.3); Absolute Neutrophil 3.2 K/uL (1.8-8.0); Basophils % 0.4 % (0-1.3); Eosinophils % 5.4 % (0-4.4); Hemoglobin 7.6 g/dL (12.0-15.0); Lymphocytes % 21.6 % (15.3-44.8); MCH 35.4 pg (27.0-35.0); MCHC 36.2 g/dL (32.0-36.0); MPV 9.8 fL (7.6-11.3); Monocytes % 9.8 % (3.3-12.3); Neutrophils % 62.8 % (41.7-73.7); Platelets 67 thou/uL (152-406); RBC Red Blood Cell Count 2.14 M/uL (3.86-4.86)
[2024-10-06 06:43] LABS: Albumin 1.7 g/dL (3.4-5.0); Albumin/Globulin Ratio 0.6 (1.1-1.8); Anion Gap 6.7 mEq/L (5.0-15.0); Bilirubin Total 0.7 mg/dL (0.2-1.0); Globulin 2.8 g/dL (2.3-3.5); Magnesium 1.6 mg/dL (1.6-2.4); Potassium 3.7 mEq/L (3.5-5.1); Protein, Total 4.5 g/dL (6.4-8.2)
[2024-10-06] MEDS: KCL 20 MEQ/100 mL IVPB 20 MEQ/100 ML BAG IV SCH (08:29)
[2024-10-06] MEDS: MAGNESIUM SULFATE 1 gm IVPB 1 GM/100 ML BAG IV ONE (08:30)
[2024-10-06] MEDS: CALCIUM GLUCONATE 1 GM IVPB 2 GM/100 ML BAG IV ONE (08:30)
--- NOTE | 2024-10-06 11:04 | P.PN ---
Subjective Date of Service: 10/06/24 Chief Complaint: GI bleeding Subjective: Improving (Patient is improving doing well very alert responsive cooperative vital signs all stable denies any hematemesis or melenic stools) Review of Systems 10-point ROS is otherwise unremarkable Physical Examination - Vital Signs Temperature: 97.9 F Blood Pressure: 128/54 Pulse: 62 Respirations: 12 Pulse Ox (%): 99 - Physical Exam General: Alert, Oriented x3 Respiratory: Clear to auscultation bilaterally Cardiovascular: No edema, Normal pulses, Regular rate/rhythm - Studies Medications List Reviewed: Yes Assessment And Plan - Current Problems (Diagnosis) (1) GI bleed Current Visit: No Status: Acute Plan: Patient is 84 years of age admitted with GI bleeding presumed upper GI awaiting GI consult she is very alert responsive cooperative tolerating a pured diet will DC IV fluids DC IV antibiotics has been slight decline in her hemoglobin labs all reviewed continue to monitor hemoglobin stable to be transferred to the floor change thiamine to 200 mg daily patient has cirrhosis and portal hypertension most likely variceal bleed Qualifiers: GI bleed type/associated pathology: melena Qualified Code(s): K92.1 - Melena
--- NOTE | 2024-10-06 12:31 | P.PN ---
Subjective Date of Service: 10/06/24 Chief Complaint: GI bleeding Patient is awake and interactive. She denies any complaint. She tolerated liquid diet. Blood pressure stable, heart rate stable. Patient saturating at 100% on room air. No reported melena or hematochezia. Physical Examination - Vital Signs Temperature: 98.2 F Blood Pressure: 122/55 Pulse: 67 Respirations: 17 Pulse Ox (%): 100 - Studies Medications List Reviewed: Yes Assessment And Plan - Plan Physical examination General: Awake, oriented x 1, NAD, HEENT: Anicteric sclera. NG tube is in place. Neck: Supple, no elevated JVD Heart: Heart sounds 1 and 2 normal, regular rhythm, normal rate, no pedal edema Lungs: Clear to auscultation bilaterally, adequate breath sounds bilaterally, no rhonchi or crackles. Abdomen: Soft, nondistended, nontender, normal bowel sounds. Extremities: No tenderness, no deformity Skin: Normal skin turgor, no rash Neuro: No focal motor deficit. Normal speech. Psychiatry: Awake, interactive, no agitation. Diagnosis Upper GI bleed Acute blood loss anemia Hepatic encephalopathy Liver cirrhosis Portal hypertension Plan NG tube in place. No more evidence of GI bleed CT abdomen pelvis showing evidence of portosystemic shunt. 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 Patient initially planned for hospice however family changed her mind and they are seeking second opinion regarding treatment. Given the patient is more awake and interactive, will discuss with GI about the possibility of examination and treatment of gastric/esophageal varices if present. Protonix drip changed to IV Protonix twice daily. Continue octreotide drip. Adding nonselective beta-abilio as much as her blood pressure will tolerate. Mental status significantly improved. Neurology Dr. Brothers input appreciated. AMS secondary to hepatic encephalopathy. Ammonia level significantly improved. Continue lactulose and rifaximin. Titrate lactulose to 2 loose bowel movement per day. Patient passed bedside swallow evaluation. Start clear liquid diet. Monitor H&H and transfuse as needed for hemoglobin less than 7 Monitor for active bleeding. Correct hypocalcemia with IV calcium gluconate. Family report patient was ambulatory prior to admission. PT consult to evaluate patient's functional capacity. 10/06 Remove NG tube Clear liquid diet. Discussed with GI diffuse ability of EGD to evaluate for variceal bleed. Continue IV Protonix. Change IV metoprolol to oral nadolol for portal hypertension. Monitor BP and heart rate closely Monitor for active bleeding Replete calcium with IV calcium gluconate Continue lactulose and rifaximin Met with the family-son and daughters and updated them of patient's current condition and plan of care. Family requested we stop the transfer process to [facility]. PT consulted to evaluate patient functional capacity. Transferred to the medical floor.
[2024-10-06 22:49] VITALS: O2SAT 99
[2024-10-07 05:47] LABS: Anion Gap 6.2 mEq/L (5.0-15.0); Magnesium 1.7 mg/dL (1.6-2.4); Phosphorus 1.8 mg/dL (2.5-4.9); Potassium 4.2 mEq/L (3.5-5.1)
[2024-10-07] MEDS: MAGNESIUM SULFATE 1 gm IVPB 1 GM/100 ML BAG IV ONE (10:34)
[2024-10-07] MEDS: THIAMINE HCL 100 MG TABLET PO SCH (10:34)
[2024-10-07] MEDS: nadoloL 40 MG TAB PO SCH (11:08)
--- NOTE | 2024-10-07 12:39 | P.PN ---
Subjective Date of Service: 10/07/24 Chief Complaint: GI bleeding Patient is awake and interactive. She denies any complaint. She has tolerated pured and liquid diet. She is stable on room air No reported melena or hematochezia. Patient ambulated with a walker with therapy today. Physical Examination - Vital Signs Temperature: 98.1 F Blood Pressure: 127/62 Pulse: 66 Respirations: 15 Pulse Ox (%): 96 - Studies Medications List Reviewed: Yes Assessment And Plan - Plan Physical examination General: Awake, oriented x 1, NAD, HEENT: Anicteric sclera. NG tube is in place. Neck: Supple, no elevated JVD Heart: Heart sounds 1 and 2 normal, regular rhythm, normal rate, no pedal edema Lungs: Clear to auscultation bilaterally, adequate breath sounds bilaterally, no rhonchi or crackles. Abdomen: Soft, nondistended, nontender, normal bowel sounds. Extremities: No tenderness, no deformity Skin: Normal skin turgor, no rash Neuro: No focal motor deficit. Normal speech. Psychiatry: Pleasant, no agitation. Diagnosis Upper GI bleed Acute blood loss anemia Hepatic encephalopathy Liver cirrhosis Portal hypertension Plan NG tube in place. No more evidence of GI bleed CT abdomen pelvis showing evidence of portosystemic shunt. 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 Patient initially planned for hospice however family changed her mind and they are seeking second opinion regarding treatment. Given the patient is more awake and interactive, will discuss with GI about the possibility of examination and treatment of gastric/esophageal varices if present. Protonix drip changed to IV Protonix twice daily. Continue octreotide drip. Adding nonselective beta-abilio as much as her blood pressure will tolerate. Mental status significantly improved. Neurology Dr. Brothers input appreciated. AMS secondary to hepatic encephalopathy. Ammonia level significantly improved. Continue lactulose and rifaximin. Titrate lactulose to 2 loose bowel movement per day. Patient passed bedside swallow evaluation. Start clear liquid diet. Monitor H&H and transfuse as needed for hemoglobin less than 7 Monitor for active bleeding. Correct hypocalcemia with IV calcium gluconate. Family report patient was ambulatory prior to admission. PT consult to evaluate patient's functional capacity. 10/06 Remove NG tube Clear liquid diet. Discussed with GI diffuse ability of EGD to evaluate for variceal bleed. Continue IV Protonix. Change IV metoprolol to oral nadolol for portal hypertension. Monitor BP and heart rate closely Monitor for active bleeding Replete calcium with IV calcium gluconate Continue lactulose and rifaximin Met with the family-son and daughters and updated them of patient's current condition and plan of care. Family requested we stop the transfer process to [facility]. PT consulted to evaluate patient functional capacity. Transferred to the medical floor. 10/07 Speech therapy evaluation and then advance diet as tolerated. Anticipating NG tube to be removed after speech evaluation. Continue IV Protonix Nadolol started for portal hypertension. Blood pressure has remained stable. Patient is having regular bowel movement with the current dose lactulose. Continue lactulose and rifaximin. Patient ambulated with therapy today. Continue PT. Anticipating DC within 1 to 2 days if patient tolerates diet no evidence of bleeding. Case discussed with GI Dr. Geller who recommend no intervention since patient is not actively bleeding for now. Transfuse as needed only for hemoglobin less than 7. Continue to monitor H&H.
[2024-10-08 06:01] LABS: Absolute Eosinophils 0.3 K/uL (0-0.5); Absolute Monocytes 0.7 K/uL (0.1-1.3); Absolute Neutrophil 2.5 K/uL (1.8-8.0); Basophils % 0.5 % (0-1.3); Eosinophils % 5.9 % (0-4.4); Hematocrit 21.3 % (36.0-45.0); Hemoglobin 7.6 g/dL (12.0-15.0); Lymphocytes % 35.6 % (15.3-44.8); MCH 35.6 pg (27.0-35.0); MCHC 35.7 g/dL (32.0-36.0); MCV 99.7 fL (80-100); Monocytes % 12.6 % (3.3-12.3); Neutrophils % 45.4 % (41.7-73.7); Platelets 77 thou/uL (152-406); RBC Red Blood Cell Count 2.14 M/uL (3.86-4.86); Red Cell Distribution Width 14.6 % (12.1-15.2)
[2024-10-08 06:21] LABS: Albumin 1.8 g/dL (3.4-5.0); Albumin/Globulin Ratio 0.7 (1.1-1.8); Bilirubin Total 0.8 mg/dL (0.2-1.0); Globulin 2.7 g/dL (2.3-3.5); Magnesium 1.9 mg/dL (1.6-2.4); Protein, Total 4.5 g/dL (6.4-8.2)
[2024-10-08 12:51] VITALS: BP 113/59; TEMP 98
--- NOTE | 2024-10-08 15:46 | P.DS ---
Admission Date: 10/01/24 Discharge Date: 10/08/24 Disposition: HOSPICE-HOME Reason for Admission: GI bleeding Vital Signs/Physical Exam: Temp Pulse Resp BP Pulse Ox 98.0 F 55 18 113/59 L 94 10/08/24 12:00 10/08/24 12:00 10/08/24 12:00 10/08/24 12:00 10/08/24 12:00 Laboratory Data at Discharge: WBC 5.60 thou/uL (4.3-10.9) 10/08/24 05:46 Hgb 7.6 g/dL (12.0-15.0) L 10/08/24 05:46 Hct 21.3 % (36.0-45.0) L 10/08/24 05:46 Plt Count 77 thou/uL (152-406) L 10/08/24 05:46 PT 15.4 SECONDS (10-13.0) H 10/01/24 07:20 INR 1.37 10/01/24 07:20 Sodium 139 mEq/L (136-145) 10/08/24 05:46 Potassium 4.0 mEq/L (3.5-5.1) 10/08/24 05:46 BUN 13 mg/dL (7-18) 10/08/24 05:46 Creatinine 0.87 mg/dL (0.55-1.02) 10/08/24 05:46 Glucose 71 mg/dL (74-106) L 10/08/24 05:46 Phosphorus 1.8 mg/dL (2.5-4.9) L 10/07/24 05:16 Magnesium 1.9 mg/dL (1.6-2.4) 10/08/24 05:46 Total Bilirubin 0.8 mg/dL (0.2-1.0) 10/08/24 05:46 AST 41 U/L (15-37) H 10/08/24 05:46 ALT 23 U/L (13-56) 10/08/24 05:46 Alkaline Phosphatase 73 U/L (45-117) 10/08/24 05:46 Lipase 17 U/L (13-75) 10/02/24 05:15 Home Medications: Memantine HCl 10 mg PO BID 06/15/21 oxyBUTYnin chloride [Oxybutynin Chloride] 5 mg PO BID 08/13/22 Cinacalcet HCl [Sensipar*] 30 mg PO DAILY 10/01/24 Escitalopram [Lexapro*] 5 mg PO BID 10/01/24 Lactulose [Cephulac*] 30 ml PO TID 30 Days #2700 ml 10/08/24 Pantoprazole Sodium 40 mg PO DAILY 30 Days #30 tab 10/08/24 Rifaximin [Xifaxan] 550 mg PO BID 30 Days #60 tab 10/08/24 nadoloL [Nadolol] 20 mg PO DAILY 30 Days #30 tab 10/08/24 New Medications: Lactulose [Cephulac*] 30 ml PO TID 30 Days #2700 ml nadoloL [Nadolol] 20 mg PO DAILY 30 Days #30 tab Pantoprazole Sodium 40 mg PO DAILY 30 Days #30 tab Rifaximin [Xifaxan] 550 mg PO BID 30 Days #60 tab Physician Discharge Instructions: Physician discharge instructions: Patient presented with altered mentation, dark stools secondary to upper GI bleed and hepatic encephalopathy. Ammonia was 177 on 10/01 and normalized by 4/[address] chest/abd/pelvis on admission showed evidence of portosystemic shunt. Suspect upper GI bleed secondary to esophageal/gastric varices. She was medically managed with IV protonix, octreotide drip, lactulose, and rifaximin. She had gradual improvement of her mentation and diet was slowly advanced. Hemoglobin remained stable in mid 7s from 10/06 to 8. On day of discharge, hemoglobin was 7.6 Dr. Geller [facility] was consulted. Patient was deemed to high risk for any invasive surgical procedure and was managed medically given her stability. She was also started on Nadolol for portal hypertension Dr. Brothers, Neurologist was consulted and felt altered mentation to be secondary to hepatic encephalopathy on top of her chronic medical conditions. Family decided to taake patient home on hospice. Medications: Pantoprazole daily Lactulose and Rifaxmin for cirrhosis / hepatic encephalopathy goal for 1-2 soft bowel movements/day. Some people need to adjust how often they take lactulose in a day to meet the goal of 1-2 BMs/day. While hospitalized, three times a day was working. If having 3-4+ BMs/day can decrease to taking lactulose twice a day. If no bowel movement in a day, can take additional laxatives / enema as needed. Nadolol for portal hypertension Stop: spironolactone-HCTZ - blood pressure was low-normal during hospt ialization. If blood pressure rises and stays elevated consistently, may be beneficial to restart this in the future. Followup: Ted Martin MD [Primary Care Provider] -
== END 2024-10-08 13:57 | disposition hospice, home (50) | DRG 432 ==
LOC: ER 06:52 → ERHOLD 07:49 → 3RD-ICU 18:10 → 4TH 10-06 15:05
PROVIDERS: ADMIT Family Medicine; ATTEND Hospitalist
PROC: 0T9B70Z Drainage of Bladder with Drainage Device, Via Natural or Artificial Opening (ICD-10-PCS; principal; 2024-10-01)
PROC: 0DH67UZ Insertion of Feeding Device into Stomach, Via Natural or Artificial Opening (ICD-10-PCS; 2024-10-03)
PROC: 3E0G76Z Introduction of Nutritional Substance into Upper GI, Via Natural or Artificial Opening (ICD-10-PCS; 2024-10-03)
DX: K74.60 Unspecified cirrhosis of liver (principal); G93.41 Metabolic encephalopathy; I85.11 Secondary esophageal varices with bleeding; K72.11 Chronic hepatic failure with coma; F02.B11 Dementia in other diseases classified elsewhere, moderate, with agitation; D62 Acute posthemorrhagic anemia; K76.6 Portal hypertension; K92.1 Melena; E83.51 Hypocalcemia; Z51.5 Encounter for palliative care; I10 Essential (primary) hypertension; G30.9 Alzheimer's disease, unspecified; E87.6 Hypokalemia; E86.0 Dehydration; E83.42 Hypomagnesemia; Z66 Do not resuscitate; M81.0 Age-related osteoporosis without current pathological fracture; Z78.1 Physical restraint status
CPT/HCPCS: 36415; 70450; 71045; 71250; 74018; 74176; 80048; 80053; 80076; 81001; 82077; 82140; 82947; 83690; 83735; 83880; 84100; 84132; 84484; 85014; 85018; 85025; 85610; 86850; 86900; 86901; 92526; 92610; 93005; 95816; 96372; 97116; 97161; 97530; 99285; J0612; J0692; J0696; J2270; J2354; J2470; J3411; J3430; J3475; J3480; J3486; J7030; J7040; J7042; J7050; J7799